=== PATIENT | male | born 1985 | race Caucasian/White ===

== ENCOUNTER 2016-08-23 14:14 | Inpatient (IN) | payer MEDICAID, OTHER ==
[~2016-08-23] VITALS: Ht 182.9 cm; Wt 118.9 kg
[~2016-08-23 14:14] MED LIST: ASPI81TA3 PO; CARV12.579 PO; FENO48TA4 PO; FURO40TA4 PO; LISI10TA2 PO; LORA1TAB PO
--- NOTE | 2016-08-23 14:23 | ERA ---
ER Documentation Chief Complaint Date/Time DATE: 08/23/16 TIME: 14:23 Chief Complaint facial and right arm numbness; slurred speech HPI The patient is a 30-year-old male, presenting to the ER because of left facial numbness, left upper extremity weakness, slurred speech that began about 8 pm last night. He denies headache, dizziness, neck pain, chest pain, abdominal pain, vomiting, dysuria, diarrhea. He denies diarrhea, constipation. He smokes half a pack a day, drinks socially, does amphetamine Past medical history: Hypertension, dyslipidemia Past surgical history: None ROS All systems reviewed and are negative except as per history of present illness. Medications Home Meds Active Scripts Lorazepam* (Lorazepam*) 1 Mg Tablet, 1 MG PO HS Y for ANXIETY, #20 TAB Prov:XAVIER HARVEY NP 10/20/15 Lisinopril* (Lisinopril*) 10 Mg Tablet, 10 MG PO BID for 30 Days, TAB Prov:XAVIER HARVEY NP 10/20/15 Furosemide* (Furosemide*) 40 Mg Tablet, 40 MG PO DAILY for 30 Days, TAB Prov:XAVIER HARVEY NP 10/20/15 Fenofibrate Nanocrystallized* (Fenofibrate*) 48 Mg Tablet, 48 MG PO DAILY for 30 Days, TAB Prov:XAVIER HARVEY NP 10/20/15 Carvedilol* (Carvedilol*) 12.5 Mg Tablet, 12.5 MG PO BID for 30 Days, TAB Prov:XAVIER HARVEY NP 10/20/15 Aspirin (Aspirin) 81 Mg Chew, 81 MG PO DAILY for 30 Days, TAB Prov:XAVIER HARVEY NP 10/20/15 Reported Medications Clonidine Hcl* (Clonidine Hcl*) 0.1 Mg Tab, 0.1 MG PO Q8, TAB 08/23/16 Allergies Allergies: Coded Allergies: No Known Allergy (Unverified , 10/16/15) PMhx/Soc History of Surgery: No Anesthesia Reaction: No Hx Neurological Disorder: No Hx Respiratory Disorders: No Hx Cardiac Disorders: Yes (DENIES BUT NEW ONSET CHF) Hx Psychiatric Problems: No Hx Miscellaneous Medical Probl: No Hx Alcohol Use: Yes Hx Substance Use: Yes Physical Exam Vitals Vital Signs Date Time Temp Pulse Resp B/P Pulse Ox O2 Delivery O2 Flow Rate FiO2 08/23/16 16:06 100 20 129/100 99 Nasal Cannula 2.0 08/23/16 14:53 89 20 150/97 99 Nasal Cannula 2.0 08/23/16 14:43 Nasal Cannula 2 08/23/16 14:17 98.0 93 19 176/123 100 Physical Exam Const: No acute distress. Head: Atraumatic. Eyes: Normal Conjunctiva. ENT: Normal External Ears, Nose and Mouth. Neck: Full range of motion. No meningismus. Resp: Clear to auscultation bilaterally. Cardio: Regular rate and rhythm, no murmurs. Abd: Soft, non distended, normal bowel sounds, non tender. Skin: No petechiae or rashes. Back: No midline or flank tenderness. Ext: No cyanosis, or edema. Neur: Awake and alert. Left facial droop, left upper extremity 4+, right upper and right lower and left lower extremity 5/5 Psych: Normal Mood and Affect. Result Diagram: 08/23/16 1430 08/23/16 1430 Results 24 hrs Laboratory Tests Test 08/23/16 14:30 Activated Partial Thromboplast Time 31.5Sec Anion Gap 15 Basophils # 0.110^3/ul Basophils % 0.5% Blood Urea Nitrogen 19mg/dl Calcium Level 8.7mg/dl Carbon Dioxide Level 28mmol/L Chloride Level 105mmol/L Creatinine 1.08mg/dl Eosinophils # 0.210^3/ul Eosinophils % 1.6% Ethyl Alcohol Level < 10.0mg/dl Glucose Level 80mg/dl Hematocrit 42.6% Hemoglobin 13.1g/dl INR International Normalized Ratio 1.30 Lymphocytes # 1.710^3/ul Lymphocytes % 15.8% Mean Corpuscular Hemoglobin 26.4pg Mean Corpuscular Hemoglobin Concent 30.8g/dl Mean Corpuscular Volume 85.9fl Mean Platelet Volume 10.2fl Monocytes # 0.810^3/ul Monocytes % 7.3% Neutrophils # 8.110^3/ul Neutrophils % 74.3% Nucleated Red Blood Cells # 0.010^3/ul Nucleated Red Blood Cells % 0.0/100WBC Platelet Count 80035^3/UL Potassium Level 3.4mmol/L Prothrombin Time 16.3Sec Prothrombin Time Ratio 1.3 Red Blood Count 4.9610^6/ul Red Cell Distribution Width 13.7% Sodium Level 145mmol/L White Blood Count 10.910^3/ul Current Medications Medications (Trade) Dose Ordered Sig/Umer Route PRN Reason Start Time Stop Time Status Last Admin Dose Admin Potassium Chloride/Sodium Chloride (KCl/NS) 110 ml @ 55 mls/hr ONCE ONCE IVPB 08/23/16 16:30 08/23/16 18:29 08/23/16 16:52 Aspirin (Aspirin) 325 mg ONCE ONCE PO 08/23/16 16:30 08/23/16 16:31 DC 08/23/16 16:38 Labetalol HCl (Labetalol) 10 mg ONCE ONCE IV 08/23/16 17:30 08/23/16 17:31 DC 08/23/16 17:26 Procedures/MDM [place] [id number] Radiology Main Line: [phone] DIAGNOSTIC IMAGING REPORT Patient: CYN GOODMAN : 1985 Age: 30 Sex: M MR #: [id number] DOS: 08/23/16 1428 Ordering MD: RAKESH SANTOYO MD Location: E/R Room/Bed: PROCEDURE: XR Chest. CLINICAL INDICATION: Stroke. Dyspnea. TECHNIQUE: Single frontal chest x-ray. COMPARISON: 10/18/2015 FINDINGS: The lungs are clear of acute infiltrates, edema, effusions, or masses. Low lung volumes with cardiomegaly is again noted.. .. The osseous structures are intact. IMPRESSION: No acute cardiopulmonary disease. Cardiomegaly. RPTAT: VV .Milad Escobedo MD, Date Time Electronically viewed and signed by .Milad Escobedo MD, MD on 08/23/2016 15:18 .L/ CC: RAKESH SANTOYO MD [place] [id number] Radiology Main Line: [phone] DIAGNOSTIC IMAGING REPORT Patient: CYN GOODMAN : 1985 Age: 30 Sex: M MR #: [id number] DOS: 08/23/16 1428 Ordering MD: RAKESH SANTOYO MD Location: E/R Room/Bed: PROCEDURE: CT Head without. CLINICAL INDICATION: Facial paralysis, possible stroke. TECHNIQUE: The study was performed utilizing a multi-slice, multidetector CT scanner. Direct spiral 1 mm axial sections were obtained through the head without the use of intravenous contrast material. 1 or more of the following dose reduction techniques were utilized: Automated exposure control, adjustment of the mA and/or kV according to patient's size, iterative reconstruction technique. Coronal and sagittal reformations were obtained. The images were reviewed on a PACS workstation. RADIATION DOSE: CTDIvol: 43.3 mGy DLP: 630.2 mGy-cm COMPARISON: No prior studies are available for comparison. FINDINGS: There is no intracranial hemorrhage, extra-axial fluid collection, mass lesion, midline shift or hydrocephalus. The ventricles, sulci and cisterns are within normal limits. The white matter is unremarkable. The kim-white matter differentiation is preserved. The basal cisterns are patent. The midline structures are intact. The orbits, calvarium and extracranial soft tissues are normal in appearance. The visualized paranasal sinuses, mastoid air cells and middle ear cavities are normally aerated. IMPRESSION: 1. No acute intracranial abnormality. No intracranial hemorrhage, extra-axial fluid collection, mass lesion or hydrocephalous. 2. No definite extension of hypodensity through the cortex to suggest acute infarct at this time. If clinical concern for infarct, MRI is recommended for further evaluation. RPTAT: DD .Gildardo Pena MD, MD Date Time Electronically viewed and signed by .Gildardo Pena MD, MD on 08/23/2016 14: 47 .S/ CC: RAKESH SANTOYO MD EKG: Read by emergency physician Rate/Rhythm: Normal Sinus Rhythm 85 beats/min QRS, ST, T-waves: No ST elevation, PAC, incomplete right bundle branch block , inferior lateral T abnormality Impression: Abnormal EKG MEDICAL MAKING DECISION: The patient is a 30-year-old male, presenting with subacute CVA with left upper extremity weakness, acute hypokalemia. He was treated with potassium chloride 20 mEq IV, aspirin 325 mg p.o. The differential diagnoses considered include but are not limited to central causes such as cerebellar infarct, cerebellar hemorrhage, cerebellar tumor, acoustic neuroma, peripheral causes such as benign positional vertigo, labyrinthitis, medication, Meniere's disease. Departure Diagnosis: Primary Impression: CVA (cerebral vascular accident) Additional Impression: Hypokalemia Condition: Stable Comments I discussed the findings with the patient. I discussed the patient with his physician Dr. Liriano who was made aware of the lab, the treatment, the patient condition. The patient is admitted to telemetry at 4:45 pm RAKESH SANTOYO MD Aug 23, 2016 14:23
--- NOTE | 2016-08-23 14:48 | RADRPT ---
PROCEDURE: CT Head without. CLINICAL INDICATION: Facial paralysis, possible stroke. TECHNIQUE: The study was performed utilizing a multi-slice, multidetector CT scanner. Direct spira l 1 mm axial sections were obtained through the head without the use of intravenous contrast materia l. 1 or more of the following dose reduction techniques were utilized: Automated exposure control, adjustment of the mA and/or kV according to patient's size, iterative reconstruction technique. Co sugar and sagittal reformations were obtained. The images were reviewed on a PACS workstation. RADIATION DOSE: CTDIvol: 43.3 mGyDLP: 630.2 mGy-cm COMPARISON: No prior studies are available for comparison. FINDINGS: There is no intracranial hemorrhage, extra-axial fluid collection, mass lesion, midline shift or hyd rocephalus. The ventricles, sulci and cisterns are within normal limits. The white matter is unrem arkable. The kim-white matter differentiation is preserved. The basal cisterns are patent. The m idline structures are intact. The orbits, calvarium and extracranial soft tissues are normal in kassie earance. The visualized paranasal sinuses, mastoid air cells and middle ear cavities are normally ae rated. IMPRESSION: 1. No acute intracranial abnormality. No intracranial hemorrhage, extra-axial fluid collection, ma ss lesion or hydrocephalous. 2. No definite extension of hypodensity through the cortex to suggest acute infarct at this time. If clinical concern for infarct, MRI is recommended for further evaluation. RPTAT: DD .Gildardo Pena MD, MD Date Time Electronically viewed and signed by .Gildardo Pena MD, on 08/23/2016 14:47 .S/
[2016-08-23 14:50] LABS: ADD SCAN DIFF NO
[2016-08-23 15:00] LABS: BASOPHIL # 0.1 10^3/ul (0.0-0.1); BASOPHILS % 0.5 % (0.0-2.0); EOSINOPHILS # 0.2 10^3/ul (0.0-0.5); EOSINOPHILS % 1.6 % (0.0-7.0); HEMATOCRIT 42.6 % (42.0-52.0); HEMOGLOBIN 13.1 g/dl (14.0-18.0); LYMPHOCYTES # 1.7 10^3/ul (0.8-2.9); LYMPHOCYTES % 15.8 % (15.0-51.0); MEAN CORPUSCULAR HEMOGLOBIN 26.4 pg (29.0-33.0); MEAN CORPUSCULAR HGB CONC 30.8 g/dl (32.0-37.0); MEAN CORPUSCULAR VOLUME 85.9 fl (82.0-101.0); MEAN PLATELET VOLUME 10.2 fl (7.4-10.4); MONOCYTE # 0.8 10^3/ul (0.3-0.9); MONOCYTES % 7.3 % (0.0-11.0); NEUTROPHIL # 8.1 10^3/ul (1.6-7.5); NEUTROPHILS % 74.3 % (39.0-77.0); PLATELET COUNT 407 10^3/UL (140-415); RED BLOOD COUNT 4.96 10^6/ul (4.70-6.10); RED CELL DISTRIBUTION WIDTH 13.7 % (11.5-14.5); WHITE BLOOD COUNT 10.9 10^3/ul (4.8-10.8)
[2016-08-23 15:07] LABS: INR 1.3; PROTIME 16.3 Sec (12.2-14.2); PT RATIO 1.3
[2016-08-23 15:08] LABS: PARTIAL THROMBOPLASTIN TIME 31.5 Sec (25.0-35.0)
[2016-08-23 15:12] LABS: CHLORIDE 105 mmol/L (97-110)
[2016-08-23 15:13] LABS: POTASSIUM 3.4 mmol/L (3.5-5.1); SODIUM 145 mmol/L (135-144)
[2016-08-23 15:15] LABS: CREATININE 1.08 mg/dl (0.61-1.24)
[2016-08-23 15:16] LABS: ANION GAP 15 (8-16); BLOOD UREA NITROGEN 19 mg/dl (7-20); CALCIUM 8.7 mg/dl (8.4-10.2); CARBON DIOXIDE 28 mmol/L (21-31); GLUCOSE 80 mg/dl (70-220)
[2016-08-23] MEDS ORDERED: CLON-379 PO (15:18)
--- NOTE | 2016-08-23 15:19 | RADRPT ---
PROCEDURE: XR Chest. CLINICAL INDICATION: Stroke. Dyspnea. TECHNIQUE: Single frontal chest x-ray. COMPARISON: 10/18/2015 FINDINGS: The lungs are clear of acute infiltrates, edema, effusions, or masses. Low lung volumes with cardiom egaly is again noted.. .. The osseous structures are intact. IMPRESSION: No acute cardiopulmonary disease. Cardiomegaly. RPTAT: VV .Milad Escobedo MD, MD Date Time Electronically viewed and signed by .Milad Escobedo MD, on 08/23/2016 15:18 .L/
[2016-08-23 16:26] LABS: ETHANOL < 10.0 mg/dl
[2016-08-23] MEDS ORDERED: POTASSIUM CHLORIDE 20 MEQ in SOD CHLORIDE 0.9% 100 ML IVPB ONE (16:30)
[2016-08-23] MEDS ORDERED: ASPIRIN 325 MG TAB PO ONE (16:30)
[2016-08-23] MEDS ORDERED: LABETALOL HCL 20MG INJ IV ONE (17:30)
[2016-08-23 18:24] VITALS: TEMP 98
[2016-08-23 20:00] VITALS: BP 146/95; PULSE 89; RESP 24
[2016-08-23] MEDS ORDERED: ACETAMINOPHEN 325 MG TAB PO PRN (20:00)
[2016-08-23 20:36] VITALS: PULSE 88
--- NOTE | 2016-08-23 22:46 | RADRPT ---
PROCEDURE: Carotid ultrasound CLINICAL INDICATION: Stroke, carotid bruits TECHNIQUE: Fitzgerald scale, color doppler, spectral doppler ultrasound of the bilateral carotid and romario tebral arteries. This study indirectly references the measurement of the distal ICA diameter as the denominator for s tenosis measurement. Validated velocity measurements with angiographic measurements, velocity criter ia are extrapolated from diameter data as defined by: *Cartoid artery stenosis: fitzgerald-scale and Doppl er US diagnosis. Society of Radiologists in Ultrasound Consensus Conference. Radiology 2003; 229: 34 0-346. SRU Consensus Conference Criteria for the Diagnosis of Carotid Artery Stenosis* Degree of Stenosis, % ICA PSV, cm/sec Plaque Estimate, % ICA/CCA PSV Ratio Normal <125 None <2.0 <50 <125 <50 <2.0 50 69 125-230 >50 2.0-4.0 >70 but less than near occlusion >230 >50 <4.0 Near occlusion High, low, or undetectable Visible Variable Total occlusion Undetectable Visible, no detectable lumen Not applicable COMPARISON: No prior studies are available for comparison. FINDINGS: Location Right CCA43 cm/sec Prox ICA 28 cm/sec Mid ICA36 cm/sec Dist ICA32 cm/sec ECA51 cm/sec ICA/CCA0.9 Left CCA53 cm/sec Prox ICA 25 cm/sec Mid ICA23 cm/sec Dist ICA27 cm/sec ECA61 cm/sec ICA/CCA0.5 Plaque burden: A minimal amount of plaque is present within the visualized portions of both internal carotid arteries however there is no evidence of flow acceleration to suggest a hemodynamically sig nificant stenosis. Antegrade flow is seen within the vertebral arteries bilaterally. IMPRESSION: A minimal amount of plaque is present within the visualized portions of both internal carotid arteri es however there is no evidence of flow acceleration to suggest a hemodynamically significant stenos is. Low velocities and attenuated waveforms bilaterally may be secondary to heart failure. RPTAT: AADD .Roque Ríos MD, Date Time Electronically viewed and signed by .Roque Ríos MD, MD on 08/23/2016 22:46 .B/
--- NOTE | 2016-08-23 23:17 | RADRPT ---
PROCEDURE: MRI Brain without contrast. CLINICAL INDICATION: Facial paralysis and possible stroke TECHNIQUE: An MRI of the brain was performed on a high resolution hi-definition MRI scanner utiliz ing the following sequences: Sagittal and axial T1 weighted, axial T2 weighted, coronal GRE, axial diffusion weighted with ADC mapping, coronal GRE, and axial FLAIR. COMPARISON: CT brain 08/23/2016 FINDINGS: Mild motion artifact degrades the optimal quality of the study. The scalp and calvarium are normal. The visualized orbits are normal. The paranasal sinuses are rem arkable for mild chronic bilateral maxillary sinus disease. The bilateral mastoid air cells and mid dle ear cavities are clear. On diffusion weighted sequences, restricted diffusion is present in the right posterior frontal rainer r cortex extending from the deep centrum semiovale to the peripheral cortex. In addition a punctate focus of restricted diffusion is also noted in the right occipital cortex. The this is compatible with acute non hemorrhagic infarcts. No extra-axial fluid collections are present. The ventricles and sulci are normal in size and config uration. No evidence of intracranial hemorrhage, mass effect or midline shift is present. No hypoint ense signal abnormalities are seen on the GRE images to suggest the presence of blood degradation pr oducts. decreased flow void is noted in the distal right middle cerebral artery M2 and distal seg ments of the sylvian fissure. IMPRESSION: 1. Acute right frontal lobe and motor cortex non hemorrhagic infarcts and punctate right occipital cortical infarct. Recommend evaluation for embolic etiology. 2. No evidence for acute hemorrhage, hydrocephalus or herniation. 3. Mild chronic bilateral maxillary sinus disease. A call report was made to GIRISH PASCUAL at 08/23/2016 11:13:18 PM following the completion of t he examination by the undersigned. RPTAT: HDC .Peri Guerrero MD, MD Date Time Electronically viewed and signed by .Peri Guerrero MD, MD on 08/23/2016 23:16 .C/
[2016-08-24] VITALS (12 sets, daily range): BP systolic 132–154; BP diastolic 84–104; PULSE 83–98; RESP 17–19; Ht 182.9 cm; Wt 118.9 kg
[2016-08-24] MEDS: ATORVASTATIN 40 MG TAB PO SCH ×2 (00:55→20:50)
[2016-08-24] MEDS ORDERED: NS + KCL 20 MEQ 1,000 ML IV SCH (01:30)
[2016-08-24] MEDS ORDERED: LORAZEPAM 1 MG TAB PO ONE (01:30)
[2016-08-24] MEDS ORDERED: DEXTROSE 5%-0.45% NACL 1,000 ML IV SCH (01:30)
--- NOTE | 2016-08-24 03:38 | CONS ---
DATE OF ADMISSION: 08/23/2016 DATE OF CONSULTATION: 08/23/2016 NEUROLOGY CONSULTATION Thank you, Dr. Liriano, for your kind referral for evaluation of acute stroke. HISTORY OF PRESENT ILLNESS: The patient is a 30-year-old gentleman with past medical history of hyp ertension for the last 2 years on medications for it as well as history of amphetamine abuse who yes terday developed weakness and discoordination in the left upper extremity as well as some facial num bness and slurred speech. He had CAT scan of the head in the emergency department which shows no ac lluvia abnormality. Chest x-ray: Cardiomegaly. Labs: WBC count 11, hemoglobin 13, hematocrit 42. T he rest were within normal limits. Sodium 145, potassium 3.4, chloride 105, bicarbonate 28, BUN 19, creatinine 1.08, normal glucose and calcium. PT 16, PTT 31. Tox screen was not done, but alcohol level is absent. HOME MEDICATIONS: 1. Carvedilol. 2. Clonidine. 3. Fenofibrate. 4. Lisinopril. 5. Aspirin 81 mg. 6. Lorazepam for anxiety. 7. Lasix. CURRENT MEDICATIONS: He is on 1. Aspirin. 2. Tylenol as needed for pain. He complains of headache, but it is gone by now. The patient denies any swallowing difficulties sta ting he was able to drink without any problems. ALLERGIES: THE PATIENT IS NOT ALLERGIC TO ANYTHING. SOCIAL HISTORY: Cigarette smoker, about half a pack per day, as well as episodic amphetamine smoker as well, stating that the last drug use was about 1 week ago. Occasional mild alcohol use. FAMILY HISTORY: Hypertension. REVIEW OF SYSTEMS: All pertinent positives included in the above history of present illness. PHYSICAL EXAMINATION: VITAL SIGNS: Temperature 98.0, pulse 88, respirations 18, blood pressure 113/62. GENERAL: Not in acute distress, sitting on the edge of the bed. HEENT: Normocephalic, atraumatic head. Obese. NECK: Supple. No carotid bruit. LUNGS: Clear to auscultation bilaterally. CARDIAC: Normal cardiac rhythm and sounds. ABDOMEN: Soft, nontender. EXTREMITIES: No cyanosis, clubbing, or edema. NEUROLOGIC: He is awake, alert, and oriented x3 with fluent speech. Cranial nerve examination show s intact visual ugarte bilaterally. Pupils round, reactive from 3 to 2 mm bilaterally. Extraocular movements intact without nystagmus. Mildly asymmetrical face with left nasolabial fold flattening but normal facial sensation. Corneal reflexes present bilaterally as well as gag. Slight deviation of the tongue to the right upon protrusion. Motor strength examination shows about 3/5 strength in the left upper extremity, normal bulk and tone. Sensory examination intact to light touch and pain . Deep tendon reflexes 2+ throughout. Equivocal response to plantar stimulation on the left, downg oing on the right. Coordination examination shows normal [id number] testing on the right and some dysmetria, but no tremor on the left. Gait was not assessed. The patient is hungry and asking for food. IMPRESSION: Acute ischemic stroke in a 30-year-old gentleman with amphetamine abuse as well as hist ory of hypertension as well as smoking. For further evaluation of stroke, we will obtain MRI of the brain, carotid ultrasound, echocardiogram. EKG showed sinus rhythm. So far, we will continue aspi rin for secondary stroke prevention. Keep patient euglycemic. It is okay to allow elevated blood p ressure in the first few days after acute stroke as high as 220/120, and control if higher than thes e numbers. Gradually obtain control over time. We will get formal swallow evaluation and physical therapy evaluation on the patient. We will get his lipid profile as well and start on Lipitor. Thank you very much for this interesting consultation. Dictated By: SAMARA MONTILLA/PANTERA Conf#: [id number] DID#: [id number]
[2016-08-24] MEDS: FUROSEMIDE 40 MG INJ IV SCH (04:44)
[2016-08-24] MEDS ORDERED: ALBUTEROL/IPRATROPIUM (NEB) 3 ML AMP HHN PRN (05:00)
--- NOTE | 2016-08-24 05:43 | HP ---
DATE OF ADMISSION: 08/23/2016 CHIEF COMPLAINT: Left arm weakness, left facial numbness, and slurred speech. HISTORY OF PRESENT ILLNESS: The patient is a 30-year-old gentleman with history of amphetamine abus e, cardiomyopathy with EF of 25% back in 2016. Also history of pulmonary hypertension, hypertension , and dyslipidemia but has not been taking any medication. Noted left-sided weakness, slurred speec h and left facial numbness yesterday at 8 p.m. but did not seek any medical advice and came to ER to day. The patient was not a candidate for TPA. CT of the head was negative. The patient was diagno sed with possible CVA and is being admitted for further evaluation and management. The patient rita es any chest pain. The patient does have shortness of breath on exertion due to cardiomyopathy. No recent fever or chills. No history of bleeding from any site. No history of leg edema. No histor y of abdominal distention. The patient denied any history of . The patient did have headache. The patient is being admitted for further evaluation and management. PAST MEDICAL HISTORY: As stated above. PAST SURGICAL HISTORY: None. ALLERGIES: NONE. HOME MEDICATIONS: None. FAMILY HISTORY: Mother with a history of heart attack. SOCIAL HISTORY: Patient smokes cigarettes, also drinks almost every other day. He uses [employer]. PHYSICAL EXAMINATION: GENERAL: The patient is conscious, awake, alert. VITAL SIGNS: Temperature 98, pulse 87, respirations 18, blood pressure 113/62, O2 saturation 100% o n room air. HEENT: Atraumatic, normocephalic. Conjunctivae and lids normal. Oropharynx clear. NECK: Supple. No mass, no thyromegaly. CHEST: Fairly clear. No use of accessory muscles. CARDIOVASCULAR: S1, S2 normal. No murmur, gallop, or rub. ABDOMEN: Soft, nondistended, nontender. EXTREMITIES: No leg edema. NEUROLOGIC: The patient is awake, alert, follows simple commands, has left-sided facial weakness, l eft upper extremity weakness and minimal left leg weakness. Detailed neuro examination as per Dr. Ti Rice who has been consulted from neurology standpoint. LABORATORY DATA: WBC 10.9, hemoglobin 13.1, platelets 407. Sodium , potassium 3.4, BUN 19, cr eatinine 1, glucose 80. IMPRESSION: 1. Possible cerebrovascular accident. 2. Severe cardiomyopathy. 3. Amphetamine abuse. 4. Tobacco abuse. 5. Mild hypokalemia. PLAN: The patient admitted on telemetry floor. The patient received IV potassium in the ER and mari l be started on aspirin, Lipitor and symptomatic treatment. We will obtain speech therapy, physical therapy and occupational therapy. We will also obtain MRI of the head, carotid Doppler and echocar diogram. Neuro consultation with Dr. Shun Rice has been obtained. Further recommendation s will depend on the patient's hospital course. The patient was strongly advised to quit using bertha evaristo meth and to be more compliant due to multiple medical conditions. Once the patient is able to t huey p.o., he will be started on NIDA inhibitor and beta-scott and will also Lasix. Further recommen dation depends on patient's hospital course. Dictated By: ZACHARIAH AGUILAR MD AB/NTS Conf#: [id number] DID#: [id number] CC: ZACHARIAH AGUILAR MD;*EndCC*
[2016-08-24] MEDS ORDERED: FUROSEMIDE 40 MG TAB PO SCH (06:00)
[2016-08-24] MEDS ORDERED: ASPIRIN 81 MG TAB PO SCH (09:00)
[2016-08-24] MEDS: ASPIRIN 81 MG TAB PO SCH (09:36)
[2016-08-24] MEDS: LISINOPRIL 10 MG TAB PO SCH (09:39)
[2016-08-24] MEDS: FENOFIBRATE 48 MG TAB PO SCH (09:39)
[2016-08-24 13:20] LABS: ADD SCAN DIFF NO
[2016-08-24 13:25] LABS: BASOPHIL # 0.1 10^3/ul (0.0-0.1); BASOPHILS % 0.6 % (0.0-2.0); EOSINOPHILS # 0.1 10^3/ul (0.0-0.5); EOSINOPHILS % 1.2 % (0.0-7.0); HEMATOCRIT 42.1 % (42.0-52.0); HEMOGLOBIN 13.3 g/dl (14.0-18.0); LYMPHOCYTES # 2.4 10^3/ul (0.8-2.9); LYMPHOCYTES % 21.6 % (15.0-51.0); MEAN CORPUSCULAR HEMOGLOBIN 26.1 pg (29.0-33.0); MEAN CORPUSCULAR HGB CONC 31.6 g/dl (32.0-37.0); MEAN CORPUSCULAR VOLUME 82.7 fl (82.0-101.0); MEAN PLATELET VOLUME 9.9 fl (7.4-10.4); MONOCYTES % 9.1 % (0.0-11.0); NEUTROPHIL # 7.4 10^3/ul (1.6-7.5); NEUTROPHILS % 66.9 % (39.0-77.0); PLATELET COUNT 453 10^3/UL (140-415); RED BLOOD COUNT 5.09 10^6/ul (4.70-6.10); RED CELL DISTRIBUTION WIDTH 13.7 % (11.5-14.5)
[2016-08-24 13:33] LABS: POTASSIUM 3.3 mmol/L (3.5-5.1)
[2016-08-24 13:36] LABS: CREATININE 0.89 mg/dl (0.61-1.24)
[2016-08-24 13:37] LABS: CALCIUM 8.6 mg/dl (8.4-10.2)
--- NOTE | 2016-08-24 18:07 | PN ---
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 Continue aspirin. Allow for permissive hypertension. Dr. Rice is following in neurology consultation. PT OT eval. - Severe cardiomyopathy with ejection fraction of 25%. Dr. Montelongo is asked to see patient in cardiology consultation. Continue Lasix, monitor electrolytes. - Amphetamine abuse. Continue gentle hydration. application services manager consult for rehabilitation services. - Tobacco dependence - Hypokalemia, replace potassium. Further recommendations based on clinical course. Plan of care discussed with Dr. Liriano. Subjective 24 Hr Interval Summary Free Text/Dictation Patient is lethargic but easily arousable, follow commands, patient with slurred speech, and left-sided weakness, able to ambulate to the restroom according to RN. Exam/Review of Systems Vital Signs Vitals Vital Signs Date Time Temp Pulse Resp B/P Pulse Ox O2 Delivery O2 Flow Rate FiO2 08/24/16 16:33 90 08/24/16 16:12 98.3 17 132/89 96 08/24/16 14:14 2.0 08/24/16 04:50 Nasal Cannula Intake and Output 08/23/16 08/23/16 08/24/16 15:00 23:00 07:00 Intake Total 700 ml Balance 700 ml Exam Constitutional: alert, obese, well developed Psych: other (Lethargic but easily arousable) Head: atraumatic, normocephalic Eyes: nl conjunctiva ENMT: nl external ears & nose Neck: supple Respiratory: clear to auscultation, normal air movement Cardiovascular: nl pulses, regular rate and rhythm Gastrointestinal: non-tender, soft Musculoskeletal: nl extremities to inspection Extremities: normal pulses Neurological: VESSEL SCRAPPER HELPER II-XII intact, other (Slurred speech, left upper extremity weakness.) Lymph: nl lymph nodes Results Result Diagram: 08/24/16 1230 08/24/16 1230 Results 24 hrs Laboratory Tests Test 08/24/16 12:30 White Blood Count 11.0 H Red Blood Count 5.09 Hemoglobin 13.3 L Hematocrit 42.1 Mean Corpuscular Volume 82.7 Mean Corpuscular Hemoglobin 26.1 L Mean Corpuscular Hemoglobin Concent 31.6 L Red Cell Distribution Width 13.7 Platelet Count 453 H Mean Platelet Volume 9.9 Neutrophils % 66.9 Lymphocytes % 21.6 Monocytes % 9.1 Eosinophils % 1.2 Basophils % 0.6 Nucleated Red Blood Cells % 0.0 Neutrophils # 7.4 Lymphocytes # 2.4 Monocytes # 1.0 H Eosinophils # 0.1 Basophils # 0.1 Nucleated Red Blood Cells # 0.0 Sodium Level 141 Potassium Level 3.3 L Chloride Level 103 Carbon Dioxide Level 24 Anion Gap 17 H Blood Urea Nitrogen 19 Creatinine 0.89 Glucose Level 104 Calcium Level 8.6 Medications Medications Current Medications Acetaminophen (Tylenol Tab) 650 mg Q6H PRN PO PAIN AND OR ELEVATED TEMP Last administered on 08/23/16 20:11; Admin Dose 650 MG; Start 08/23/16 at 20:00 Atorvastatin Calcium (Lipitor) 40 mg HS PO Last administered on 08/24/16 00:55 ; Admin Dose 40 MG; Start 08/23/16 at 21:30 Aspirin (Aspirin) 81 mg DAILY PO Last administered on 08/24/16 09:36; Admin Dose 81 MG; Start 08/24/16 at 09:00 Carvedilol (Coreg) 3.125 mg BID PO Last administered on 08/24/16 09:38; Admin Dose 3.125 MG; Start 08/24/16 at 09:00 Fenofibrate (Tricor) 48 mg DAILY PO Last administered on 08/24/16 09:39; Admin Dose 48 MG; Start 08/24/16 at 09:00 Lisinopril (Zestril) 10 mg DAILY PO Last administered on 08/24/16 09:39; Admin Dose 10 MG; Start 08/24/16 at 09:00 Furosemide (Lasix) 40 mg DAILY@06 IV Last administered on 08/24/16 04:44; Admin Dose 40 MG; Start 08/24/16 at 05:00 JEANNA MYERS Aug 24, 2016 18:07
[2016-08-24] MEDS ORDERED: POTASSIUM CHLORIDE 20 MEQ in SOD CHLORIDE 0.9% 100 ML IVPB ONE (18:30)
--- NOTE | 2016-08-24 19:11 | CONS ---
Date/Time of Note Date/Time of Note DATE: 08/24/16 TIME: 19:06 Assessment/Plan Assessment/Plan Additional Assessment/Plan Acute CVA Mild acute decompensated systolic congestive heart failure Severe cardiomyopathy Active crystal meth use Poor medication compliance -Patient with evidence of CVA on examination and brain MRI. Continue aspirin and statin therapy. Beta-scott and NIDA inhibitor as blood pressure and renal function permits. Diuretic therapy as renal function and blood pressure permits. Of importance is medication compliance and cessation of illicit drug use. Consultation Date/Type/Reason Admit Date/Time Aug 23, 2016 at 16:48 Type of Consultation: cv Reason for Consultation Cardiomyopathy Hx of Present Illness This is a 30-year-old male with unfortunate active crystal meth use, cardiomyopathy who presents with left-sided weakness and dysarthria. Patient with clinical evidence of CVA. Symptoms began day before admission. He also complains of shortness of breath which is worsened with exertion. This usually happens after using crystal meth. He admits to not taking any of his medications. He denies any fevers or chills, chest pain. Shortness of breath has since improved. 12 point review of systems was performed with all pertinent positives and negatives mentioned above and all else is negative Psychological: other (Lethargic but easily arousable) Past Medical History Medical History: congestive heart failure, hypertension Past Surgical History Past Surgical Hx: no surgical history Family History Significant Family History: no pertinent family hx Social History Smoking Status: Former smoker Drug Use: none (Active crystal meth use) Exam/Review of Systems Vital Signs Vitals Vital Signs Date Time Temp Pulse Resp B/P Pulse Ox O2 Delivery O2 Flow Rate FiO2 08/24/16 16:33 90 08/24/16 16:12 98.3 17 132/89 96 08/24/16 14:14 2.0 08/24/16 04:50 Nasal Cannula Intake and Output 08/23/16 08/23/16 08/24/16 15:00 23:00 07:00 Intake Total 700 ml Balance 700 ml Exam Dysarthria Constitutional: alert, obese, oriented Head: normocephalic Neck: supple Respiratory: other (Coarse breath sounds bilaterally, no wheezing rhonchi) Cardiovascular: other (S1-S2 heard), regular rate and rhythm Gastrointestinal: bowel sounds, non-tender, other (No guarding), soft Extremities: edema (Trace), other (No cyanosis) Results Result Diagram: 08/24/16 1230 08/24/16 1230 Results 24 hrs Laboratory Tests Test 08/24/16 12:30 White Blood Count 11.0 H Red Blood Count 5.09 Hemoglobin 13.3 L Hematocrit 42.1 Mean Corpuscular Volume 82.7 Mean Corpuscular Hemoglobin 26.1 L Mean Corpuscular Hemoglobin Concent 31.6 L Red Cell Distribution Width 13.7 Platelet Count 453 H Mean Platelet Volume 9.9 Neutrophils % 66.9 Lymphocytes % 21.6 Monocytes % 9.1 Eosinophils % 1.2 Basophils % 0.6 Nucleated Red Blood Cells % 0.0 Neutrophils # 7.4 Lymphocytes # 2.4 Monocytes # 1.0 H Eosinophils # 0.1 Basophils # 0.1 Nucleated Red Blood Cells # 0.0 Sodium Level 141 Potassium Level 3.3 L Chloride Level 103 Carbon Dioxide Level 24 Anion Gap 17 H Blood Urea Nitrogen 19 Creatinine 0.89 Glucose Level 104 Calcium Level 8.6 Medications Medications Current Medications Acetaminophen (Tylenol Tab) 650 mg Q6H PRN PO PAIN AND OR ELEVATED TEMP Last administered on 08/23/16 20:11; Admin Dose 650 MG; Start 08/23/16 at 20:00 Atorvastatin Calcium (Lipitor) 40 mg HS PO Last administered on 08/24/16 00:55 ; Admin Dose 40 MG; Start 08/23/16 at 21:30 Aspirin (Aspirin) 81 mg DAILY PO Last administered on 08/24/16 09:36; Admin Dose 81 MG; Start 08/24/16 at 09:00 Carvedilol (Coreg) 3.125 mg BID PO Last administered on 08/24/16 09:38; Admin Dose 3.125 MG; Start 08/24/16 at 09:00 Fenofibrate (Tricor) 48 mg DAILY PO Last administered on 08/24/16 09:39; Admin Dose 48 MG; Start 08/24/16 at 09:00 Lisinopril (Zestril) 10 mg DAILY PO Last administered on 08/24/16 09:39; Admin Dose 10 MG; Start 08/24/16 at 09:00 Furosemide 40 mg 40 mg DAILY@06 IV Last administered on 08/24/16 04:44; Admin Dose 40 MG; Start 08/24/16 at 05:00 Potassium Chloride/Sodium Chloride (KCl/NS) 110 ml @ 55 mls/hr ONCE ONCE IVPB ; Start 08/24/16 at 18:30; Stop 08/24/16 at 20:29 Procedures Procedures ECG demonstrates sinus rhythm nurse taking care, incomplete left bundle branch block with QRS 116 ms, nonspecific T-wave abnormalities, left ventricular hypertrophy Redd Montelongo DO Aug 24, 2016 19:11
--- NOTE | 2016-08-24 20:27 | RADRPT ---
Echocardiogram Report Patient Name: CYN GOODMAN Gender: Male Date: 1985 Study Date: 24-Aug-2016 Wastewater Manager: Дмитрий Samuels [facility] Location: [id number] Ref. Physician: SAMARA STOUT Quality: Technically Difficult Study Procedures: Transthoracic echocardiogram with complete 2D, M-Mode, and doppler examination. Indications: Cerebrovascular Accident. 2D/M Mode Doppler Measurement Value Normal Ranges Measurement Value Normal Ranges LVIDd 2D 6.8 3.5 - 5.6 cm AV Peak Dexter 1.2 m/sec LVIDs 2D 5.9 2.1 - 4.1 cm AV Peak PG 5.5 mmHg LVPWd 2D 1.0 0.6 - 1.1 cm LVOT Peak Dexter 0.5 m/sec IVSd 2D 0.9 0.6 - 1.1 cm LVOT Peak PG 1.1 mmHg AoR Diam 2D 2.9 2.0 - 3.7 cm TR Peak Dexter 3.0 m/sec EDV 2D 239.6 cm3 TR Peak PG 35.1 mmHg ESV 2D 209.2 cm3 RVSP 50.0 mmHg LA Dimen 2D 5.4 2.3 - 4.0 cm Findings Left Ventricle: Normal left ventricular wall thickness. Severe enlargement of left ventricle cavity. Severe global left ventricular systolic dysfunction. Ejection fraction is visually estimated at 20 %. Right Ventricle: Mild enlargement of right ventricle. Left Atrium: There is severe enlargement of left atrium. Right Atrium: There is moderate enlargement of right atrium. Mitral Valve: Normal appearance of the mitral valve. Mild mitral valve regurgitation. Aortic Valve: Normal appearance of the aortic valve. No significant aortic stenosis or insufficiency. Tricuspid Valve: Estimated peak PA systolic pressure 50 mmHg. There is mild tricuspid regurgitation. Pulmonic Valve: Pulmonic valve not well visualized. There is mild pulmonic regurgitation. Pericardium: Normal pericardium with no significant pericardial effusion. Aorta: Normal aortic root. IVC: Dilated IVC without respiratory collapse consistent with elevated right atrial pressure. Conclusions Normal left ventricular wall thickness. Severe enlargement of left ventricle cavity. Severe global left ventricular systolic dysfunction. Ejection fraction is visually estimated at 20 %. Mild enlargement of right ventricle. There is severe enlargement of left atrium. There is moderate enlargement of right atrium. Normal appearance of the mitral valve. Mild mitral valve regurgitation. Estimated peak PA systolic pressure 50 mmHg. There is mild tricuspid regurgitation. Pulmonic valve not well visualized. There is mild pulmonic regurgitation. Electronically Signed By: Ronald Majano 24-Aug-2016 20:27:01 -0700 Patient Name: CYN GOODMAN Study Date: 24-Aug-2016 [id number]
--- NOTE | 2016-08-24 20:43 | CONS ---
Date/Time of Note Date/Time of Note DATE: 08/24/16 TIME: 20:40 Consult Date/Type/Reason Admit Date/Time Aug 23, 2016 at 16:48 Initial Consult Date Type of Consultation: neurology Subjective No acute events. No headache. same weakness Objective Vital Signs Date Time Temp Pulse Resp B/P Pulse Ox O2 Delivery O2 Flow Rate FiO2 08/24/16 16:33 90 08/24/16 16:12 98.3 17 132/89 96 08/24/16 14:14 2.0 08/24/16 04:50 Nasal Cannula Intake and Output 08/23/16 08/23/16 08/24/16 15:00 23:00 07:00 Intake Total 700 ml Balance 700 ml Results/Medications Result Diagram: 08/24/16 1230 08/24/16 1230 Results 24 hrs Laboratory Tests Test 08/24/16 12:30 White Blood Count 11.0 H Red Blood Count 5.09 Hemoglobin 13.3 L Hematocrit 42.1 Mean Corpuscular Volume 82.7 Mean Corpuscular Hemoglobin 26.1 L Mean Corpuscular Hemoglobin Concent 31.6 L Red Cell Distribution Width 13.7 Platelet Count 453 H Mean Platelet Volume 9.9 Neutrophils % 66.9 Lymphocytes % 21.6 Monocytes % 9.1 Eosinophils % 1.2 Basophils % 0.6 Nucleated Red Blood Cells % 0.0 Neutrophils # 7.4 Lymphocytes # 2.4 Monocytes # 1.0 H Eosinophils # 0.1 Basophils # 0.1 Nucleated Red Blood Cells # 0.0 Sodium Level 141 Potassium Level 3.3 L Chloride Level 103 Carbon Dioxide Level 24 Anion Gap 17 H Blood Urea Nitrogen 19 Creatinine 0.89 Glucose Level 104 Calcium Level 8.6 Medications Current Medications Acetaminophen (Tylenol Tab) 650 mg Q6H PRN PO PAIN AND OR ELEVATED TEMP Last administered on 08/23/16 20:11; Admin Dose 650 MG; Start 08/23/16 at 20:00 Atorvastatin Calcium (Lipitor) 40 mg HS PO Last administered on 08/24/16 00:55 ; Admin Dose 40 MG; Start 08/23/16 at 21:30 Aspirin (Aspirin) 81 mg DAILY PO Last administered on 08/24/16 09:36; Admin Dose 81 MG; Start 08/24/16 at 09:00 Carvedilol (Coreg) 3.125 mg BID PO Last administered on 08/24/16 09:38; Admin Dose 3.125 MG; Start 08/24/16 at 09:00 Fenofibrate (Tricor) 48 mg DAILY PO Last administered on 08/24/16 09:39; Admin Dose 48 MG; Start 08/24/16 at 09:00 Lisinopril (Zestril) 10 mg DAILY PO Last administered on 08/24/16 09:39; Admin Dose 10 MG; Start 08/24/16 at 09:00 Furosemide (Lasix) 40 mg DAILY@06 IV Last administered on 08/24/16 04:44; Admin Dose 40 MG; Start 08/24/16 at 05:00 Assessment/Plan Chief Complaint/Hosp Course PHYSICAL EXAMINATION: GENERAL: Not in acute distress, sitting on the edge of the bed. HEENT: Normocephalic, atraumatic head. Obese. NECK: Supple. No carotid bruit. LUNGS: Clear to auscultation bilaterally. CARDIAC: Normal cardiac rhythm and sounds. ABDOMEN: Soft, nontender. EXTREMITIES: No cyanosis, clubbing, or edema. NEUROLOGIC: He is awake, alert, and oriented x3 with fluent speech. Cranial nerve examination shows intact visual ugarte bilaterally. Pupils round, reactive from 3 to 2 mm bilaterally. Extraocular movements intact without nystagmus. Mildly asymmetrical face with left nasolabial fold flattening but normal facial sensation. Corneal reflexes present bilaterally as well as gag. Slight deviation of the tongue to the right upon protrusion. Motor strength examination shows about 3/5 strength in the left upper extremity, normal bulk and tone. Sensory examination intact to light touch and pain. Deep tendon reflexes 2+ throughout. Equivocal response to plantar stimulation on the left, downgoing on the right. Coordination examination shows normal [id number] testing on the right and some dysmetria, but no tremor on the left. Gait was not assessed. IMPRESSION: Acute ischemic stroke in a 30-year-old gentleman with amphetamine abuse as well as history of hypertension as well as smoking. I will continue aspirin for secondary stroke prevention. Lipitor. Keep patient euglycemic. It is okay to allow elevated blood pressure in the first few days after acute stroke as high as 220/120, then gradually obtain control over time. PT/OT possible rehab Problems: SAMARA STOUT MD Aug 24, 2016 20:43
[2016-08-25] VITALS (11 sets, daily range): BP systolic 107–177; BP diastolic 64–111; PULSE 83–100; RESP 18–21
[2016-08-25] MEDS: FUROSEMIDE 40 MG INJ IV SCH (05:11)
[2016-08-25 07:00] LABS: CHOL/HDL RATIO 4.8 RATIO
[2016-08-25] MEDS: ASPIRIN 81 MG TAB PO SCH (09:22)
[2016-08-25] MEDS: LISINOPRIL 10 MG TAB PO SCH (09:24)
[2016-08-25] MEDS: FENOFIBRATE 48 MG TAB PO SCH (09:24)
[2016-08-25] MEDS ORDERED: POTASSIUM CHLORIDE (SR) 20 MEQ TAB PO STA (15:16)
--- NOTE | 2016-08-25 15:19 | CONS ---
Date/Time of Note Date/Time of Note DATE: 08/25/16 TIME: 15:18 Assessment/Plan Assessment/Plan Additional Assessment/Plan Acute CVA Mild acute decompensated systolic congestive heart failure Severe cardiomyopathy Active crystal meth use Poor medication compliance -Would increase dose of Coreg, continue aspirin and statin therapy, change Lasix to p.o. Check labs Consultation Date/Type/Reason Admit Date/Time Aug 23, 2016 at 16:48 Initial Consult Date Type of Consultation: cv 24 HR Interval Summary Free Text/Dictation Patient with improvement in shortness of breath. Speech has improved. Denies chest pain Exam/Review of Systems Vital Signs Vitals Vital Signs Date Time Temp Pulse Resp B/P Pulse Ox O2 Delivery O2 Flow Rate FiO2 08/25/16 12:36 83 08/25/16 12:08 98.6 19 146/97 100 08/24/16 14:14 2.0 08/24/16 04:50 Nasal Cannula Intake and Output 08/24/16 08/24/16 08/25/16 15:00 23:00 07:00 Intake Total 950 ml Balance 950 ml Exam Dysarthria but improved Constitutional: alert, obese, oriented Head: normocephalic Neck: supple Respiratory: other (Coarse breath sounds bilaterally, no wheezing) Cardiovascular: other (S1-S2 heard), regular rate and rhythm Gastrointestinal: bowel sounds, non-tender, other (No guarding), soft Extremities: edema (Trace), other (No cyanosis) Results Result Diagram: 08/24/16 1230 08/24/16 1230 Results 24 hrs Laboratory Tests Test 08/25/16 06:21 Triglycerides Level 95 Cholesterol Level 120 LDL Cholesterol, Calculated 76 HDL Cholesterol 25 L Cholesterol/HDL Ratio 4.8 Medications Medications Current Medications Acetaminophen (Tylenol Tab) 650 mg Q6H PRN PO PAIN AND OR ELEVATED TEMP Last administered on 08/23/16 20:11; Admin Dose 650 MG; Start 08/23/16 at 20:00 Atorvastatin Calcium (Lipitor) 40 mg HS PO Last administered on 08/24/16 20:50 ; Admin Dose 40 MG; Start 08/23/16 at 21:30 Aspirin (Aspirin) 81 mg DAILY PO Last administered on 08/25/16 09:22; Admin Dose 81 MG; Start 08/24/16 at 09:00 Carvedilol (Coreg) 3.125 mg BID PO Last administered on 08/25/16 09:23; Admin Dose 3.125 MG; Start 08/24/16 at 09:00 Fenofibrate (Tricor) 48 mg DAILY PO Last administered on 08/25/16 09:24; Admin Dose 48 MG; Start 08/24/16 at 09:00 Lisinopril (Zestril) 10 mg DAILY PO Last administered on 08/25/16 09:24; Admin Dose 10 MG; Start 08/24/16 at 09:00 Furosemide (Lasix) 40 mg DAILY@06 IV Last administered on 08/25/16 05:11; Admin Dose 40 MG; Start 08/24/16 at 05:00 Redd Montelongo DO Aug 25, 2016 15:19
[2016-08-25] MEDS: ATORVASTATIN 40 MG TAB PO SCH (20:20)
--- NOTE | 2016-08-25 20:34 | CONS ---
Date/Time of Note Date/Time of Note DATE: 08/25/16 TIME: 20:33 Consult Date/Type/Reason Admit Date/Time Aug 23, 2016 at 16:48 Type of Consultation: neurology Subjective no acute events Objective Vital Signs Date Time Temp Pulse Resp B/P Pulse Ox O2 Delivery O2 Flow Rate FiO2 08/25/16 20:13 98.2 89 18 177/111 95 08/24/16 14:14 2.0 08/24/16 04:50 Nasal Cannula Intake and Output 08/24/16 08/24/16 08/25/16 15:00 23:00 07:00 Intake Total 950 ml Balance 950 ml Results/Medications Result Diagram: 08/24/16 1230 08/24/16 1230 Results 24 hrs Laboratory Tests Test 08/25/16 06:21 Triglycerides Level 95 Cholesterol Level 120 LDL Cholesterol, Calculated 76 HDL Cholesterol 25 L Cholesterol/HDL Ratio 4.8 Medications Current Medications Acetaminophen (Tylenol Tab) 650 mg Q6H PRN PO PAIN AND OR ELEVATED TEMP Last administered on 08/23/16 20:11; Admin Dose 650 MG; Start 08/23/16 at 20:00 Atorvastatin Calcium (Lipitor) 40 mg HS PO Last administered on 08/25/16 20:20 ; Admin Dose 40 MG; Start 08/23/16 at 21:30 Aspirin (Aspirin) 81 mg DAILY PO Last administered on 08/25/16 09:22; Admin Dose 81 MG; Start 08/24/16 at 09:00 Fenofibrate (Tricor) 48 mg DAILY PO Last administered on 08/25/16 09:24; Admin Dose 48 MG; Start 08/24/16 at 09:00 Lisinopril (Zestril) 10 mg DAILY PO Last administered on 08/25/16 09:24; Admin Dose 10 MG; Start 08/24/16 at 09:00 Carvedilol (Coreg) 6.25 mg BID PO Last administered on 08/25/16 20:20; Admin Dose 6.25 MG; Start 08/25/16 at 21:00 Furosemide (Lasix) 40 mg DAILY PO ; Start 08/26/16 at 09:00 Assessment/Plan Chief Complaint/Hosp Course PHYSICAL EXAMINATION: GENERAL: Not in acute distress, sitting on the edge of the bed. HEENT: Normocephalic, atraumatic head. Obese. NECK: Supple. No carotid bruit. LUNGS: Clear to auscultation bilaterally. CARDIAC: Normal cardiac rhythm and sounds. ABDOMEN: Soft, nontender. EXTREMITIES: No cyanosis, clubbing, or edema. NEUROLOGIC: He is lethargic, arousable becomes alert, and oriented x3 with fluent speech. Cranial nerve examination shows intact visual ugarte bilaterally. Pupils round, reactive from 3 to 2 mm bilaterally. Extraocular movements intact without nystagmus. Mildly asymmetrical face with left nasolabial fold flattening but normal facial sensation. Corneal reflexes present bilaterally as well as gag. Slight deviation of the tongue to the right upon protrusion. Motor strength examination shows about 3/5 strength in the left upper extremity, normal bulk and tone. Sensory examination intact to light touch and pain. Deep tendon reflexes 2+ throughout. Equivocal response to plantar stimulation on the left, downgoing on the right. Coordination examination shows normal [id number] testing on the right and some dysmetria, but no tremor on the left. Gait was not assessed. IMPRESSION: Acute ischemic stroke in a 30-year-old gentleman with amphetamine abuse as well as history of hypertension as well as smoking. I will continue aspirin for secondary stroke prevention. Lipitor. Keep patient euglycemic, normotensive. PT/OT possible rehab Problems: SAMARA STOUT MD Aug 25, 2016 20:34
--- NOTE | 2016-08-25 21:15 | PN ---
Date/Time of Note Date/Time of Note DATE: 08/25/16 TIME: 21:12 Assessment/Plan VTE Prophylaxis VTE Prophylaxis Intervention: SCD's Lines/Catheters IV Catheter Type (from Nrsg): Saline Lock Assessment/Plan Assessment/Plan - Acute right frontal lobe and motor cortex non hemorrhagic infarcts and punctate right occipital cortical infarct. Continue aspirin. Allow for permissive hypertension. Dr. Rice is following in neurology consultation. PT OT eval. - Severe cardiomyopathy with ejection fraction of 25%. Dr. Montelongo is asked to see patient in cardiology consultation. Continue Lasix, monitor electrolytes. - Amphetamine abuse. Continue gentle hydration. computing services director consult for rehabilitation services. - Tobacco dependence - provide smoking cessation - Hypokalemia, replace potassium.- no labs available today Further recommendations based on clinical course. Plan of care discussed with Dr. Liriano. Subjective 24 Hr Interval Summary Eyes: no complaints ENT: no complaints Respiratory: no complaints Cardiovascular: no complaints Gastrointestinal: no complaints Genitourinary: no complaints Musculoskeletal: no complaints Skin: no complaints Exam/Review of Systems Vital Signs Vitals Vital Signs Date Time Temp Pulse Resp B/P Pulse Ox O2 Delivery O2 Flow Rate FiO2 08/25/16 20:47 100 08/25/16 20:13 98.2 18 177/111 95 08/24/16 14:14 2.0 08/24/16 04:50 Nasal Cannula Intake and Output 08/24/16 08/24/16 08/25/16 15:00 23:00 07:00 Intake Total 950 ml Balance 950 ml Exam Constitutional: alert, oriented Psych: no complaints Eyes: EOMI, PERRL, nl sclera ENMT: nl external ears & nose Neck: non-tender Respiratory: clear to auscultation Cardiovascular: nl pulses Gastrointestinal: non-tender, soft Musculoskeletal: nl extremities to inspection Extremities: normal pulses Neurological: nl speech Lymph: nontender Results Result Diagram: 08/24/16 1230 08/24/16 1230 Results 24 hrs Laboratory Tests Test 08/25/16 06:21 Triglycerides Level 95 Cholesterol Level 120 LDL Cholesterol, Calculated 76 HDL Cholesterol 25 L Cholesterol/HDL Ratio 4.8 Medications Medications Current Medications Acetaminophen (Tylenol Tab) 650 mg Q6H PRN PO PAIN AND OR ELEVATED TEMP Last administered on 08/23/16t 20:11; Admin Dose 650 MG; Start 08/23/16 at 20:00 Atorvastatin Calcium (Lipitor) 40 mg HS PO Last administered on 08/25/16 20:20 ; Admin Dose 40 MG; Start 08/23/16 at 21:30 Aspirin (Aspirin) 81 mg DAILY PO Last administered on 08/25/16 09:22; Admin Dose 81 MG; Start 08/24/16 at 09:00 Fenofibrate (Tricor) 48 mg DAILY PO Last administered on 08/25/16 09:24; Admin Dose 48 MG; Start 08/24/16 at 09:00 Lisinopril (Zestril) 10 mg DAILY PO Last administered on 08/25/16 09:24; Admin Dose 10 MG; Start 08/24/16 at 09:00 Carvedilol (Coreg) 6.25 mg BID PO Last administered on 08/25/16 20:20; Admin Dose 6.25 MG; Start 08/25/16 at 21:00 Furosemide (Lasix) 40 mg DAILY PO ; Start 08/26/16 at 09:00 DARRICK ZULUAGA Aug 25, 2016 21:15
[2016-08-25 22:19] LABS: ADD SCAN DIFF NO
[2016-08-25 22:21] LABS: BASOPHIL # 0.1 10^3/ul (0.0-0.1); BASOPHILS % 0.5 % (0.0-2.0); EOSINOPHILS # 0.2 10^3/ul (0.0-0.5); EOSINOPHILS % 1.9 % (0.0-7.0); HEMATOCRIT 42.9 % (42.0-52.0); HEMOGLOBIN 13.2 g/dl (14.0-18.0); LYMPHOCYTES # 1.8 10^3/ul (0.8-2.9); LYMPHOCYTES % 17.1 % (15.0-51.0); MEAN CORPUSCULAR HEMOGLOBIN 25.8 pg (29.0-33.0); MEAN CORPUSCULAR HGB CONC 30.8 g/dl (32.0-37.0); MEAN CORPUSCULAR VOLUME 83.8 fl (82.0-101.0); MEAN PLATELET VOLUME 9.8 fl (7.4-10.4); MONOCYTE # 0.8 10^3/ul (0.3-0.9); MONOCYTES % 7.4 % (0.0-11.0); NEUTROPHIL # 7.5 10^3/ul (1.6-7.5); NEUTROPHILS % 72.5 % (39.0-77.0); PLATELET COUNT 456 10^3/UL (140-415); RED BLOOD COUNT 5.12 10^6/ul (4.70-6.10); RED CELL DISTRIBUTION WIDTH 13.5 % (11.5-14.5); WHITE BLOOD COUNT 10.3 10^3/ul (4.8-10.8)
[2016-08-25 22:38] LABS: POTASSIUM 3.6 mmol/L (3.5-5.1)
[2016-08-25 22:40] LABS: CREATININE 0.94 mg/dl (0.61-1.24)
[2016-08-25 22:41] LABS: CALCIUM 8.8 mg/dl (8.4-10.2)
[2016-08-26] VITALS (9 sets, daily range): BP systolic 160–182; BP diastolic 101–124; PULSE 80–103; RESP 20
[2016-08-26 07:45] LABS: ADD SCAN DIFF NO
[2016-08-26 07:55] LABS: BASOPHIL # 0.1 10^3/ul (0.0-0.1); BASOPHILS % 0.5 % (0.0-2.0); EOSINOPHILS # 0.3 10^3/ul (0.0-0.5); EOSINOPHILS % 2.1 % (0.0-7.0); HEMATOCRIT 40.5 % (42.0-52.0); HEMOGLOBIN 12.4 g/dl (14.0-18.0); LYMPHOCYTES # 2.5 10^3/ul (0.8-2.9); LYMPHOCYTES % 20.3 % (15.0-51.0); MEAN CORPUSCULAR HEMOGLOBIN 25.9 pg (29.0-33.0); MEAN CORPUSCULAR HGB CONC 30.6 g/dl (32.0-37.0); MEAN CORPUSCULAR VOLUME 84.7 fl (82.0-101.0); MEAN PLATELET VOLUME 9.7 fl (7.4-10.4); MONOCYTES % 7.9 % (0.0-11.0); NEUTROPHIL # 8.6 10^3/ul (1.6-7.5); NEUTROPHILS % 68.7 % (39.0-77.0); PLATELET COUNT 429 10^3/UL (140-415); RED BLOOD COUNT 4.78 10^6/ul (4.70-6.10); RED CELL DISTRIBUTION WIDTH 13.4 % (11.5-14.5); WHITE BLOOD COUNT 12.5 10^3/ul (4.8-10.8)
[2016-08-26 08:18] LABS: POTASSIUM 3.8 mmol/L (3.5-5.1)
[2016-08-26 08:21] LABS: CREATININE 0.97 mg/dl (0.61-1.24)
[2016-08-26 08:22] LABS: CALCIUM 8.8 mg/dl (8.4-10.2)
[2016-08-26] MEDS: ASPIRIN 81 MG TAB PO SCH (08:54)
[2016-08-26] MEDS: FUROSEMIDE 40 MG TAB PO SCH (08:56)
[2016-08-26] MEDS: FENOFIBRATE 48 MG TAB PO SCH (08:56)
[2016-08-26] MEDS: LISINOPRIL 10 MG TAB PO SCH (08:57)
[2016-08-26] MEDS ORDERED: POTASSIUM CHLORIDE (SR) 20 MEQ TAB PO STA (12:02)
--- NOTE | 2016-08-26 12:04 | CONS ---
Date/Time of Note Date/Time of Note DATE: 08/26/16 TIME: 12:03 Assessment/Plan Assessment/Plan Additional Assessment/Plan Acute CVA Acute decompensated systolic congestive heart failure, improving Severe cardiomyopathy Active crystal meth use Poor medication compliance -Patient with improvement in volume status. Continue p.o. diuretics, given elevated blood pressure, would increase dose of lisinopril. Supplement potassium to maintain above 4.0 and magnesium above 2.0. Consultation Date/Type/Reason Admit Date/Time Aug 23, 2016 at 16:48 Type of Consultation: cv 24 HR Interval Summary Free Text/Dictation Denies shortness of breath, chest pain or palpitation Exam/Review of Systems Vital Signs Vitals Vital Signs Date Time Temp Pulse Resp B/P Pulse Ox O2 Delivery O2 Flow Rate FiO2 08/26/16 09:54 2.0 08/26/16 08:20 98 08/26/16 04:46 98.2 20 182/124 98 08/24/16 04:50 Nasal Cannula Intake and Output 08/25/16 08/25/16 08/26/16 15:00 23:00 07:00 Intake Total 800 ml Balance 800 ml Exam Sleeping but arousable, no apparent distress Head: normocephalic Neck: supple Respiratory: other (Coarse breath sounds bilaterally, no wheezing) Cardiovascular: other (S1-S2 heard), regular rate and rhythm Gastrointestinal: bowel sounds, non-tender, other (No guarding), soft Extremities: edema (Trace), other (No cyanosis) Results Result Diagram: 08/26/16 0712 08/26/16 0717 Results 24 hrs Laboratory Tests Test 08/25/16 21:58 08/26/16 07:12 08/26/16 07:14 08/26/16 07:17 White Blood Count 10.3 12.5 #H Red Blood Count 5.12 4.78 Hemoglobin 13.2 L 12.4 L Hematocrit 42.9 40.5 L Mean Corpuscular Volume 83.8 84.7 Mean Corpuscular Hemoglobin 25.8 L 25.9 L Mean Corpuscular Hemoglobin Concent 30.8 L 30.6 L Red Cell Distribution Width 13.5 13.4 Platelet Count 456 H 429 H Mean Platelet Volume 9.8 9.7 Neutrophils % 72.5 68.7 Lymphocytes % 17.1 20.3 Monocytes % 7.4 7.9 Eosinophils % 1.9 2.1 Basophils % 0.5 0.5 Nucleated Red Blood Cells % 0.0 0.0 Neutrophils # 7.5 8.6 H Lymphocytes # 1.8 2.5 Monocytes # 0.8 1.0 H Eosinophils # 0.2 0.3 Basophils # 0.1 0.1 Nucleated Red Blood Cells # 0.0 0.0 Sodium Level 141 142 Potassium Level 3.6 3.8 Chloride Level 103 106 Carbon Dioxide Level 28 26 Anion Gap 14 14 Blood Urea Nitrogen 21 H 21 H Creatinine 0.94 0.97 Glucose Level 124 92 Calcium Level 8.8 8.8 Magnesium Level 1.5 L Medications Medications Current Medications Acetaminophen (Tylenol Tab) 650 mg Q6H PRN PO PAIN AND OR ELEVATED TEMP Last administered on 08/23/16 20:11; Admin Dose 650 MG; Start 08/23/16 at 20:00 Atorvastatin Calcium (Lipitor) 40 mg HS PO Last administered on 08/25/16 20:20 ; Admin Dose 40 MG; Start 08/23/16 at 21:30 Aspirin (Aspirin) 81 mg DAILY PO Last administered on 08/26/16 08:54; Admin Dose 81 MG; Start 08/24/16 at 09:00 Fenofibrate (Tricor) 48 mg DAILY PO Last administered on 08/26/16 08:56; Admin Dose 48 MG; Start 08/24/16 at 09:00 Lisinopril (Zestril) 10 mg DAILY PO Last administered on 08/26/16 08:57; Admin Dose 10 MG; Start 08/24/16 at 09:00 Carvedilol (Coreg) 6.25 mg BID PO Last administered on 08/26/16 08:56; Admin Dose 6.25 MG; Start 08/25/16 at 21:00 Furosemide (Lasix) 40 mg DAILY PO Last administered on 08/26/16 08:56; Admin Dose 40 MG; Start 08/26/16 at 09:00 Clonidine (Catapres) 0.1 mg Q6H PRN PO ELEVATED SYSTOLIC BP Last administered on 08/26/16 05:51; Admin Dose 0.1 MG; Start 08/26/16 at 05:30 Redd Montelongo DO Aug 26, 2016 12:04
[2016-08-26] MEDS ORDERED: MAGNESIUM SULFATE 3 GM in SOD CHLORIDE 0.9% 100 ML IVPB ONE (14:00)
--- NOTE | 2016-08-26 19:29 | PN ---
Date/Time of Note Date/Time of Note DATE: 08/26/16 TIME: 19:28 Assessment/Plan VTE Prophylaxis VTE Prophylaxis Intervention: SCD's Lines/Catheters [facility] Saline Lock Assessment/Plan Chief Complaint/Hosp Course Assessment/Plan - Acute right frontal lobe and motor cortex non hemorrhagic infarcts and punctate right occipital cortical infarct. Continue aspirin. Allow for permissive hypertension. Dr. Rice is following in neurology consultation. PT OT eval. - Severe cardiomyopathy with ejection fraction of 25%. Dr. Montelongo is following in cardiology consultation. Continue Lasix, monitor electrolytes. - Amphetamine abuse. Continue gentle hydration. financial services sales representative consult for rehabilitation services. - Tobacco dependence - Hypokalemia, replace potassium. Further recommendations based on clinical course. Plan of care discussed with Dr. Liriano. Problems: Exam/Review of Systems Vital Signs Vitals Vital Signs Date Time Temp Pulse Resp B/P Pulse Ox O2 Delivery O2 Flow Rate FiO2 08/26/16 16:43 80 08/26/16 09:54 2.0 08/26/16 04:46 98.2 20 182/124 98 08/24/16 04:50 Nasal Cannula Intake and Output 08/25/16 08/25/16 08/26/16 15:00 23:00 07:00 Intake Total 800 ml Balance 800 ml Exam Constitutional: alert, obese, well developed Psych: other (Lethargic but easily arousable) Head: atraumatic, normocephalic Eyes: nl conjunctiva ENMT: nl external ears & nose Neck: supple Respiratory: clear to auscultation, normal air movement Cardiovascular: nl pulses, regular rate and rhythm Gastrointestinal: non-tender, soft Musculoskeletal: nl extremities to inspection Extremities: normal pulses Neurological: 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-XII 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, other (Slurred speech, left upper extremity weakness.) Lymph: nl lymph nodes Results Result Diagram: 08/26/16 0712 08/26/16 0717 Results 24 hrs Laboratory Tests Test 08/25/16 21:58 08/26/16 07:12 08/26/16 07:14 08/26/16 07:17 White Blood Count 10.3 12.5 #H Red Blood Count 5.12 4.78 Hemoglobin 13.2 L 12.4 L Hematocrit 42.9 40.5 L Mean Corpuscular Volume 83.8 84.7 Mean Corpuscular Hemoglobin 25.8 L 25.9 L Mean Corpuscular Hemoglobin Concent 30.8 L 30.6 L Red Cell Distribution Width 13.5 13.4 Platelet Count 456 H 429 H Mean Platelet Volume 9.8 9.7 Neutrophils % 72.5 68.7 Lymphocytes % 17.1 20.3 Monocytes % 7.4 7.9 Eosinophils % 1.9 2.1 Basophils % 0.5 0.5 Nucleated Red Blood Cells % 0.0 0.0 Neutrophils # 7.5 8.6 H Lymphocytes # 1.8 2.5 Monocytes # 0.8 1.0 H Eosinophils # 0.2 0.3 Basophils # 0.1 0.1 Nucleated Red Blood Cells # 0.0 0.0 Sodium Level 141 142 Potassium Level 3.6 3.8 Chloride Level 103 106 Carbon Dioxide Level 28 26 Anion Gap 14 14 Blood Urea Nitrogen 21 H 21 H Creatinine 0.94 0.97 Glucose Level 124 92 Calcium Level 8.8 8.8 Magnesium Level 1.5 L Medications Medications Current Medications Acetaminophen (Tylenol Tab) 650 mg Q6H PRN PO PAIN AND OR ELEVATED TEMP Last administered on 08/23/16 20:11; Admin Dose 650 MG; Start 08/23/16 at 20:00 Atorvastatin Calcium (Lipitor) 40 mg HS PO Last administered on 08/25/16 20:20 ; Admin Dose 40 MG; Start 08/23/16 at 21:30 Aspirin (Aspirin) 81 mg DAILY PO Last administered on 08/26/16 08:54; Admin Dose 81 MG; Start 08/24/16 at 09:00 Fenofibrate (Tricor) 48 mg DAILY PO Last administered on 08/26/16 08:56; Admin Dose 48 MG; Start 08/24/16 at 09:00 Lisinopril (Zestril) 10 mg DAILY PO Last administered on 08/26/16 08:57; Admin Dose 10 MG; Start 08/24/16 at 09:00 Carvedilol (Coreg) 6.25 mg BID PO Last administered on 08/26/16 08:56; Admin Dose 6.25 MG; Start 08/25/16 at 21:00 Furosemide (Lasix) 40 mg DAILY PO Last administered on 08/26/16 08:56; Admin Dose 40 MG; Start 08/26/16 at 09:00 Clonidine (Catapres) 0.1 mg Q6H PRN PO ELEVATED SYSTOLIC BP Last administered on 08/26/16 05:51; Admin Dose 0.1 MG; Start 08/26/16 at 05:30 JEANNA MYERS Aug 26, 2016 19:29
[2016-08-26] MEDS: ATORVASTATIN 40 MG TAB PO SCH (21:45)
[2016-08-27] VITALS (9 sets, daily range): BP systolic 145–177; BP diastolic 98–117; PULSE 82–102; RESP 18–22
[2016-08-27 08:33] LABS: ADD SCAN DIFF NO
[2016-08-27] MEDS: FENOFIBRATE 48 MG TAB PO SCH (08:40)
[2016-08-27] MEDS: ASPIRIN 81 MG TAB PO SCH (08:40)
[2016-08-27] MEDS: FUROSEMIDE 40 MG TAB PO SCH (08:40)
[2016-08-27] MEDS: LISINOPRIL 10 MG TAB PO SCH (08:43)
[2016-08-27 08:52] LABS: BASOPHIL # 0.1 10^3/ul (0.0-0.1); BASOPHILS % 0.6 % (0.0-2.0); EOSINOPHILS # 0.3 10^3/ul (0.0-0.5); EOSINOPHILS % 2.6 % (0.0-7.0); HEMATOCRIT 42.4 % (42.0-52.0); LYMPHOCYTES # 2.4 10^3/ul (0.8-2.9); LYMPHOCYTES % 20.6 % (15.0-51.0); MEAN CORPUSCULAR HEMOGLOBIN 25.8 pg (29.0-33.0); MEAN CORPUSCULAR HGB CONC 30.7 g/dl (32.0-37.0); MEAN CORPUSCULAR VOLUME 84.1 fl (82.0-101.0); MEAN PLATELET VOLUME 9.7 fl (7.4-10.4); MONOCYTE # 0.7 10^3/ul (0.3-0.9); MONOCYTES % 5.9 % (0.0-11.0); NEUTROPHIL # 8.1 10^3/ul (1.6-7.5); NEUTROPHILS % 69.6 % (39.0-77.0); PLATELET COUNT 491 10^3/UL (140-415); RED BLOOD COUNT 5.04 10^6/ul (4.70-6.10); RED CELL DISTRIBUTION WIDTH 13.2 % (11.5-14.5); WHITE BLOOD COUNT 11.6 10^3/ul (4.8-10.8)
[2016-08-27 09:29] LABS: POTASSIUM 3.6 mmol/L (3.5-5.1)
[2016-08-27 09:31] LABS: CREATININE 0.91 mg/dl (0.61-1.24)
[2016-08-27 09:32] LABS: CALCIUM 8.4 mg/dl (8.4-10.2)
--- NOTE | 2016-08-27 11:11 | PN ---
Date/Time of Note Date/Time of Note DATE: 08/27/16 TIME: 11:11 Assessment/Plan VTE Prophylaxis VTE Prophylaxis Intervention: SCD's Lines/Catheters IV Catheter Type (from Nrsg): Saline Lock Assessment/Plan Assessment/Plan Acute CVA Acute decompensated systolic congestive heart failure, improving Severe cardiomyopathy Active crystal meth use Poor medication compliance -Patient with improvement in volume status. Continue lisinopril. Supplement potassium to maintain above 4.0 and magnesium above 2.0. Subjective 24 Hr Interval Summary Free Text/Dictation The patient with no change Exam/Review of Systems Vital Signs Vitals Vital Signs Date Time Temp Pulse Resp B/P Pulse Ox O2 Delivery O2 Flow Rate FiO2 08/27/16 08:00 98 08/27/16 04:00 98.0 20 156/99 96 Room Air 08/27/16 02:03 2.0 Intake and Output 08/26/16 08/26/16 08/27/16 15:00 23:00 07:00 Intake Total 1000 ml 300 ml Balance 1000 ml 300 ml Results Result Diagram: 08/27/16 0733 08/27/16 0733 Results 24 hrs Laboratory Tests Test 08/27/16 07:33 White Blood Count 11.6 H Red Blood Count 5.04 Hemoglobin 13.0 L Hematocrit 42.4 Mean Corpuscular Volume 84.1 Mean Corpuscular Hemoglobin 25.8 L Mean Corpuscular Hemoglobin Concent 30.7 L Red Cell Distribution Width 13.2 Platelet Count 491 H Mean Platelet Volume 9.7 Neutrophils % 69.6 Lymphocytes % 20.6 Monocytes % 5.9 Eosinophils % 2.6 Basophils % 0.6 Nucleated Red Blood Cells % 0.0 Neutrophils # 8.1 H Lymphocytes # 2.4 Monocytes # 0.7 Eosinophils # 0.3 Basophils # 0.1 Nucleated Red Blood Cells # 0.0 Sodium Level 140 Potassium Level 3.6 Chloride Level 105 Carbon Dioxide Level 24 Anion Gap 15 Blood Urea Nitrogen 16 Creatinine 0.91 Glucose Level 127 Calcium Level 8.4 Magnesium Level 1.8 Medications Medications Current Medications Acetaminophen (Tylenol Tab) 650 mg Q6H PRN PO PAIN AND OR ELEVATED TEMP Last administered on 08/23/16 20:11; Admin Dose 650 MG; Start 08/23/16 at 20:00 Atorvastatin Calcium (Lipitor) 40 mg HS PO Last administered on 08/26/16 21:45 ; Admin Dose 40 MG; Start 08/23/16 at 21:30 Aspirin (Aspirin) 81 mg DAILY PO Last administered on 08/27/16 08:40; Admin Dose 81 MG; Start 08/24/16 at 09:00 Fenofibrate (Tricor) 48 mg DAILY PO Last administered on 08/27/16 08:40; Admin Dose 48 MG; Start 08/24/16 at 09:00 Lisinopril (Zestril) 10 mg DAILY PO Last administered on 08/27/16 08:43; Admin Dose 10 MG; Start 08/24/16 at 09:00 Carvedilol (Coreg) 6.25 mg BID PO Last administered on 08/27/16 08:41; Admin Dose 6.25 MG; Start 08/25/16 at 21:00 Furosemide (Lasix) 40 mg DAILY PO Last administered on 08/27/16 08:40; Admin Dose 40 MG; Start 08/26/16 at 09:00 Clonidine (Catapres) 0.1 mg Q6H PRN PO ELEVATED SYSTOLIC BP Last administered on 08/26/16 05:51; Admin Dose 0.1 MG; Start 08/26/16 at 05:30 OTILIA LONDON MD Aug 27, 2016 11:11
--- NOTE | 2016-08-27 18:32 | PN ---
Date/Time of Note Date/Time of Note DATE: 08/27/16 TIME: 18:28 Assessment/Plan VTE Prophylaxis VTE Prophylaxis Intervention: other Lines/Catheters IV Catheter Type (from Nrsg): Saline Lock Assessment/Plan Assessment/Plan - Acute right frontal lobe and motor cortex non hemorrhagic infarcts and punctate right occipital cortical infarct. Continue aspirin. Allow for permissive hypertension. Dr. Rice is following in neurology consultation. PT OT eval. - Severe cardiomyopathy with ejection fraction of 25%. Dr. Montelongo is following in cardiology consultation. Continue Lasix, monitor electrolytes. - Amphetamine abuse. Continue gentle hydration. resident services coordinator consult for rehabilitation services. - Tobacco dependence - Hypokalemia, resolved Further recommendations based on clinical course. Plan of care discussed with Dr. Liriano. Subjective 24 Hr Interval Summary Free Text/Dictation NAD, no headaches, feels better. dw staff- had shower already even he was informed to wait for the MD order. No new issues reported. dw staff. Constitutional: improved Eyes: no complaints ENT: no complaints Respiratory: no complaints Cardiovascular: no complaints Gastrointestinal: no complaints Genitourinary: no complaints Musculoskeletal: no complaints Skin: no complaints Neurologic: no complaints Endocrine: no complaints Lymphatic: no complaints Psychological: no complaints Immunologic: no complaints Exam/Review of Systems Vital Signs Vitals Vital Signs Date Time Temp Pulse Resp B/P Pulse Ox O2 Delivery O2 Flow Rate FiO2 08/27/16 16:00 97.9 96 20 145/101 98 Room Air 08/27/16 02:03 2.0 Intake and Output 08/26/16 08/26/16 08/27/16 15:00 23:00 07:00 Intake Total 1000 ml 300 ml Balance 1000 ml 300 ml Results Result Diagram: 08/27/16 0733 08/27/16 0733 Results 24 hrs Laboratory Tests Test 08/27/16 07:33 White Blood Count 11.6 H Red Blood Count 5.04 Hemoglobin 13.0 L Hematocrit 42.4 Mean Corpuscular Volume 84.1 Mean Corpuscular Hemoglobin 25.8 L Mean Corpuscular Hemoglobin Concent 30.7 L Red Cell Distribution Width 13.2 Platelet Count 491 H Mean Platelet Volume 9.7 Neutrophils % 69.6 Lymphocytes % 20.6 Monocytes % 5.9 Eosinophils % 2.6 Basophils % 0.6 Nucleated Red Blood Cells % 0.0 Neutrophils # 8.1 H Lymphocytes # 2.4 Monocytes # 0.7 Eosinophils # 0.3 Basophils # 0.1 Nucleated Red Blood Cells # 0.0 Sodium Level 140 Potassium Level 3.6 Chloride Level 105 Carbon Dioxide Level 24 Anion Gap 15 Blood Urea Nitrogen 16 Creatinine 0.91 Glucose Level 127 Calcium Level 8.4 Magnesium Level 1.8 Medications Medications Current Medications Acetaminophen (Tylenol Tab) 650 mg Q6H PRN PO PAIN AND OR ELEVATED TEMP Last administered on 08/23/16 20:11; Admin Dose 650 MG; Start 08/23/16 at 20:00 Atorvastatin Calcium (Lipitor) 40 mg HS PO Last administered on 08/26/16 21:45 ; Admin Dose 40 MG; Start 08/23/16 at 21:30 Aspirin (Aspirin) 81 mg DAILY PO Last administered on 08/27/16 08:40; Admin Dose 81 MG; Start 08/24/16 at 09:00 Fenofibrate (Tricor) 48 mg DAILY PO Last administered on 08/27/16 08:40; Admin Dose 48 MG; Start 08/24/16 at 09:00 Lisinopril (Zestril) 10 mg DAILY PO Last administered on 08/27/16 08:43; Admin Dose 10 MG; Start 08/24/16 at 09:00 Carvedilol (Coreg) 6.25 mg BID PO Last administered on 08/27/16 08:41; Admin Dose 6.25 MG; Start 08/25/16 at 21:00 Furosemide (Lasix) 40 mg DAILY PO Last administered on 08/27/16 08:40; Admin Dose 40 MG; Start 08/26/16 at 09:00 Clonidine (Catapres) 0.1 mg Q6H PRN PO ELEVATED SYSTOLIC BP Last administered on 08/26/16 05:51; Admin Dose 0.1 MG; Start 08/26/16 at 05:30 DARRICK ZULUAGA Aug 27, 2016 18:32
[2016-08-27] MEDS: ATORVASTATIN 40 MG TAB PO SCH (20:29)
[2016-08-28] VITALS (11 sets, daily range): BP systolic 165–182; BP diastolic 107–132; PULSE 82–100; RESP 16–22
[2016-08-28] MEDS ORDERED: LORAZEPAM 1 MG TAB PO SCH (04:30)
[2016-08-28] MEDS: LORAZEPAM 1 MG TAB PO PRN ×2 (05:19→16:53)
[2016-08-28] MEDS: ASPIRIN 81 MG TAB PO SCH ×2 (05:56→09:00)
[2016-08-28 08:05] LABS: ADD SCAN DIFF NO
[2016-08-28 08:06] LABS: BASOPHIL # 0.1 10^3/ul (0.0-0.1); BASOPHILS % 0.6 % (0.0-2.0); EOSINOPHILS # 0.3 10^3/ul (0.0-0.5); EOSINOPHILS % 2.6 % (0.0-7.0); HEMATOCRIT 43.1 % (42.0-52.0); HEMOGLOBIN 13.1 g/dl (14.0-18.0); LYMPHOCYTES # 2.8 10^3/ul (0.8-2.9); LYMPHOCYTES % 24.3 % (15.0-51.0); MEAN CORPUSCULAR HEMOGLOBIN 25.6 pg (29.0-33.0); MEAN CORPUSCULAR HGB CONC 30.4 g/dl (32.0-37.0); MEAN CORPUSCULAR VOLUME 84.2 fl (82.0-101.0); MEAN PLATELET VOLUME 9.7 fl (7.4-10.4); MONOCYTE # 0.9 10^3/ul (0.3-0.9); MONOCYTES % 7.9 % (0.0-11.0); NEUTROPHIL # 7.5 10^3/ul (1.6-7.5); NEUTROPHILS % 63.9 % (39.0-77.0); PLATELET COUNT 458 10^3/UL (140-415); RED BLOOD COUNT 5.12 10^6/ul (4.70-6.10); RED CELL DISTRIBUTION WIDTH 13.3 % (11.5-14.5); WHITE BLOOD COUNT 11.7 10^3/ul (4.8-10.8)
[2016-08-28 08:31] LABS: POTASSIUM 3.6 mmol/L (3.5-5.1)
[2016-08-28 08:34] LABS: CREATININE 0.86 mg/dl (0.61-1.24)
[2016-08-28 08:35] LABS: CALCIUM 8.7 mg/dl (8.4-10.2)
[2016-08-28] MEDS: FENOFIBRATE 48 MG TAB PO SCH (08:59)
[2016-08-28] MEDS: FUROSEMIDE 40 MG TAB PO SCH (09:00)
[2016-08-28] MEDS: LISINOPRIL 10 MG TAB PO SCH (09:01)
--- NOTE | 2016-08-28 11:43 | PN ---
Date/Time of Note Date/Time of Note DATE: 08/28/16 TIME: 11:41 Assessment/Plan Lines/Catheters IV Catheter Type (from Nrs): Saline Lock Assessment/Plan Assessment/Plan - Acute right frontal lobe and motor cortex non hemorrhagic infarcts and punctate right occipital cortical infarct. Continue aspirin. Allow for permissive hypertension. Dr. Rice is following in neurology consultation. PT OT eval. - Severe cardiomyopathy with ejection fraction of 25%. Dr. Montelongo is following in cardiology consultation. Continue Lasix, monitor electrolytes. - Amphetamine abuse. Continue gentle hydration. construction services technician consult for rehabilitation services. - Tobacco dependence - Hypokalemia, resolved Further recommendations based on clinical course. Plan of care discussed with Dr. Liriano. Subjective 24 Hr Interval Summary Free Text/Dictation Sleeping, easily awakens, denies any FOSTER, anxiety. family at bed side- all Qs answered. Exam/Review of Systems Vital Signs Vitals Vital Signs Date Time Temp Pulse Resp B/P Pulse Ox O2 Delivery O2 Flow Rate FiO2 08/28/16 08:19 82 08/28/16 05:22 179/120 08/28/16 04:00 97.7 18 99 Room Air 08/27/16 02:03 2.0 Intake and Output 08/27/16 08/27/16 08/28/16 15:00 23:00 07:00 Intake Total 550 ml 900 ml Balance 550 ml 900 ml Exam Constitutional: alert, oriented, well developed Psych: nl mood/affect Eyes: EOMI ENMT: nl external ears & nose Neck: non-tender Respiratory: clear to auscultation Cardiovascular: nl pulses Gastrointestinal: non-tender, soft Musculoskeletal: nl extremities to inspection Neurological: nl mental status Skin: nl turgor Lymph: nontender Results Result Diagram: 08/28/16 0647 08/28/16 0641 Results 24 hrs Laboratory Tests Test 08/28/16 06:41 08/28/16 06:47 Sodium Level 140 Potassium Level 3.6 Chloride Level 105 Carbon Dioxide Level 25 Anion Gap 14 Blood Urea Nitrogen 20 Creatinine 0.86 Glucose Level 96 Calcium Level 8.7 White Blood Count 11.7 H Red Blood Count 5.12 Hemoglobin 13.1 L Hematocrit 43.1 Mean Corpuscular Volume 84.2 Mean Corpuscular Hemoglobin 25.6 L Mean Corpuscular Hemoglobin Concent 30.4 L Red Cell Distribution Width 13.3 Platelet Count 458 H Mean Platelet Volume 9.7 Neutrophils % 63.9 Lymphocytes % 24.3 Monocytes % 7.9 Eosinophils % 2.6 Basophils % 0.6 Nucleated Red Blood Cells % 0.0 Neutrophils # 7.5 Lymphocytes # 2.8 Monocytes # 0.9 Eosinophils # 0.3 Basophils # 0.1 Nucleated Red Blood Cells # 0.0 Medications Medications Current Medications Acetaminophen (Tylenol Tab) 650 mg Q6H PRN PO PAIN AND OR ELEVATED TEMP Last administered on 08/23/16 20:11; Admin Dose 650 MG; Start 08/23/16 at 20:00 Atorvastatin Calcium (Lipitor) 40 mg HS PO Last administered on 08/27/16 20:29 ; Admin Dose 40 MG; Start 08/23/16 at 21:30 Aspirin (Aspirin) 81 mg DAILY PO Last administered on 08/28/16 09:00; Admin Dose 81 MG; Start 08/24/16 at 09:00 Fenofibrate (Tricor) 48 mg DAILY PO Last administered on 08/28/16 08:59; Admin Dose 48 MG; Start 08/24/16 at 09:00 Lisinopril (Zestril) 10 mg DAILY PO Last administered on 08/28/16 09:01; Admin Dose 10 MG; Start 08/24/16 at 09:00 Carvedilol (Coreg) 6.25 mg BID PO Last administered on 08/28/16 09:00; Admin Dose 6.25 MG; Start 08/25/16 at 21:00 Furosemide (Lasix) 40 mg DAILY PO Last administered on 08/28/16 09:00; Admin Dose 40 MG; Start 08/26/16 at 09:00 Clonidine (Catapres) 0.1 mg Q6H PRN PO ELEVATED SYSTOLIC BP Last administered on 08/28/16 03:57; Admin Dose 0.1 MG; Start 08/26/16 at 05:30 Lorazepam (Ativan) 1 mg Q12 PRN PO ANXIETY Last administered on 08/28/16 05:19 ; Admin Dose 1 MG; Start 08/28/16 at 05:00 DARRICK ZULUAGA Aug 28, 2016 11:43
[2016-08-28 14:35] LABS: HAAIG REFLEX REFLEX FILED
--- NOTE | 2016-08-28 14:38 | CONS ---
Date/Time of Note Date/Time of Note DATE: 08/28/16 TIME: 14:30 Assessment/Plan Assessment/Plan Chief Complaint/Hosp Course assessment/impression - mild leukocytosis without fever, r/o occult infection - h/o crystal meth use, no IVDU per Pt - acute non-hemorrhagic CVA - decompensated CHF, severe cardiomyopathy. No valvular vegetation - smoker recommendations - blood cultures x2, urinalysis and urine culture, HIV and hepatitis screen, influenza screen, CXR two views - monitor Pt off empiric antibiotics while waiting for the lab results management d/w Pt and his RN, MELCHOR Bullock Problems: Consultation Date/Type/Reason Admit Date/Time Aug 23, 2016 at 16:48 Date of Consultation: Aug 28, 2016 Type of Consultation: ID Reason for Consultation leukocytosis Hx of Present Illness This is a 30 yo male with active crystal meth use, but not IVDU who presented c/ o slurred speech and numbness of L sided face. His brain imaging showed acute R frontal lobe and motor cortex non hemorrhagic infarcts and punctate right occipital cortical infarct. Pt was also found out to have decompensated systolic CHF and severe cardiomyopathy. During the last three days, Pt was found out to have mild leukocytosis. No abnormal temp has been documented during this admission. 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 Per Pt , he tested negative for hepatitis and HIV in the past. MELCHOR Bullock requested ID consultation on this Pt. Constitutional: improved Eyes: no complaints ENT: no complaints Respiratory: no complaints Cardiovascular: no complaints Gastrointestinal: no complaints Genitourinary: no complaints Musculoskeletal: no complaints Skin: no complaints Neurologic: focal-weakness (L sided face, speech) Endocrine: no complaints Lymphatic: no complaints Psychological: nl mood/affect Immunologic: no complaints Past Medical History Medical History: congestive heart failure, hypertension Past Surgical History Past Surgical Hx: no surgical history Social History Alcohol Use: occasionally Smoking Status: Current every day smoker Drug Use: other (crystal meth) Exam/Review of Systems Vital Signs Vitals Vital Signs Date Time Temp Pulse Resp B/P Pulse Ox O2 Delivery O2 Flow Rate FiO2 08/28/16 12:22 91 08/28/16 12:10 97.8 18 165/107 99 Room Air 08/27/16 02:03 2.0 Intake and Output 08/27/16 08/27/16 08/28/16 15:00 23:00 07:00 Intake Total 550 ml 900 ml Balance 550 ml 900 ml Exam Constitutional: alert, obese, oriented, well developed Psych: nl mood/affect, no complaints Head: atraumatic, normocephalic Eyes: nl conjunctiva, nl lids ENMT: nl external ears & nose, nl nasal mucosa & septum Neck: supple Respiratory: clear to auscultation, normal air movement Cardiovascular: nl pulses, regular rate and rhythm Gastrointestinal: nl liver, spleen, non-tender, soft Genitourinary - Male: No CVA tenderness Musculoskeletal: nl extremities to inspection, nl gait and stance Extremities: normal pulses Neurological: focal weakness (slurred speech, L ptosis) Skin: No rash or lesions Results Result Diagram: 08/28/16 0647 08/28/16 0641 Results 24 hrs Laboratory Tests Test 08/28/16 06:41 08/28/16 06:47 Sodium Level 140 Potassium Level 3.6 Chloride Level 105 Carbon Dioxide Level 25 Anion Gap 14 Blood Urea Nitrogen 20 Creatinine 0.86 Glucose Level 96 Calcium Level 8.7 White Blood Count 11.7 H Red Blood Count 5.12 Hemoglobin 13.1 L Hematocrit 43.1 Mean Corpuscular Volume 84.2 Mean Corpuscular Hemoglobin 25.6 L Mean Corpuscular Hemoglobin Concent 30.4 L Red Cell Distribution Width 13.3 Platelet Count 458 H Mean Platelet Volume 9.7 Neutrophils % 63.9 Lymphocytes % 24.3 Monocytes % 7.9 Eosinophils % 2.6 Basophils % 0.6 Nucleated Red Blood Cells % 0.0 Neutrophils # 7.5 Lymphocytes # 2.8 Monocytes # 0.9 Eosinophils # 0.3 Basophils # 0.1 Nucleated Red Blood Cells # 0.0 Medications Medications Current Medications Acetaminophen (Tylenol Tab) 650 mg Q6H PRN PO PAIN AND OR ELEVATED TEMP Last administered on 08/23/16 20:11; Admin Dose 650 MG; Start 08/23/16 at 20:00 Atorvastatin Calcium (Lipitor) 40 mg HS PO Last administered on 08/27/16 20:29 ; Admin Dose 40 MG; Start 08/23/16 at 21:30 Aspirin (Aspirin) 81 mg DAILY PO Last administered on 08/28/16 09:00; Admin Dose 81 MG; Start 08/24/16 at 09:00 Fenofibrate (Tricor) 48 mg DAILY PO Last administered on 08/28/16 08:59; Admin Dose 48 MG; Start 08/24/16 at 09:00 Lisinopril (Zestril) 10 mg DAILY PO Last administered on 08/28/16 09:01; Admin Dose 10 MG; Start 08/24/16 at 09:00 Carvedilol (Coreg) 6.25 mg BID PO Last administered on 08/28/16 09:00; Admin Dose 6.25 MG; Start 08/25/16 at 21:00 Furosemide (Lasix) 40 mg DAILY PO Last administered on 08/28/16 09:00; Admin Dose 40 MG; Start 08/26/16 at 09:00 Clonidine (Catapres) 0.1 mg Q6H PRN PO ELEVATED SYSTOLIC BP Last administered on 08/28/16 03:57; Admin Dose 0.1 MG; Start 08/26/16 at 05:30 Lorazepam (Ativan) 1 mg Q12 PRN PO ANXIETY Last administered on 08/28/16 05:19 ; Admin Dose 1 MG; Start 08/28/16 at 05:00 FANY CHEUNG M.D. Aug 28, 2016 14:38
[2016-08-28 15:34] LABS: HEPATITIS B CORE ANTIBODY NEGATIVE (NEGATIVE)
[2016-08-28 15:51] LABS: ADD UMIC YES; URINE BILIRUBIN (Dip) NEGATIVE (NEGATIVE); URINE BLOOD (Dip) NEGATIVE (NEGATIVE); URINE COLOR LT. YELLOW (YELLOW); URINE GLUCOSE (Dip) NEGATIVE (NEGATIVE); URINE KETONES (Dip) NEGATIVE (NEGATIVE); URINE LEUKOCYTE ESTERASE (Dip) 1+ (NEGATIVE); URINE NITRITE (Dip) NEGATIVE (NEGATIVE); URINE TOTAL PROTEIN (Dip) NEGATIVE (NEGATIVE); URINE UROBILINOGEN (Dip) 1.0 E.U./dL (0.1-1.0)
[2016-08-28 16:02] LABS: TRANSITIONAL EPI CELLS,URINE MODERATE; URINE RBCS NONE SEEN /HPF (0)
[2016-08-28 16:03] LABS: BACTERIA,URINE FEW
[2016-08-28] MEDS: ATORVASTATIN 40 MG TAB PO SCH (20:32)
--- NOTE | 2016-08-28 21:08 | RADRPT ---
PROCEDURE: XR Chest. CLINICAL INDICATION: Infiltrate TECHNIQUE: PA and lateral chest x-ray. COMPARISON: 08/23/2016 FINDINGS: There is no focal consolidation, pleural effusion or pneumothorax. The aorta is within normal limit s. The cardiac silhouette is enlarged. The osseous structures are intact. IMPRESSION: 1. No acute infiltrate. 2. Enlarged cardiac silhouette. RPTAT: QQ .Ángel Montenegro MD, MD Date Time Electronically viewed and signed by .Ángel Montenegro MD, MD on 08/28/2016 21:08 .d/
[2016-08-29] VITALS (12 sets, daily range): BP systolic 136–171; BP diastolic 89–96; PULSE 83–100; RESP 16–20
[2016-08-29] MEDS: LORAZEPAM 1 MG TAB PO PRN ×2 (05:08→18:51)
--- NOTE | 2016-08-29 08:56 | CONS ---
Date/Time of Note Date/Time of Note DATE: 08/29/16 TIME: 08:55 Assessment/Plan Assessment/Plan Chief Complaint/Hosp Course assessment/impression - mild leukocytosis, possibly due to UTI - possible UTI based on pyuria although Pt denies UTI symptoms - h/o crystal meth use, no IVDU per Pt - acute non-hemorrhagic CVA - decompensated CHF, severe cardiomyopathy. No valvular vegetation - smoker recommendations - I will review the results of: blood cultures x2, urine culture (HIV and hepatitis screen negative) - if urine culture grows, will initiate an antibiotic. management d/w Pt Problems: Consultation Date/Type/Reason Admit Date/Time Aug 23, 2016 at 16:48 Initial Consult Date 08/28/16 Type of Consultation: ID 24 HR Interval Summary Constitutional: no complaints Detailed Summary Eyes: no complaints ENT: no complaints Respiratory: no complaints Cardiovascular: no complaints Gastrointestinal: no complaints Genitourinary: no complaints Musculoskeletal: no complaints Skin: no complaints Exam/Review of Systems Vital Signs Vitals Vital Signs Date Time Temp Pulse Resp B/P Pulse Ox O2 Delivery O2 Flow Rate FiO2 08/29/16 08:26 84 08/29/16 05:10 98.0 16 136/92 98 08/29/16 01:10 Room Air 08/27/16 02:03 2.0 Intake and Output 08/28/16 08/28/16 08/29/16 15:00 23:00 07:00 Intake Total 300 ml 600 ml Balance 300 ml 600 ml Exam Constitutional: alert, oriented, well developed Psych: other (very drowsy today) Eyes: nl conjunctiva, other (L ptosis) Neck: supple Respiratory: clear to auscultation, normal air movement Cardiovascular: nl pulses, regular rate and rhythm Gastrointestinal: non-tender, soft Musculoskeletal: nl extremities to inspection Results Result Diagram: 08/28/16 0647 08/28/16 0641 Results 24 hrs Laboratory Tests Test 08/28/16 15:40 Urine Color LT. YELLOW Urine Clarity HAZY Urine pH 7.5 Urine Specific [place] 1.010 Urine Ketones NEGATIVE Urine Nitrite NEGATIVE Urine Bilirubin NEGATIVE Urine Urobilinogen 1.0 E.U./dL Urine Leukocyte Esterase 1+ H Urine Microscopic RBC NONE SEEN Urine Microscopic WBC >50 Urine Transitional Epithelial Cells MODERATE Urine Bacteria FEW Urine Hemoglobin NEGATIVE Urine Glucose NEGATIVE Urine Total Protein NEGATIVE Medications Medications Current Medications Acetaminophen (Tylenol Tab) 650 mg Q6H PRN PO PAIN AND OR ELEVATED TEMP Last administered on 08/23/16 20:11; Admin Dose 650 MG; Start 08/23/16 at 20:00 Atorvastatin Calcium (Lipitor) 40 mg HS PO Last administered on 08/28/16 20:32 ; Admin Dose 40 MG; Start 08/23/16 at 21:30 Aspirin (Aspirin) 81 mg DAILY PO Last administered on 08/28/16 09:00; Admin Dose 81 MG; Start 08/24/16 at 09:00 Fenofibrate (Tricor) 48 mg DAILY PO Last administered on 08/28/16 08:59; Admin Dose 48 MG; Start 08/24/16 at 09:00 Lisinopril (Zestril) 10 mg DAILY PO Last administered on 08/28/16 09:01; Admin Dose 10 MG; Start 08/24/16 at 09:00 Carvedilol (Coreg) 6.25 mg BID PO Last administered on 08/28/16 20:32; Admin Dose 6.25 MG; Start 08/25/16 at 21:00 Furosemide (Lasix) 40 mg DAILY PO Last administered on 08/28/16 09:00; Admin Dose 40 MG; Start 08/26/16 at 09:00 Clonidine (Catapres) 0.1 mg Q6H PRN PO ELEVATED SYSTOLIC BP Last administered on 08/29/16 01:14; Admin Dose 0.1 MG; Start 08/26/16 at 05:30 Lorazepam (Ativan) 1 mg Q12 PRN PO ANXIETY Last administered on 08/29/16 05:08 ; Admin Dose 1 MG; Start 08/28/16 at 05:00 FANY CHEUNG M.D. Aug 29, 2016 08:56
[2016-08-29] MEDS: FENOFIBRATE 48 MG TAB PO SCH (09:27)
[2016-08-29] MEDS: ASPIRIN 81 MG TAB PO SCH (09:27)
[2016-08-29] MEDS: LISINOPRIL 10 MG TAB PO SCH ×2 (09:27→21:29)
[2016-08-29] MEDS: FUROSEMIDE 40 MG TAB PO SCH (09:28)
[2016-08-29] MEDS ORDERED: POTASSIUM CHLORIDE (SR) 20 MEQ TAB PO STA (11:32)
--- NOTE | 2016-08-29 11:36 | CONS ---
Date/Time of Note Date/Time of Note DATE: 08/29/16 TIME: 11:33 Assessment/Plan Assessment/Plan Additional Assessment/Plan Acute CVA Acute decompensated systolic congestive heart failure, improving Severe cardiomyopathy Active crystal meth use Poor medication compliance -Patient with improvement in volume status and less shortness of breath. Would decrease Lasix to 20 mg daily. Would increase dose of lisinopril secondary to elevated blood pressure. Supplement potassium. DC planning. Consultation Date/Type/Reason Admit Date/Time Aug 23, 2016 at 16:48 Type of Consultation: cv 24 HR Interval Summary Free Text/Dictation Shortness of breath is much better. Denies chest pain, dizziness or palpitations Exam/Review of Systems Vital Signs Vitals Vital Signs Date Time Temp Pulse Resp B/P Pulse Ox O2 Delivery O2 Flow Rate FiO2 08/29/16 09:25 98.0 83 17 171/93 98 Room Air 08/27/16 02:03 2.0 Intake and Output 08/28/16 08/28/16 08/29/16 15:00 23:00 07:00 Intake Total 300 ml 600 ml Balance 300 ml 600 ml Exam Sleeping but arousable, follows commands, no apparent distress Head: normocephalic Neck: supple Respiratory: other (Coarse breath sounds bilaterally, no wheezing) Cardiovascular: other (S1-S2 heard), regular rate and rhythm Gastrointestinal: bowel sounds, non-tender, other, soft Extremities: edema (Trace), other (No cyanosis) Results Result Diagram: 08/28/16 0647 08/28/16 0641 Results 24 hrs Laboratory Tests Test 08/28/16 15:40 Urine Color LT. YELLOW Urine Clarity HAZY Urine pH 7.5 Urine Specific [place] 1.010 Urine Ketones NEGATIVE Urine Nitrite NEGATIVE Urine Bilirubin NEGATIVE Urine Urobilinogen 1.0 E.U./dL Urine Leukocyte Esterase 1+ H Urine Microscopic RBC NONE SEEN Urine Microscopic WBC >50 Urine Transitional Epithelial Cells MODERATE Urine Bacteria FEW Urine Hemoglobin NEGATIVE Urine Glucose NEGATIVE Urine Total Protein NEGATIVE Medications Medications Current Medications Acetaminophen (Tylenol Tab) 650 mg Q6H PRN PO PAIN AND OR ELEVATED TEMP Last administered on 08/23/16 20:11; Admin Dose 650 MG; Start 08/23/16 at 20:00 Atorvastatin Calcium (Lipitor) 40 mg HS PO Last administered on 08/28/16 20:32 ; Admin Dose 40 MG; Start 08/23/16 at 21:30 Aspirin (Aspirin) 81 mg DAILY PO Last administered on 08/29/16 09:27; Admin Dose 81 MG; Start 08/24/16 at 09:00 Fenofibrate (Tricor) 48 mg DAILY PO Last administered on 08/29/16 09:27; Admin Dose 48 MG; Start 08/24/16 at 09:00 Lisinopril (Zestril) 10 mg DAILY PO Last administered on 08/29/16 09:27; Admin Dose 10 MG; Start 08/24/16 at 09:00 Carvedilol (Coreg) 6.25 mg BID PO Last administered on 08/29/16 09:28; Admin Dose 6.25 MG; Start 08/25/16 at 21:00 Furosemide (Lasix) 40 mg DAILY PO Last administered on 08/29/16 09:28; Admin Dose 40 MG; Start 08/26/16 at 09:00 Clonidine (Catapres) 0.1 mg Q6H PRN PO ELEVATED SYSTOLIC BP Last administered on 08/29/16 01:14; Admin Dose 0.1 MG; Start 08/26/16 at 05:30 Lorazepam (Ativan) 1 mg Q12 PRN PO ANXIETY Last administered on 08/29/16 05:08 ; Admin Dose 1 MG; Start 08/28/16 at 05:00 Redd Montelongo DO Aug 29, 2016 11:35
--- NOTE | 2016-08-29 19:46 | PN ---
Date/Time of Note Date/Time of Note DATE: 08/29/16 TIME: 19:42 Assessment/Plan VTE Prophylaxis VTE Prophylaxis Intervention: SCD's Lines/Catheters [facility] Saline Lock Assessment/Plan Chief Complaint/Hosp Course Assessment/Plan - Acute right frontal lobe and motor cortex non hemorrhagic infarcts and punctate right occipital cortical infarct. Continue aspirin. Dr. Rice is following in neurology consultation. Continue PT, OT. - Severe cardiomyopathy with ejection fraction of 25%. Dr. Montelongo is following in cardiology consultation. Continue Lasix, monitor electrolytes. -Hypertension, continue lisinopril. - Amphetamine abuse. Continue gentle hydration. rn support services consult for rehabilitation services. - Tobacco dependence Acute rehab eval. Further recommendations based on clinical course. Plan of care discussed with Dr. Liriano. Problems: Subjective 24 Hr Interval Summary Free Text/Dictation Patient remains afebrile denies dysuria, sinus rhythm on telemetry, was episode of elevated blood pressure. Exam/Review of Systems Vital Signs Vitals Vital Signs Date Time Temp Pulse Resp B/P Pulse Ox O2 Delivery O2 Flow Rate FiO2 08/29/16 16:26 98.2 92 19 151/96 100 Room Air 08/27/16 02:03 2.0 Intake and Output 08/28/16 08/28/16 08/29/16 14:59 22:59 06:59 Intake Total 300 ml 600 ml Balance 300 ml 600 ml Exam Constitutional: alert, obese, well developed Psych: other (Lethargic but easily arousable) Head: atraumatic, normocephalic Eyes: nl conjunctiva ENMT: nl external ears & nose Neck: supple Respiratory: clear to auscultation, normal air movement Cardiovascular: nl pulses, regular rate and rhythm Gastrointestinal: non-tender, soft Musculoskeletal: nl extremities to inspection Extremities: normal pulses Neurological: DYE TUB OPERATOR II-XII intact, other (Slurred speech, left upper extremity weakness.) Lymph: nl lymph nodes Results Result Diagram: 08/28/16 0647 08/28/16 0641 Medications Medications Current Medications Acetaminophen (Tylenol Tab) 650 mg Q6H PRN PO PAIN AND OR ELEVATED TEMP Last administered on 08/23/16t 20:11; Admin Dose 650 MG; Start 08/23/16 at 20:00 Atorvastatin Calcium (Lipitor) 40 mg HS PO Last administered on 08/28/16 20:32 ; Admin Dose 40 MG; Start 08/23/16 at 21:30 Aspirin (Aspirin) 81 mg DAILY PO Last administered on 08/29/16 09:27; Admin Dose 81 MG; Start 08/24/16 at 09:00 Fenofibrate (Tricor) 48 mg DAILY PO Last administered on 08/29/16 09:27; Admin Dose 48 MG; Start 08/24/16 at 09:00 Carvedilol (Coreg) 6.25 mg BID PO Last administered on 08/29/16 09:28; Admin Dose 6.25 MG; Start 08/25/16 at 21:00 Clonidine (Catapres) 0.1 mg Q6H PRN PO ELEVATED SYSTOLIC BP Last administered on 08/29/16 01:14; Admin Dose 0.1 MG; Start 08/26/16 at 05:30 Lorazepam (Ativan) 1 mg Q12 PRN PO ANXIETY Last administered on 08/29/16 18:51 ; Admin Dose 1 MG; Start 08/28/16 at 05:00 Lisinopril (Zestril) 10 mg BID PO ; Start 08/29/16 at 21:00 Furosemide (Lasix) 20 mg DAILY PO ; Start 08/30/16 at 09:00 JEANNA MYERS Aug 29, 2016 19:46
[2016-08-29] MEDS: ATORVASTATIN 40 MG TAB PO SCH (21:29)
[2016-08-30] VITALS (13 sets, daily range): BP systolic 144–170; BP diastolic 68–109; PULSE 83–100; RESP 16–20
[2016-08-30] MEDS: LORAZEPAM 1 MG TAB PO PRN ×2 (06:34→21:09)
[2016-08-30 07:43] LABS: ADD SCAN DIFF NO
[2016-08-30 07:53] LABS: BASOPHIL # 0.1 10^3/ul (0.0-0.1); BASOPHILS % 0.7 % (0.0-2.0); EOSINOPHILS # 0.3 10^3/ul (0.0-0.5); EOSINOPHILS % 2.5 % (0.0-7.0); HEMATOCRIT 45.6 % (42.0-52.0); LYMPHOCYTES # 2.7 10^3/ul (0.8-2.9); LYMPHOCYTES % 21.6 % (15.0-51.0); MEAN CORPUSCULAR HEMOGLOBIN 25.7 pg (29.0-33.0); MEAN CORPUSCULAR HGB CONC 30.7 g/dl (32.0-37.0); MEAN CORPUSCULAR VOLUME 83.8 fl (82.0-101.0); MEAN PLATELET VOLUME 9.6 fl (7.4-10.4); MONOCYTE # 0.8 10^3/ul (0.3-0.9); MONOCYTES % 6.7 % (0.0-11.0); NEUTROPHIL # 8.6 10^3/ul (1.6-7.5); NEUTROPHILS % 67.9 % (39.0-77.0); PLATELET COUNT 529 10^3/UL (140-415); RED BLOOD COUNT 5.44 10^6/ul (4.70-6.10); RED CELL DISTRIBUTION WIDTH 13.2 % (11.5-14.5); WHITE BLOOD COUNT 12.6 10^3/ul (4.8-10.8)
[2016-08-30 08:17] LABS: POTASSIUM 4.1 mmol/L (3.5-5.1)
[2016-08-30 08:19] LABS: CREATININE 0.92 mg/dl (0.61-1.24)
[2016-08-30 08:20] LABS: CALCIUM 8.8 mg/dl (8.4-10.2)
--- NOTE | 2016-08-30 09:01 | CONS ---
Date/Time of Note Date/Time of Note DATE: 08/30/16 TIME: 09:01 Assessment/Plan Assessment/Plan Chief Complaint/Hosp Course assessment/impression - mild leukocytosis of unclear etiology - pyuria but Pt has no UTI Sx - h/o crystal meth use, no IVDU per Pt - acute non-hemorrhagic CVA - decompensated CHF, severe cardiomyopathy. No valvular vegetation - smoker - drinker recommendations - if his WBC level continues to increase, I plan to order CT - I recommend psych consult re. possible alcohol withdrawal management d/w Pt, speech therapist Problems: Consultation Date/Type/Reason Admit Date/Time Aug 23, 2016 at 16:48 Initial Consult Date 08/28/16 Type of Consultation: ID 24 HR Interval Summary Constitutional: no complaints Detailed Summary Eyes: no complaints ENT: no complaints Respiratory: no complaints Cardiovascular: no complaints Gastrointestinal: no complaints Genitourinary: no complaints Musculoskeletal: no complaints Skin: no complaints Neurologic: no complaints Psychological: other (wants to drink) Exam/Review of Systems Vital Signs Vitals Vital Signs Date Time Temp Pulse Resp B/P Pulse Ox O2 Delivery O2 Flow Rate FiO2 08/30/16 08:51 94 08/30/16 08:16 98.1 18 170/105 97 08/30/16 01:00 Room Air 08/29/16 23:59 21 08/27/16 02:03 2.0 Intake and Output 08/29/16 08/29/16 08/30/16 15:00 23:00 07:00 Intake Total 750 ml 800 ml Balance 750 ml 800 ml Exam Constitutional: alert, oriented, well developed Psych: nl mood/affect, no complaints Head: other (L facial droop) Eyes: other (L ptosis) ENMT: nl external ears & nose Neck: non-tender, supple Respiratory: clear to auscultation, normal air movement Cardiovascular: nl pulses, regular rate and rhythm Gastrointestinal: non-tender, soft Musculoskeletal: nl extremities to inspection Extremities: normal pulses Neurological: JAVA ENTERPRISE ARCHITECT II-XII intact, nl mental status, nl speech Skin: nl turgor Results Result Diagram: 08/30/1662708/30/16627 Results 24 hrs Laboratory Tests Test 08/30/16 06:28 White Blood Count 12.6 H Red Blood Count 5.44 Hemoglobin 14.0 Hematocrit 45.6 Mean Corpuscular Volume 83.8 Mean Corpuscular Hemoglobin 25.7 L Mean Corpuscular Hemoglobin Concent 30.7 L Red Cell Distribution Width 13.2 Platelet Count 529 H Mean Platelet Volume 9.6 Neutrophils % 67.9 Lymphocytes % 21.6 Monocytes % 6.7 Eosinophils % 2.5 Basophils % 0.7 Nucleated Red Blood Cells % 0.0 Neutrophils # 8.6 H Lymphocytes # 2.7 Monocytes # 0.8 Eosinophils # 0.3 Basophils # 0.1 Nucleated Red Blood Cells # 0.0 Sodium Level 137 Potassium Level 4.1 Chloride Level 104 Carbon Dioxide Level 25 Anion Gap 12 Blood Urea Nitrogen 16 Creatinine 0.92 Glucose Level 91 Calcium Level 8.8 Medications Medications Current Medications Acetaminophen (Tylenol Tab) 650 mg Q6H PRN PO PAIN AND OR ELEVATED TEMP Last administered on 08/23/16 20:11; Admin Dose 650 MG; Start 08/23/16 at 20:00 Atorvastatin Calcium (Lipitor) 40 mg HS PO Last administered on 08/29/16 21:29 ; Admin Dose 40 MG; Start 08/23/16 at 21:30 Aspirin (Aspirin) 81 mg DAILY PO Last administered on 08/29/16 09:27; Admin Dose 81 MG; Start 08/24/16 at 09:00 Fenofibrate (Tricor) 48 mg DAILY PO Last administered on 08/29/16 09:27; Admin Dose 48 MG; Start 08/24/16 at 09:00 Carvedilol (Coreg) 6.25 mg BID PO Last administered on 08/29/16 21:30; Admin Dose 6.25 MG; Start 08/25/16 at 21:00 Clonidine (Catapres) 0.1 mg Q6H PRN PO ELEVATED SYSTOLIC BP Last administered on 08/29/16 01:14; Admin Dose 0.1 MG; Start 08/26/16 at 05:30 Lorazepam (Ativan) 1 mg Q12 PRN PO ANXIETY Last administered on 08/30/16 06:34 ; Admin Dose 1 MG; Start 08/28/16 at 05:00 Lisinopril (Zestril) 10 mg BID PO Last administered on 08/29/16 21:29; Admin Dose 10 MG; Start 08/29/16 at 21:00 Furosemide (Lasix) 20 mg DAILY PO ; Start 08/30/16 at 09:00 FANY CHEUNG M.D. Aug 30, 2016 09:01
[2016-08-30] MEDS: FENOFIBRATE 48 MG TAB PO SCH (09:02)
[2016-08-30] MEDS: FUROSEMIDE 20 MG TAB PO SCH (09:02)
[2016-08-30] MEDS: ASPIRIN 81 MG TAB PO SCH (09:02)
[2016-08-30] MEDS: LISINOPRIL 10 MG TAB PO SCH ×2 (09:03→21:10)
--- NOTE | 2016-08-30 16:41 | PN ---
Date/Time of Note Date/Time of Note DATE: 08/30/16 TIME: 16:39 Assessment/Plan VTE Prophylaxis VTE Prophylaxis Intervention: SCD's Lines/Catheters [facility] Saline Lock Assessment/Plan Chief Complaint/Hosp Course Assessment/Plan - Acute right frontal lobe and motor cortex non hemorrhagic infarcts and punctate right occipital cortical infarct. Continue aspirin. Dr. Rice is following in neurology consultation. Continue PT, OT. - Severe cardiomyopathy with ejection fraction of 25%. Dr. Montelongo is following in cardiology consultation. Continue Lasix, monitor electrolytes. -Hypertension, continue lisinopril. - Amphetamine abuse. Continue gentle hydration. caseworker protective services consult for rehabilitation services. - Tobacco dependence Acute rehab eval. Further recommendations based on clinical course. Plan of care discussed with Dr. Lirinao. Problems: Subjective 24 Hr Interval Summary Free Text/Dictation Patient is awake alert, with episode of elevated blood pressure in a.m., denies nausea vomiting. Exam/Review of Systems Vital Signs Vitals Vital Signs Date Time Temp Pulse Resp B/P Pulse Ox O2 Delivery O2 Flow Rate FiO2 08/30/16 16:37 97.9 84 18 155/88 100 08/30/16 01:00 Room Air 08/29/16 23:59 21 08/27/16 02:03 2.0 Intake and Output 08/29/16 08/29/16 08/30/16 15:00 23:00 07:00 Intake Total 750 ml 800 ml Balance 750 ml 800 ml Exam Constitutional: alert, obese, well developed Psych: other (Lethargic but easily arousable) Head: atraumatic, normocephalic Eyes: nl conjunctiva ENMT: nl external ears & nose Neck: supple Respiratory: clear to auscultation, normal air movement Cardiovascular: nl pulses, regular rate and rhythm Gastrointestinal: non-tender, soft Musculoskeletal: nl extremities to inspection Extremities: normal pulses Neurological: MOTO MIX OPERATOR II-XII intact, other (Slurred speech, left upper extremity weakness.) Lymph: nl lymph nodes Results Result Diagram: 08/30/1628 08/30/16 0628 Results 24 hrs Laboratory Tests Test 08/30/16 06:28 White Blood Count 12.6 H Red Blood Count 5.44 Hemoglobin 14.0 Hematocrit 45.6 Mean Corpuscular Volume 83.8 Mean Corpuscular Hemoglobin 25.7 L Mean Corpuscular Hemoglobin Concent 30.7 L Red Cell Distribution Width 13.2 Platelet Count 529 H Mean Platelet Volume 9.6 Neutrophils % 67.9 Lymphocytes % 21.6 Monocytes % 6.7 Eosinophils % 2.5 Basophils % 0.7 Nucleated Red Blood Cells % 0.0 Neutrophils # 8.6 H Lymphocytes # 2.7 Monocytes # 0.8 Eosinophils # 0.3 Basophils # 0.1 Nucleated Red Blood Cells # 0.0 Sodium Level 137 Potassium Level 4.1 Chloride Level 104 Carbon Dioxide Level 25 Anion Gap 12 Blood Urea Nitrogen 16 Creatinine 0.92 Glucose Level 91 Calcium Level 8.8 Medications Medications Current Medications Acetaminophen (Tylenol Tab) 650 mg Q6H PRN PO PAIN AND OR ELEVATED TEMP Last administered on 08/23/16 20:11; Admin Dose 650 MG; Start 08/23/16 at 20:00 Atorvastatin Calcium (Lipitor) 40 mg HS PO Last administered on 08/29/16 21:29 ; Admin Dose 40 MG; Start 08/23/16 at 21:30 Aspirin (Aspirin) 81 mg DAILY PO Last administered on 08/30/16 09:02; Admin Dose 81 MG; Start 08/24/16 at 09:00 Fenofibrate (Tricor) 48 mg DAILY PO Last administered on 08/30/16 09:02; Admin Dose 48 MG; Start 08/24/16 at 09:00 Carvedilol (Coreg) 6.25 mg BID PO Last administered on 08/30/16 09:03; Admin Dose 6.25 MG; Start 08/25/16 at 21:00 Clonidine (Catapres) 0.1 mg Q6H PRN PO ELEVATED SYSTOLIC BP Last administered on 08/29/16 01:14; Admin Dose 0.1 MG; Start 08/26/16 at 05:30 Lorazepam (Ativan) 1 mg Q12 PRN PO ANXIETY Last administered on 08/30/16 06:34 ; Admin Dose 1 MG; Start 08/28/16 at 05:00 Lisinopril (Zestril) 10 mg BID PO Last administered on 08/30/16 09:03; Admin Dose 10 MG; Start 08/29/16 at 21:00 Furosemide (Lasix) 20 mg DAILY PO Last administered on 08/30/16 09:02; Admin Dose 20 MG; Start 08/30/16 at 09:00 JEANNA MYERS Aug 30, 2016 16:41
[2016-08-30] MEDS: ATORVASTATIN 40 MG TAB PO SCH (21:09)
[2016-08-31] VITALS (11 sets, daily range): BP systolic 141–180; BP diastolic 91–117; PULSE 86–94; RESP 19–20
[2016-08-31 07:21] LABS: ADD SCAN DIFF NO
[2016-08-31 07:29] LABS: BASOPHIL # 0.1 10^3/ul (0.0-0.1); BASOPHILS % 0.7 % (0.0-2.0); EOSINOPHILS # 0.3 10^3/ul (0.0-0.5); EOSINOPHILS % 2.5 % (0.0-7.0); HEMATOCRIT 46.6 % (42.0-52.0); HEMOGLOBIN 14.4 g/dl (14.0-18.0); LYMPHOCYTES # 2.4 10^3/ul (0.8-2.9); LYMPHOCYTES % 19.8 % (15.0-51.0); MEAN CORPUSCULAR HEMOGLOBIN 25.8 pg (29.0-33.0); MEAN CORPUSCULAR HGB CONC 30.9 g/dl (32.0-37.0); MEAN CORPUSCULAR VOLUME 83.4 fl (82.0-101.0); MEAN PLATELET VOLUME 9.4 fl (7.4-10.4); MONOCYTES % 8.5 % (0.0-11.0); NEUTROPHILS % 67.5 % (39.0-77.0); PLATELET COUNT 538 10^3/UL (140-415); RED BLOOD COUNT 5.59 10^6/ul (4.70-6.10); RED CELL DISTRIBUTION WIDTH 13.2 % (11.5-14.5); WHITE BLOOD COUNT 11.9 10^3/ul (4.8-10.8)
[2016-08-31 07:41] LABS: POTASSIUM 3.9 mmol/L (3.5-5.1)
[2016-08-31 07:43] LABS: CREATININE 0.87 mg/dl (0.61-1.24)
[2016-08-31 07:44] LABS: CALCIUM 9.1 mg/dl (8.4-10.2)
[2016-08-31] MEDS: FENOFIBRATE 48 MG TAB PO SCH (09:25)
[2016-08-31] MEDS: ASPIRIN 81 MG TAB PO SCH (09:25)
[2016-08-31] MEDS: FUROSEMIDE 20 MG TAB PO SCH (09:26)
[2016-08-31] MEDS: LISINOPRIL 10 MG TAB PO SCH (09:26)
[2016-08-31] MEDS: LORAZEPAM 1 MG TAB PO PRN (09:29)
--- NOTE | 2016-08-31 09:40 | CONS ---
Date/Time of Note Date/Time of Note DATE: 08/31/16 TIME: 09:39 Assessment/Plan Assessment/Plan Chief Complaint/Hosp Course assessment/impression - mild leukocytosis of unclear etiology - pyuria but Pt has no UTI Sx, cultures are negative - h/o crystal meth use, no IVDU per Pt - acute non-hemorrhagic CVA - decompensated CHF, severe cardiomyopathy. No valvular vegetation - smoker - drinker, Pt denies excess drinking or h/o withdrawal recommendations - monitor Pt off antibiotics management d/w Pt, his mother Problems: Consultation Date/Type/Reason Admit Date/Time Aug 23, 2016 at 16:48 Initial Consult Date 08/28/16 Type of Consultation: ID 24 HR Interval Summary Constitutional: no complaints Detailed Summary Eyes: no complaints ENT: no complaints Respiratory: no complaints Cardiovascular: no complaints Gastrointestinal: no complaints Genitourinary: no complaints Musculoskeletal: no complaints Skin: no complaints Neurologic: other (sagging of L corner of lips) Exam/Review of Systems Vital Signs Vitals Vital Signs Date Time Temp Pulse Resp B/P Pulse Ox O2 Delivery O2 Flow Rate FiO2 08/31/16 08:10 94 08/31/16 08:04 97.6 20 180/117 96 08/30/16 01:00 Room Air 08/29/16 23:59 21 Intake and Output 08/30/16 08/30/16 08/31/16 15:00 23:00 07:00 Intake Total 720 ml 750 ml Balance 720 ml 750 ml Exam Constitutional: alert, oriented, well developed Psych: nl mood/affect, no complaints, No anxiety Head: other (sagging of L corner of lips, mild L sided facial droop) Eyes: other (less L sided ptosis) ENMT: nl external ears & nose, nl nasal mucosa & septum Neck: supple Respiratory: clear to auscultation, normal air movement Cardiovascular: nl pulses, regular rate and rhythm Musculoskeletal: nl extremities to inspection Extremities: No edema Neurological: other (see HEENT exam) Skin: nl turgor Results Result Diagram: 08/31/16 0640 08/31/16 0640 Results 24 hrs Laboratory Tests Test 08/31/16 06:40 White Blood Count 11.9 H Red Blood Count 5.59 Hemoglobin 14.4 Hematocrit 46.6 Mean Corpuscular Volume 83.4 Mean Corpuscular Hemoglobin 25.8 L Mean Corpuscular Hemoglobin Concent 30.9 L Red Cell Distribution Width 13.2 Platelet Count 538 H Mean Platelet Volume 9.4 Neutrophils % 67.5 Lymphocytes % 19.8 Monocytes % 8.5 Eosinophils % 2.5 Basophils % 0.7 Nucleated Red Blood Cells % 0.0 Neutrophils # 8.0 H Lymphocytes # 2.4 Monocytes # 1.0 H Eosinophils # 0.3 Basophils # 0.1 Nucleated Red Blood Cells # 0.0 Sodium Level 141 Potassium Level 3.9 Chloride Level 105 Carbon Dioxide Level 26 Anion Gap 14 Blood Urea Nitrogen 23 H Creatinine 0.87 Glucose Level 115 Calcium Level 9.1 Medications Medications Current Medications Acetaminophen (Tylenol Tab) 650 mg Q6H PRN PO PAIN AND OR ELEVATED TEMP Last administered on 08/23/16 20:11; Admin Dose 650 MG; Start 08/23/16 at 20:00 Atorvastatin Calcium (Lipitor) 40 mg HS PO Last administered on 08/30/16 21:09 ; Admin Dose 40 MG; Start 08/23/16 at 21:30 Aspirin (Aspirin) 81 mg DAILY PO Last administered on 08/31/16 09:25; Admin Dose 81 MG; Start 08/24/16 at 09:00 Fenofibrate (Tricor) 48 mg DAILY PO Last administered on 08/31/16 09:25; Admin Dose 48 MG; Start 08/24/16 at 09:00 Carvedilol (Coreg) 6.25 mg BID PO Last administered on 08/31/16 09:26; Admin Dose 6.25 MG; Start 08/25/16 at 21:00 Clonidine (Catapres) 0.1 mg Q6H PRN PO ELEVATED SYSTOLIC BP Last administered on 08/29/16 01:14; Admin Dose 0.1 MG; Start 08/26/16 at 05:30 Lorazepam (Ativan) 1 mg Q12 PRN PO ANXIETY Last administered on 08/31/16 09:29 ; Admin Dose 1 MG; Start 08/28/16 at 05:00 Lisinopril (Zestril) 10 mg BID PO Last administered on 08/31/16 09:26; Admin Dose 10 MG; Start 08/29/16 at 21:00 Furosemide (Lasix) 20 mg DAILY PO Last administered on 08/31/16 09:26; Admin Dose 20 MG; Start 08/30/16 at 09:00 FANY CHEUNG M.D. Aug 31, 2016 09:40
--- NOTE | 2016-08-31 16:07 | PN ---
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 Continue aspirin. Dr. Rice is following in neurology consultation. Continue PT, OT. - Severe cardiomyopathy with ejection fraction of 25%. Dr. Montelongo is following in cardiology consultation. Continue Lasix, monitor electrolytes. -Hypertension, lisinopril increased to 20 twice daily. - Amphetamine abuse. Continue gentle hydration. health services manager consult for rehabilitation services. - Tobacco dependence Patient did not qualify for acute rehab due to high functioning, anticipate to discharge home when blood pressure is more stable, possibly tomorrow. Further recommendations based on clinical course. Plan of care discussed with Dr. Liriano. Problems: Subjective 24 Hr Interval Summary Free Text/Dictation Patient's continues to be hypertensive with systolic blood pressure in the 180s in a.m., lisinopril increased to 20 twice daily, anticipate discharged home when blood pressure is better controlled. Exam/Review of Systems Vital Signs Vitals Vital Signs Date Time Temp Pulse Resp B/P Pulse Ox O2 Delivery O2 Flow Rate FiO2 08/31/16 15:59 97.4 91 20 141/91 96 08/30/16 01:00 Room Air 08/29/16 23:59 21 Intake and Output 08/30/16 08/30/16 08/31/16 15:00 23:00 07:00 Intake Total 720 ml 750 ml Balance 720 ml 750 ml Exam Constitutional: alert, obese, well developed Psych: other (Lethargic but easily arousable) Head: atraumatic, normocephalic Eyes: nl conjunctiva ENMT: nl external ears & nose Neck: supple Respiratory: clear to auscultation, normal air movement Cardiovascular: nl pulses, regular rate and rhythm Gastrointestinal: non-tender, soft Musculoskeletal: nl extremities to inspection Extremities: normal pulses Neurological: REFUND SPECIALIST II-XII intact, Lymph: nl lymph nodes Results Result Diagram: 08/31/16 0640 08/31/16 0640 Results 24 hrs Laboratory Tests Test 08/31/16 06:40 White Blood Count 11.9 H Red Blood Count 5.59 Hemoglobin 14.4 Hematocrit 46.6 Mean Corpuscular Volume 83.4 Mean Corpuscular Hemoglobin 25.8 L Mean Corpuscular Hemoglobin Concent 30.9 L Red Cell Distribution Width 13.2 Platelet Count 538 H Mean Platelet Volume 9.4 Neutrophils % 67.5 Lymphocytes % 19.8 Monocytes % 8.5 Eosinophils % 2.5 Basophils % 0.7 Nucleated Red Blood Cells % 0.0 Neutrophils # 8.0 H Lymphocytes # 2.4 Monocytes # 1.0 H Eosinophils # 0.3 Basophils # 0.1 Nucleated Red Blood Cells # 0.0 Sodium Level 141 Potassium Level 3.9 Chloride Level 105 Carbon Dioxide Level 26 Anion Gap 14 Blood Urea Nitrogen 23 H Creatinine 0.87 Glucose Level 115 Calcium Level 9.1 Medications Medications Current Medications Acetaminophen (Tylenol Tab) 650 mg Q6H PRN PO PAIN AND OR ELEVATED TEMP Last administered on 08/23/16 20:11; Admin Dose 650 MG; Start 08/23/16 at 20:00 Atorvastatin Calcium (Lipitor) 40 mg HS PO Last administered on 08/30/16 21:09 ; Admin Dose 40 MG; Start 08/23/16 at 21:30 Aspirin (Aspirin) 81 mg DAILY PO Last administered on 08/31/16 09:25; Admin Dose 81 MG; Start 08/24/16 at 09:00 Fenofibrate (Tricor) 48 mg DAILY PO Last administered on 08/31/16 09:25; Admin Dose 48 MG; Start 08/24/16 at 09:00 Carvedilol (Coreg) 6.25 mg BID PO Last administered on 08/31/16 09:26; Admin Dose 6.25 MG; Start 08/25/16 at 21:00 Clonidine (Catapres) 0.1 mg Q6H PRN PO ELEVATED SYSTOLIC BP Last administered on 08/31/16 12:48; Admin Dose 0.1 MG; Start 08/26/16 at 05:30 Lorazepam (Ativan) 1 mg Q12 PRN PO ANXIETY Last administered on 08/31/16 09:29 ; Admin Dose 1 MG; Start 08/28/16 at 05:00 Furosemide (Lasix) 20 mg DAILY PO Last administered on 08/31/16 09:26; Admin Dose 20 MG; Start 08/30/16 at 09:00 Lisinopril (Zestril) 20 mg BID PO ; Start 08/31/16 at 21:00 JEANNA MYERS Aug 31, 2016 16:07
--- NOTE | 2016-08-31 16:16 | CONS ---
Date/Time of Note Date/Time of Note DATE: 08/31/16 TIME: 16:15 Assessment/Plan Assessment/Plan Additional Assessment/Plan Acute CVA Acute decompensated systolic congestive heart failure, improving Severe cardiomyopathy Active crystal meth use Poor medication compliance -Patient with improvement in volume status and less shortness of breath. Continue maintenance diuretics as renal function permits. Lisinopril dose has been increased. If blood pressure remains elevated, would increase dose of Coreg. Consultation Date/Type/Reason Admit Date/Time Aug 23, 2016 at 16:48 Type of Consultation: cv 24 HR Interval Summary Free Text/Dictation Patient denies shortness of breath, chest pain or palpitations Exam/Review of Systems Vital Signs Vitals Vital Signs Date Time Temp Pulse Resp B/P Pulse Ox O2 Delivery O2 Flow Rate FiO2 08/31/16 15:59 97.4 91 20 141/91 96 08/30/16 01:00 Room Air 08/29/16 23:59 21 Intake and Output 08/30/16 08/30/16 08/31/16 15:00 23:00 07:00 Intake Total 720 ml 750 ml Balance 720 ml 750 ml Exam No apparent distress Constitutional: alert, oriented Head: normocephalic Neck: supple Respiratory: other (Coarse breath sounds bilaterally, no wheezing) Cardiovascular: other (S1-S2 heard), regular rate and rhythm Gastrointestinal: bowel sounds, non-tender, other (No guarding), soft Extremities: edema (Trace), other (No cyanosis) Results Result Diagram: 08/31/16 0640 08/31/16 0640 Results 24 hrs Laboratory Tests Test 08/31/16 06:40 White Blood Count 11.9 H Red Blood Count 5.59 Hemoglobin 14.4 Hematocrit 46.6 Mean Corpuscular Volume 83.4 Mean Corpuscular Hemoglobin 25.8 L Mean Corpuscular Hemoglobin Concent 30.9 L Red Cell Distribution Width 13.2 Platelet Count 538 H Mean Platelet Volume 9.4 Neutrophils % 67.5 Lymphocytes % 19.8 Monocytes % 8.5 Eosinophils % 2.5 Basophils % 0.7 Nucleated Red Blood Cells % 0.0 Neutrophils # 8.0 H Lymphocytes # 2.4 Monocytes # 1.0 H Eosinophils # 0.3 Basophils # 0.1 Nucleated Red Blood Cells # 0.0 Sodium Level 141 Potassium Level 3.9 Chloride Level 105 Carbon Dioxide Level 26 Anion Gap 14 Blood Urea Nitrogen 23 H Creatinine 0.87 Glucose Level 115 Calcium Level 9.1 Medications Medications Current Medications Acetaminophen (Tylenol Tab) 650 mg Q6H PRN PO PAIN AND OR ELEVATED TEMP Last administered on 08/23/16 20:11; Admin Dose 650 MG; Start 08/23/16 at 20:00 Atorvastatin Calcium (Lipitor) 40 mg HS PO Last administered on 08/30/16 21:09 ; Admin Dose 40 MG; Start 08/23/16 at 21:30 Aspirin (Aspirin) 81 mg DAILY PO Last administered on 08/31/16 09:25; Admin Dose 81 MG; Start 08/24/16 at 09:00 Fenofibrate (Tricor) 48 mg DAILY PO Last administered on 08/31/16 09:25; Admin Dose 48 MG; Start 08/24/16 at 09:00 Carvedilol (Coreg) 6.25 mg BID PO Last administered on 08/31/16 09:26; Admin Dose 6.25 MG; Start 08/25/16 at 21:00 Clonidine (Catapres) 0.1 mg Q6H PRN PO ELEVATED SYSTOLIC BP Last administered on 08/31/16 12:48; Admin Dose 0.1 MG; Start 08/26/16 at 05:30 Lorazepam (Ativan) 1 mg Q12 PRN PO ANXIETY Last administered on 08/31/16 09:29 ; Admin Dose 1 MG; Start 08/28/16 at 05:00 Furosemide (Lasix) 20 mg DAILY PO Last administered on 08/31/16 09:26; Admin Dose 20 MG; Start 08/30/16 at 09:00 Lisinopril (Zestril) 20 mg BID PO ; Start 08/31/16 at 21:00 Redd Montelongo DO Aug 31, 2016 16:16
[2016-08-31] MEDS: ATORVASTATIN 40 MG TAB PO SCH (20:42)
[2016-08-31] MEDS: LISINOPRIL 20 MG TAB PO SCH (20:43)
[2016-09-01] VITALS (13 sets, daily range): BP systolic 140–170; BP diastolic 77–114; PULSE 80–104; RESP 17–20
[2016-09-01] MEDS: LORAZEPAM 1 MG TAB PO PRN ×2 (05:45→21:39)
[2016-09-01] MEDS: ASPIRIN 81 MG TAB PO SCH (09:43)
[2016-09-01] MEDS: FENOFIBRATE 48 MG TAB PO SCH (09:44)
[2016-09-01] MEDS: FUROSEMIDE 20 MG TAB PO SCH (09:44)
[2016-09-01] MEDS: LISINOPRIL 20 MG TAB PO SCH ×2 (09:45→21:39)
[2016-09-01 10:08] LABS: ADD SCAN DIFF NO
[2016-09-01 10:12] LABS: BASOPHIL # 0.1 10^3/ul (0.0-0.1); BASOPHILS % 0.6 % (0.0-2.0); EOSINOPHILS # 0.3 10^3/ul (0.0-0.5); EOSINOPHILS % 2.6 % (0.0-7.0); HEMATOCRIT 47.2 % (42.0-52.0); HEMOGLOBIN 14.6 g/dl (14.0-18.0); LYMPHOCYTES # 2.1 10^3/ul (0.8-2.9); LYMPHOCYTES % 19.9 % (15.0-51.0); MEAN CORPUSCULAR HEMOGLOBIN 25.7 pg (29.0-33.0); MEAN CORPUSCULAR HGB CONC 30.9 g/dl (32.0-37.0); MEAN PLATELET VOLUME 9.2 fl (7.4-10.4); MONOCYTES % 9.5 % (0.0-11.0); NEUTROPHIL # 7.1 10^3/ul (1.6-7.5); PLATELET COUNT 470 10^3/UL (140-415); RED BLOOD COUNT 5.69 10^6/ul (4.70-6.10); RED CELL DISTRIBUTION WIDTH 13.3 % (11.5-14.5); WHITE BLOOD COUNT 10.7 10^3/ul (4.8-10.8)
[2016-09-01 10:24] LABS: POTASSIUM 3.8 mmol/L (3.5-5.1)
[2016-09-01 10:27] LABS: CALCIUM 9.1 mg/dl (8.4-10.2); CREATININE 0.81 mg/dl (0.61-1.24)
--- NOTE | 2016-09-01 11:08 | PN ---
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 Continue aspirin. Dr. Rice is following in neurology consultation. Continue PT, OT. - Severe cardiomyopathy with ejection fraction of 25%. Dr. Montelongo is following in cardiology consultation. Continue Lasix, monitor electrolytes. -Hypertension, lisinopril increased to 20 twice daily. - Amphetamine abuse. Continue gentle hydration. senior manager creative services consult for rehabilitation services. - Tobacco dependence Patient did not qualify for acute rehab due to high functioning, anticipate to discharge home when blood pressure is more stable, possibly tomorrow. Further recommendations based on clinical course. Plan of care discussed with Dr. Liriano. Subjective 24 Hr Interval Summary Free Text/Dictation nad, SLEEPING, feels better, family at bed side- all Qs ANSWERED, DW Staff Constitutional: improved ENT: no complaints Respiratory: no complaints Cardiovascular: no complaints Gastrointestinal: no complaints Genitourinary: no complaints Musculoskeletal: no complaints Exam/Review of Systems Vital Signs Vitals Vital Signs Date Time Temp Pulse Resp B/P Pulse Ox O2 Delivery O2 Flow Rate FiO2 09/01/16 09:00 83 09/01/16 07:48 97.4 20 147/89 97 08/30/16 01:00 Room Air 08/29/16 23:59 21 Intake and Output 08/31/16 08/31/16 09/01/16 14:59 22:59 06:59 Intake Total 1600 ml Balance 1600 ml Exam Constitutional: alert, well developed Head: atraumatic Eyes: EOMI ENMT: nl external ears & nose Neck: non-tender Respiratory: clear to auscultation Cardiovascular: nl pulses Gastrointestinal: non-tender, soft Results Result Diagram: 09/01/1631 09/01/16 0931 Results 24 hrs Laboratory Tests Test 09/01/16 09:31 White Blood Count 10.7 Red Blood Count 5.69 Hemoglobin 14.6 Hematocrit 47.2 Mean Corpuscular Volume 83.0 Mean Corpuscular Hemoglobin 25.7 L Mean Corpuscular Hemoglobin Concent 30.9 L Red Cell Distribution Width 13.3 Platelet Count 470 H Mean Platelet Volume 9.2 Neutrophils % 66.0 Lymphocytes % 19.9 Monocytes % 9.5 Eosinophils % 2.6 Basophils % 0.6 Nucleated Red Blood Cells % 0.0 Neutrophils # 7.1 Lymphocytes # 2.1 Monocytes # 1.0 H Eosinophils # 0.3 Basophils # 0.1 Nucleated Red Blood Cells # 0.0 Sodium Level 140 Potassium Level 3.8 Chloride Level 107 Carbon Dioxide Level 24 Anion Gap 13 Blood Urea Nitrogen 19 Creatinine 0.81 Glucose Level 135 Calcium Level 9.1 Medications Medications Current Medications Acetaminophen (Tylenol Tab) 650 mg Q6H PRN PO PAIN AND OR ELEVATED TEMP Last administered on 08/23/16 20:11; Admin Dose 650 MG; Start 08/23/16 at 20:00 Atorvastatin Calcium (Lipitor) 40 mg HS PO Last administered on 08/31/16 20:42 ; Admin Dose 40 MG; Start 08/23/16 at 21:30 Aspirin (Aspirin) 81 mg DAILY PO Last administered on 09/01/16 09:43; Admin Dose 81 MG; Start 08/24/16 at 09:00 Fenofibrate (Tricor) 48 mg DAILY PO Last administered on 09/01/16 09:44; Admin Dose 48 MG; Start 08/24/16 at 09:00 Carvedilol (Coreg) 6.25 mg BID PO Last administered on 09/01/16 09:44; Admin Dose 6.25 MG; Start 08/25/16 at 21:00 Clonidine (Catapres) 0.1 mg Q6H PRN PO ELEVATED SYSTOLIC BP Last administered on 09/01/16 03:39; Admin Dose 0.1 MG; Start 08/26/16 at 05:30 Lorazepam (Ativan) 1 mg Q12 PRN PO ANXIETY Last administered on 09/01/16 05:45 ; Admin Dose 1 MG; Start 08/28/16 at 05:00 Furosemide (Lasix) 20 mg DAILY PO Last administered on 09/01/16 09:44; Admin Dose 20 MG; Start 08/30/16 at 09:00 Lisinopril (Zestril) 20 mg BID PO Last administered on 09/01/16 09:45; Admin Dose 20 MG; Start 08/31/16 at 21:00 DARRICK ZULUAGA Sep 01, 2016 11:08
--- NOTE | 2016-09-01 13:57 | CONS ---
Date/Time of Note Date/Time of Note DATE: 09/01/16 TIME: 13:55 Assessment/Plan Assessment/Plan Chief Complaint/Hosp Course assessment/impression - mild leukocytosis of unclear etiology - pyuria but Pt has no UTI Sx, cultures are negative - h/o crystal meth use, no IVDU per Pt - acute non-hemorrhagic CVA - decompensated CHF, severe cardiomyopathy. No valvular vegetation - smoker - drinker, Pt denies excess drinking or h/o withdrawal recommendations - monitor Pt off antibiotics - ID team will round on him as needed management d/w Pt, his mother Problems: Consultation Date/Type/Reason Admit Date/Time Aug 23, 2016 at 16:48 Initial Consult Date 08/28/16 Type of Consultation: ID 24 HR Interval Summary Constitutional: no complaints Detailed Summary Eyes: no complaints ENT: no complaints Respiratory: no complaints Cardiovascular: no complaints Gastrointestinal: no complaints Genitourinary: no complaints Musculoskeletal: no complaints Skin: no complaints Neurologic: no complaints Exam/Review of Systems Vital Signs Vitals Vital Signs Date Time Temp Pulse Resp B/P Pulse Ox O2 Delivery O2 Flow Rate FiO2 09/01/16 12:27 84 09/01/16 11:38 98.2 20 154/81 96 08/30/16 01:00 Room Air 08/29/16 23:59 21 Intake and Output 08/31/16 08/31/16 09/01/16 15:00 23:00 07:00 Intake Total 1600 ml Balance 1600 ml Exam Constitutional: alert, oriented, well developed Psych: nl mood/affect, no complaints Head: atraumatic, normocephalic Eyes: nl conjunctiva, nl lids ENMT: nl external ears & nose, nl nasal mucosa & septum Neck: non-tender, supple Musculoskeletal: nl extremities to inspection Extremities: normal pulses Neurological: other (sagging of the corner of L mouth) Results Result Diagram: 09/01/16 0931 09/01/16 0931 Results 24 hrs Laboratory Tests Test 09/01/16 09:31 White Blood Count 10.7 Red Blood Count 5.69 Hemoglobin 14.6 Hematocrit 47.2 Mean Corpuscular Volume 83.0 Mean Corpuscular Hemoglobin 25.7 L Mean Corpuscular Hemoglobin Concent 30.9 L Red Cell Distribution Width 13.3 Platelet Count 470 H Mean Platelet Volume 9.2 Neutrophils % 66.0 Lymphocytes % 19.9 Monocytes % 9.5 Eosinophils % 2.6 Basophils % 0.6 Nucleated Red Blood Cells % 0.0 Neutrophils # 7.1 Lymphocytes # 2.1 Monocytes # 1.0 H Eosinophils # 0.3 Basophils # 0.1 Nucleated Red Blood Cells # 0.0 Sodium Level 140 Potassium Level 3.8 Chloride Level 107 Carbon Dioxide Level 24 Anion Gap 13 Blood Urea Nitrogen 19 Creatinine 0.81 Glucose Level 135 Calcium Level 9.1 Medications Medications Current Medications Acetaminophen (Tylenol Tab) 650 mg Q6H PRN PO PAIN AND OR ELEVATED TEMP Last administered on 08/23/16 20:11; Admin Dose 650 MG; Start 08/23/16 at 20:00 Atorvastatin Calcium (Lipitor) 40 mg HS PO Last administered on 08/31/16 20:42 ; Admin Dose 40 MG; Start 08/23/16 at 21:30 Aspirin (Aspirin) 81 mg DAILY PO Last administered on 09/01/16 09:43; Admin Dose 81 MG; Start 08/24/16 at 09:00 Fenofibrate (Tricor) 48 mg DAILY PO Last administered on 09/01/16 09:44; Admin Dose 48 MG; Start 08/24/16 at 09:00 Carvedilol (Coreg) 6.25 mg BID PO Last administered on 09/01/16 09:44; Admin Dose 6.25 MG; Start 08/25/16 at 21:00 Clonidine (Catapres) 0.1 mg Q6H PRN PO ELEVATED SYSTOLIC BP Last administered on 09/01/16 03:39; Admin Dose 0.1 MG; Start 08/26/16 at 05:30 Lorazepam (Ativan) 1 mg Q12 PRN PO ANXIETY Last administered on 09/01/16 05:45 ; Admin Dose 1 MG; Start 08/28/16 at 05:00 Furosemide (Lasix) 20 mg DAILY PO Last administered on 09/01/16 09:44; Admin Dose 20 MG; Start 08/30/16 at 09:00 Lisinopril (Zestril) 20 mg BID PO Last administered on 09/01/16 09:45; Admin Dose 20 MG; Start 08/31/16 at 21:00 FANY CHEUNG M.D. Sep 01, 2016 13:57
--- NOTE | 2016-09-01 15:02 | CONS ---
Date/Time of Note Date/Time of Note DATE: 09/01/16 TIME: 15:00 Assessment/Plan Assessment/Plan Additional Assessment/Plan Acute CVA Acute decompensated systolic congestive heart failure, improving Severe cardiomyopathy Active crystal meth use Poor medication compliance -BP remains elevated, will increase coreg, cont other CV meds. DC planning Consultation Date/Type/Reason Admit Date/Time Aug 23, 2016 at 16:48 Type of Consultation: cv 24 HR Interval Summary Free Text/Dictation denies cp, sob, dizziness, headache Exam/Review of Systems Vital Signs Vitals Vital Signs Date Time Temp Pulse Resp B/P Pulse Ox O2 Delivery O2 Flow Rate FiO2 09/01/16 12:27 84 09/01/16 11:38 98.2 20 154/81 96 08/30/16 01:00 Room Air 08/29/16 23:59 21 Intake and Output 08/31/16 08/31/16 09/01/16 14:59 22:59 06:59 Intake Total 1600 ml Balance 1600 ml Exam nad Constitutional: alert, oriented Head: normocephalic Neck: supple Respiratory: other (course bs, no wheeze) Cardiovascular: other (s1s2), regular rate and rhythm Gastrointestinal: bowel sounds, non-tender, other (no guarding), soft Extremities: other (no edema or cyanosis) Results Result Diagram: 09/01/1631 09/01/16 0931 Results 24 hrs Laboratory Tests Test 09/01/16 09:31 White Blood Count 10.7 Red Blood Count 5.69 Hemoglobin 14.6 Hematocrit 47.2 Mean Corpuscular Volume 83.0 Mean Corpuscular Hemoglobin 25.7 L Mean Corpuscular Hemoglobin Concent 30.9 L Red Cell Distribution Width 13.3 Platelet Count 470 H Mean Platelet Volume 9.2 Neutrophils % 66.0 Lymphocytes % 19.9 Monocytes % 9.5 Eosinophils % 2.6 Basophils % 0.6 Nucleated Red Blood Cells % 0.0 Neutrophils # 7.1 Lymphocytes # 2.1 Monocytes # 1.0 H Eosinophils # 0.3 Basophils # 0.1 Nucleated Red Blood Cells # 0.0 Sodium Level 140 Potassium Level 3.8 Chloride Level 107 Carbon Dioxide Level 24 Anion Gap 13 Blood Urea Nitrogen 19 Creatinine 0.81 Glucose Level 135 Calcium Level 9.1 Medications Medications Current Medications Acetaminophen (Tylenol Tab) 650 mg Q6H PRN PO PAIN AND OR ELEVATED TEMP Last administered on 08/23/16 20:11; Admin Dose 650 MG; Start 08/23/16 at 20:00 Atorvastatin Calcium (Lipitor) 40 mg HS PO Last administered on 08/31/16 20:42 ; Admin Dose 40 MG; Start 08/23/16 at 21:30 Aspirin (Aspirin) 81 mg DAILY PO Last administered on 09/01/16 09:43; Admin Dose 81 MG; Start 08/24/16 at 09:00 Fenofibrate (Tricor) 48 mg DAILY PO Last administered on 09/01/16 09:44; Admin Dose 48 MG; Start 08/24/16 at 09:00 Clonidine (Catapres) 0.1 mg Q6H PRN PO ELEVATED SYSTOLIC BP Last administered on 09/01/16 03:39; Admin Dose 0.1 MG; Start 08/26/16 at 05:30 Lorazepam (Ativan) 1 mg Q12 PRN PO ANXIETY Last administered on 09/01/16 05:45 ; Admin Dose 1 MG; Start 08/28/16 at 05:00 Furosemide (Lasix) 20 mg DAILY PO Last administered on 09/01/16 09:44; Admin Dose 20 MG; Start 08/30/16 at 09:00 Lisinopril (Zestril) 20 mg BID PO Last administered on 09/01/16 09:45; Admin Dose 20 MG; Start 08/31/16 at 21:00 Carvedilol (Coreg) 12.5 mg BID PO ; Start 09/01/16 at 21:00 Redd Montelongo DO Sep 01, 2016 15:02
[2016-09-01] MEDS: ATORVASTATIN 40 MG TAB PO SCH (21:38)
[2016-09-02] VITALS (9 sets, daily range): BP systolic 118–166; BP diastolic 63–108; PULSE 80–90; RESP 16–18
[2016-09-02 08:10] LABS: ADD SCAN DIFF NO
[2016-09-02 08:22] LABS: BASOPHIL # 0.1 10^3/ul (0.0-0.1); BASOPHILS % 0.5 % (0.0-2.0); EOSINOPHILS # 0.3 10^3/ul (0.0-0.5); EOSINOPHILS % 2.4 % (0.0-7.0); HEMATOCRIT 50.7 % (42.0-52.0); HEMOGLOBIN 15.4 g/dl (14.0-18.0); LYMPHOCYTES # 2.5 10^3/ul (0.8-2.9); LYMPHOCYTES % 19.9 % (15.0-51.0); MEAN CORPUSCULAR HEMOGLOBIN 25.5 pg (29.0-33.0); MEAN CORPUSCULAR HGB CONC 30.4 g/dl (32.0-37.0); MEAN CORPUSCULAR VOLUME 84.1 fl (82.0-101.0); MEAN PLATELET VOLUME 9.3 fl (7.4-10.4); MONOCYTE # 0.8 10^3/ul (0.3-0.9); MONOCYTES % 6.5 % (0.0-11.0); NEUTROPHIL # 8.7 10^3/ul (1.6-7.5); NEUTROPHILS % 69.7 % (39.0-77.0); PLATELET COUNT 560 10^3/UL (140-415); RED BLOOD COUNT 6.03 10^6/ul (4.70-6.10); RED CELL DISTRIBUTION WIDTH 13.1 % (11.5-14.5); WHITE BLOOD COUNT 12.4 10^3/ul (4.8-10.8)
[2016-09-02] MEDS: ASPIRIN 81 MG TAB PO SCH (08:32)
[2016-09-02] MEDS: FUROSEMIDE 20 MG TAB PO SCH (08:33)
[2016-09-02] MEDS: FENOFIBRATE 48 MG TAB PO SCH (08:33)
[2016-09-02] MEDS: LORAZEPAM 1 MG TAB PO PRN (08:34)
[2016-09-02] MEDS: LISINOPRIL 20 MG TAB PO SCH (08:34)
[2016-09-02 08:38] LABS: POTASSIUM 4.4 mmol/L (3.5-5.1)
[2016-09-02 08:41] LABS: CREATININE 1.06 mg/dl (0.61-1.24)
[2016-09-02 08:42] LABS: CALCIUM 9.1 mg/dl (8.4-10.2)
--- NOTE | 2016-09-02 13:50 | PN ---
Date/Time of Note Date/Time of Note DATE: 09/02/16 TIME: 13:47 Assessment/Plan VTE Prophylaxis VTE Prophylaxis Intervention: SCD's Lines/Catheters IV [facility] (from [facility]): Saline Lock Assessment/Plan Chief Complaint/Hosp Course Assessment/Plan - Acute right frontal lobe and motor cortex non hemorrhagic infarcts and punctate right occipital cortical infarct. Continue aspirin. Dr. Rice is following in neurology consultation. Continue PT, OT. - Severe cardiomyopathy with ejection fraction of 25%. Dr. Montelongo is following in cardiology consultation. Continue Lasix, monitor electrolytes. -Hypertension, lisinopril increased to 20 twice daily. - Amphetamine abuse. Continue gentle hydration. associate director career services consult for rehabilitation services. - Tobacco dependence Patient did not qualify for acute rehab due to high functioning, anticipate to discharge home when blood pressure is more stable, possibly tomorrow. Further recommendations based on clinical course. Plan of care discussed with Dr. Liriano. Problems: Subjective 24 Hr Interval Summary Free Text/Dictation Patient had a run of V-tach overnight, currently s in SR, BP is better controlled. Exam/Review of Systems Vital Signs Vitals Vital Signs Date Time Temp Pulse Resp B/P Pulse Ox O2 Delivery O2 Flow Rate FiO2 09/02/16 12:23 97.9 18 131/81 97 09/02/16 12:20 80 08/30/16 01:00 Room Air 08/29/16 23:59 21 Intake and Output 09/01/16 09/01/16 09/02/16 15:00 23:00 07:00 Intake Total 960 ml 800 ml Balance 960 ml 800 ml Exam Constitutional: alert, obese, well developed Psych: other (Lethargic but easily arousable) Head: atraumatic, normocephalic Eyes: nl conjunctiva ENMT: nl external ears & nose Neck: supple Respiratory: clear to auscultation, normal air movement Cardiovascular: nl pulses, regular rate and rhythm Gastrointestinal: non-tender, soft Musculoskeletal: nl extremities to inspection Extremities: normal pulses Neurological: BOILER OPERATORS SUPERVISOR II-XII intact, Lymph: nl lymph nodes Results Result Diagram: 09/02/16 0745 09/02/16 0745 Results 24 hrs Laboratory Tests Test 09/02/16 07:45 White Blood Count 12.4 H Red Blood Count 6.03 Hemoglobin 15.4 Hematocrit 50.7 Mean Corpuscular Volume 84.1 Mean Corpuscular Hemoglobin 25.5 L Mean Corpuscular Hemoglobin Concent 30.4 L Red Cell Distribution Width 13.1 Platelet Count 560 H Mean Platelet Volume 9.3 Neutrophils % 69.7 Lymphocytes % 19.9 Monocytes % 6.5 Eosinophils % 2.4 Basophils % 0.5 Nucleated Red Blood Cells % 0.0 Neutrophils # 8.7 H Lymphocytes # 2.5 Monocytes # 0.8 Eosinophils # 0.3 Basophils # 0.1 Nucleated Red Blood Cells # 0.0 Sodium Level 139 Potassium Level 4.4 Chloride Level 104 Carbon Dioxide Level 27 Anion Gap 12 Blood Urea Nitrogen 18 Creatinine 1.06 Glucose Level 124 Calcium Level 9.1 Medications Medications Current Medications Acetaminophen (Tylenol Tab) 650 mg Q6H PRN PO PAIN AND OR ELEVATED TEMP Last administered on 08/23/16 20:11; Admin Dose 650 MG; Start 08/23/16 at 20:00 Atorvastatin Calcium (Lipitor) 40 mg HS PO Last administered on 09/01/16 21:38 ; Admin Dose 40 MG; Start 08/23/16 at 21:30 Aspirin (Aspirin) 81 mg DAILY PO Last administered on 09/02/16 08:32; Admin Dose 81 MG; Start 08/24/16 at 09:00 Fenofibrate (Tricor) 48 mg DAILY PO Last administered on 09/02/16 08:33; Admin Dose 48 MG; Start 08/24/16 at 09:00 Clonidine (Catapres) 0.1 mg Q6H PRN PO ELEVATED SYSTOLIC BP Last administered on 09/02/16 07:48; Admin Dose 0.1 MG; Start 08/26/16 at 05:30 Lorazepam (Ativan) 1 mg Q12 PRN PO ANXIETY Last administered on 09/02/16 08:34 ; Admin Dose 1 MG; Start 08/28/16 at 05:00 Furosemide (Lasix) 20 mg DAILY PO Last administered on 09/02/16 08:33; Admin Dose 20 MG; Start 08/30/16 at 09:00 Lisinopril (Zestril) 20 mg BID PO Last administered on 09/02/16 08:34; Admin Dose 20 MG; Start 08/31/16 at 21:00 Carvedilol (Coreg) 12.5 mg BID PO Last administered on 09/02/16t 08:32; Admin Dose 12.5 MG; Start 09/01/16 at 21:00 JEANNA MYERS Sep 02, 2016 13:49
--- NOTE | 2016-09-02 14:55 | CONS ---
Date/Time of Note Date/Time of Note DATE: 09/02/16 TIME: 14:50 Assessment/Plan Assessment/Plan Additional Assessment/Plan Acute CVA Acute decompensated systolic congestive heart failure, improving Severe cardiomyopathy Active crystal meth use NSVT Poor medication compliance -Patient with episode of NSVT this morning. Potassium is above 4, would check magnesium level and with supplements of less than 2. Beta-scott dose has been increased and blood pressure has improved. I did discuss with the patient given his cardiomyopathy and evidence of arrhythmias, he would benefit from ICD. Patient refusing ICD. Consultation Date/Type/Reason Admit Date/Time Aug 23, 2016 at 16:48 Type of Consultation: cv 24 HR Interval Summary Free Text/Dictation Patient seen and examined, denies chest pain, shortness of breath or palpitations Exam/Review of Systems Vital Signs Vitals Vital Signs Date Time Temp Pulse Resp B/P Pulse Ox O2 Delivery O2 Flow Rate FiO2 09/02/16 12:23 97.9 18 131/81 97 09/02/16 12:20 80 08/30/16 01:00 Room Air 08/29/16 23:59 21 Intake and Output 09/01/16 09/01/16 09/02/16 15:00 23:00 07:00 Intake Total 960 ml 800 ml Balance 960 ml 800 ml Exam Sleeping but arousable, no apparent distress, family at bedside Head: normocephalic Neck: supple Respiratory: other (Coarse breath sounds bilaterally, no wheezing) Cardiovascular: other (S1-S2 heard), regular rate and rhythm Gastrointestinal: bowel sounds, non-tender, other (No guarding), soft Extremities: other (No edema or cyanosis) Results Result Diagram: 09/02/16 0745 09/02/16 0745 Results 24 hrs Laboratory Tests Test 09/02/16 07:45 White Blood Count 12.4 H Red Blood Count 6.03 Hemoglobin 15.4 Hematocrit 50.7 Mean Corpuscular Volume 84.1 Mean Corpuscular Hemoglobin 25.5 L Mean Corpuscular Hemoglobin Concent 30.4 L Red Cell Distribution Width 13.1 Platelet Count 560 H Mean Platelet Volume 9.3 Neutrophils % 69.7 Lymphocytes % 19.9 Monocytes % 6.5 Eosinophils % 2.4 Basophils % 0.5 Nucleated Red Blood Cells % 0.0 Neutrophils # 8.7 H Lymphocytes # 2.5 Monocytes # 0.8 Eosinophils # 0.3 Basophils # 0.1 Nucleated Red Blood Cells # 0.0 Sodium Level 139 Potassium Level 4.4 Chloride Level 104 Carbon Dioxide Level 27 Anion Gap 12 Blood Urea Nitrogen 18 Creatinine 1.06 Glucose Level 124 Calcium Level 9.1 Medications Medications Current Medications Acetaminophen (Tylenol Tab) 650 mg Q6H PRN PO PAIN AND OR ELEVATED TEMP Last administered on 08/23/16 20:11; Admin Dose 650 MG; Start 08/23/16 at 20:00 Atorvastatin Calcium (Lipitor) 40 mg HS PO Last administered on 09/01/16 21:38 ; Admin Dose 40 MG; Start 08/23/16 at 21:30 Aspirin (Aspirin) 81 mg DAILY PO Last administered on 09/02/16 08:32; Admin Dose 81 MG; Start 08/24/16 at 09:00 Fenofibrate (Tricor) 48 mg DAILY PO Last administered on 09/02/16 08:33; Admin Dose 48 MG; Start 08/24/16 at 09:00 Clonidine (Catapres) 0.1 mg Q6H PRN PO ELEVATED SYSTOLIC BP Last administered on 09/02/16 07:48; Admin Dose 0.1 MG; Start 08/26/16 at 05:30 Lorazepam (Ativan) 1 mg Q12 PRN PO ANXIETY Last administered on 09/02/16 08:34 ; Admin Dose 1 MG; Start 08/28/16 at 05:00 Furosemide (Lasix) 20 mg DAILY PO Last administered on 09/02/16 08:33; Admin Dose 20 MG; Start 08/30/16 at 09:00 Lisinopril (Zestril) 20 mg BID PO Last administered on 09/02/16 08:34; Admin Dose 20 MG; Start 08/31/16 at 21:00 Carvedilol (Coreg) 12.5 mg BID PO Last administered on 09/02/16 08:32; Admin Dose 12.5 MG; Start 09/01/16 at 21:00 Redd Montelongo DO Sep 02, 2016 14:55
[2016-09-02] MEDS ORDERED: ASPI81TA3 PO (18:47)
[2016-09-02] MEDS ORDERED: LAS20 PO (18:47)
[2016-09-02] MEDS ORDERED: LISI20TA11 PO (18:47)
[2016-09-02] MEDS ORDERED: FENO48TA4 PO (18:47)
[2016-09-02] MEDS ORDERED: ATOR40TA68 PO (18:47)
[2016-09-02] MEDS ORDERED: CARV12.579 PO (18:47)
--- NOTE | 2016-09-04 20:08 | DS ---
DATE OF ADMISSION: 08/23/2016 DATE OF DISCHARGE: 09/02/2016 FINAL DIAGNOSES: 1. Acute right frontal lobe and motor cortex nonhemorrhagic infarct and punctate right occipital co rtical infarct. 2. Severe cardiomyopathy with ejection fraction of 25%. 3. Hypertension. 4. Amphetamine abuse. 5. Tobacco dependence. BRIEF HISTORY: The patient is a 30-year-old gentleman with a history of amphetamine abuse, cardiomy opathy with ejection fraction of 25%, history of pulmonary hypertension, dyslipidemia. The patient has not been taking any medication. The patient noted to have left-sided weakness, slurred speech, and left facial numbness on 08/22/2016 in the evening, but did not seek any medical advice, and came to the emergency room the next day. The patient was not a candidate for tPA. The patient was diag nosed with possible CVA and is being admitted for further evaluation and management. HOSPITAL COURSE: The patient was evaluated by Dr. Rice in neurology consultation. MRI con firmed the diagnosis of nonhemorrhagic infarct. The patient was continued on aspirin. The patient was evaluated and followed by Dr. Montelongo in cardiology consultation. Even patient when patient's ne urological symptoms improved and the patient's slurred speech and left-sided weakness ____ resolved, the patient continued to have high blood pressure and blood pressure medications were optimized by cardiology. The patient underwent physical and occupational therapy. The patient was noted to have persistent mild leukocytosis was evaluated by Dr. Dill in infectious disease consultation. How ever, the patient's blood cultures and urine cultures were negative. Influenza screen was negative. The patient was evaluated for acute rehabilitation; however, deemed to be high functioning for acu te rehabilitation and the patient was discharged to home. The patient was closely monitored on tele metry floor and underwent extensive physical and occupational therapy. The patient also noted to lee ve episodes of supraventricular tachycardia. The patient's electrolytes were closely monitored and magnesium was closely monitored. However, patient was offered ICD placement by cardiology, given th e patient's cardiomyopathy and evidence of arrhythmia; however, patient refused ICD placement at brooke t time. The patient remained in sinus rhythm most of the time and the patient was discharged home. CONDITION ON DISCHARGE: Hemodynamically stable. ACTIVITY: As patient tolerates. DIET: 2 g sodium, low fat, low cholesterol diet. DISCHARGE MEDICATIONS: The patient given prescription for: 1. Atorvastatin. 2. Lasix. 3. Lisinopril. The patient is to continue on: 1. Aspirin. 2. Coreg. 3. Clonidine. 4. Fenofibrate. 5. Ativan. DISCHARGE INSTRUCTIONS: The patient instructed to follow up with his primary care physician in 1 we ek and BMP in 1 week. The patient instructed to follow up with kosher inspector. Interdisciplinary plan of care was established for this patient. Plan of care was discussed with Dr Bianka Aguilar. Dictated By: JEANNA MYERS [employer]PORT MAINTENANCE CHIEF for ZACHARIAH AGUILAR MD SR/NTS Conf#: [id number] DID#: [id number]
== END 2016-09-02 19:23 | disposition home or self-care (01) | DRG 64 ==
LOC: E/R 14:14 → MS4 16:48
PROVIDERS: ADMIT Internal Medicine; ATTEND Internal Medicine
DX: I63.9 Cerebral infarction, unspecified (principal); I50.23 Acute on chronic systolic (congestive) heart failure; I42.9 Cardiomyopathy, unspecified; I27.2 Other secondary pulmonary hypertension; G81.94 Hemiplegia, unspecified affecting left nondominant side; I47.1 Supraventricular tachycardia; E87.6 Hypokalemia; F15.10 Other stimulant abuse, uncomplicated; E78.5 Hyperlipidemia, unspecified; F17.200 Nicotine dependence, unspecified, uncomplicated; I11.0 Hypertensive heart disease with heart failure; D72.829 Elevated white blood cell count, unspecified
CPT/HCPCS: 36415; 70450; 70551; 71010; 71020; 80048; 80061; 80306; 81001; 81003; 83036; 83735; 85025; 85610; 85730; 86703; 86704; 86709; 86803; 87040; 87086; 87340; 87400; 92610; 93005; 93306; 93880; 94664; 96374; 97116; 97162; 97530; J1940; J3475; J3480; J7042

== ENCOUNTER 2017-03-02 22:24 | Emergency (ER) | payer OTHER ==
[~2017-03-02] VITALS: Ht 177.8 cm; Wt 126.0 kg
[~2017-03-02 22:24] MED LIST changes: +ATOR40TA68 PO; +CLON-379 PO; -FURO40TA4 PO; +LAS20 PO; -LISI10TA2 PO; +LISI20TA11 PO
[2017-03-02 22:27] VITALS: Ht 177.8 cm; Wt 126.0 kg
[2017-03-02] MEDS ORDERED: ONDANSETRON 4 MG INJ IV STA (23:52)
[2017-03-02] MEDS ORDERED: morphine 4 MG/ML VIAL IV STA (23:52)
[2017-03-03 00:55] LABS: BASOPHIL # 0.1 10^3/ul (0.0-0.1); BASOPHILS % 0.4 % (0.0-2.0); EOSINOPHILS # 0.3 10^3/ul (0.0-0.5); EOSINOPHILS % 1.8 % (0.0-7.0); HEMATOCRIT 43.5 % (42.0-52.0); HEMOGLOBIN 13.4 g/dl (14.0-18.0); LYMPHOCYTES # 2.6 10^3/ul (0.8-2.9); LYMPHOCYTES % 17.9 % (15.0-51.0); MEAN CORPUSCULAR HEMOGLOBIN 26.4 pg (29.0-33.0); MEAN CORPUSCULAR HGB CONC 30.8 g/dl (32.0-37.0); MEAN CORPUSCULAR VOLUME 85.8 fl (82.0-101.0); MEAN PLATELET VOLUME 9.7 fl (7.4-10.4); MONOCYTE # 1.2 10^3/ul (0.3-0.9); MONOCYTES % 8.4 % (0.0-11.0); NEUTROPHIL # 10.1 10^3/ul (1.6-7.5); NEUTROPHILS % 70.4 % (39.0-77.0); NUCLEATED RED BLOOD CELLS% 0.1 /100WBC (0.0-0.0); PLATELET COUNT 441 10^3/UL (140-415); RED BLOOD COUNT 5.07 10^6/ul (4.70-6.10); RED CELL DISTRIBUTION WIDTH 13.1 % (11.5-14.5); WHITE BLOOD COUNT 14.4 10^3/ul (4.8-10.8)
--- NOTE | 2017-03-03 00:55 | RADRPT ---
PROCEDURE: XR Chest. CLINICAL INDICATION: Abdominal pain. TECHNIQUE: Single frontal view. COMPARISON: 08/28/2016. FINDINGS: The lungs are clear. The heart is enlarged. There is no pleural effusion. There is no pneumothorax. IMPRESSION: 1. Cardiomegaly. 2. Clear lungs. 3. No change from 08/28/2016. RPTAT: QQ .Fede Luis MD, MD Date Time Electronically viewed and signed by .Fede Luis MD, MD on 03/03/2017 00:55 .R/
--- NOTE | 2017-03-03 01:00 | RADRPT ---
PROCEDURE: CT Abdomen and Pelvis without contrast. CLINICAL INDICATION: Abdominal and pelvic pain. TECHNIQUE: CT scan of the abdomen and pelvis without contrast was performed. Coronal and sagittal reformatted images were obtained from the axial source images. Images were reviewed on a high-resolu [employer] PACS workstation. Total exam DLP is 1606.98 mGy-cm. CTDIvol is 23.50 mGy. One or more of the following dose reduction techniques were used: Automated exposure control, adjustment of the mA and/ or kV according to patient size, use of iterative reconstruction technique. COMPARISON: None. FINDINGS: The lung bases are normal. There is no pleural effusion or pericardial effusion. The heart is enlar ged. The liver is normal in size and attenuation. There is no focal hepatic lesion. The gallbladder and bile ducts are normal. The spleen is normal in size. There is no focal splenic lesion. Both adrenals are normal with no enlargement or mass. The pancreas is unremarkable with no mass or evidence of pancreatitis. There is no renal mass or hydronephrosis. There is no renal calculus or ureteral calculus. There is mild bilateral perinephric edema. The abdominal aorta is not dilated. There is no retroperitoneal lymphadenopathy or mass. There is no pelvic lymphadenopathy or mass. The bladder and distal ureters are normal. The periappendiceal region is unremarkable with no evidence of appendicitis. The appendix is well se en and appears normal. The bowel and mesentery are normal. There is mild diffuse subcutaneous adipose tissue edema. A small amount of free fluid is present in the cul-de-sac. There is no free air. The osseous structures are unremarkable with no fracture or lytic lesion. IMPRESSION: 1. Cardiomegaly. 2. Mild bilateral perinephric edema. 3. Mild diffuse subcutaneous adipose tissue edema. 4. Small amount of free fluid in the cul-de-sac. 5. Otherwise unremarkable study. RPTAT: QQ .Fede Luis MD, MD Date Time Electronically viewed and signed by .Fede Luis MD, on 03/03/2017 01:00 .R/
[2017-03-03 01:06] LABS: INR 1.28; PROTIME 16.1 Sec (12.2-14.2); PT RATIO 1.3
[2017-03-03 01:07] LABS: PARTIAL THROMBOPLASTIN TIME 30.9 Sec (25.0-35.0)
[2017-03-03 01:11] LABS: ALBUMIN 3.5 g/dl (3.3-4.9); ALBUMIN/GLOBULIN RATIO 1.09; BILIRUBIN,INDIRECT 1.1 mg/dl (0-1.1); BILIRUBIN,TOTAL 1.1 mg/dl (0.2-1.3); CALCIUM 8.9 mg/dl (8.4-10.2); CREATININE 1.17 mg/dl (0.61-1.24); TOTAL PROTEIN 6.7 g/dl (6.1-8.1)
[2017-03-03 01:20] LABS: ADD UMIC YES; UR ASCORBIC ACID NEGATIVE (NEGATIVE); UR BACTERIA FEW /HPF (NONE SEEN); UR BILIRUBIN (Dip) NEGATIVE (NEGATIVE); UR BLOOD (Dip) NEGATIVE (NEGATIVE); UR CLARITY SLIGHTLY CLOUDY (CLEAR); UR COLOR AMBER (YELLOW); UR GLUCOSE (Dip) NEGATIVE (NEGATIVE); UR KETONES (Dip) NEGATIVE (NEGATIVE); UR LEUKOCYTE ESTERASE (Dip) 1+ Leu/ul (NEGATIVE); UR MUCUS MODERATE /HPF (NONE SEEN); UR NITRITE (Dip) NEGATIVE (NEGATIVE); UR RBC 15 /HPF (0-5); UR SPECIFIC GRAVITY (Dip) 1.027 (1.003-1.030); UR TOTAL PROTEIN (Dip) 3+ mg/dl (NEGATIVE); UR UROBILINOGEN (Dip) 2+ mg/dL (NEGATIVE)
[2017-03-03] MEDS ORDERED: FUROSEMIDE 40 MG INJ IV ONE (02:00)
[2017-03-03] MEDS ORDERED: FURO-110 PO (02:12)
[2017-03-03] MEDS ORDERED: CIPR500T4 PO (02:12)
--- NOTE | 2017-03-03 03:00 | ERD ---
ER Documentation Chief Complaint Date/Time DATE: 03/03/17 TIME: 02:54 Chief Complaint cough w/ sob x 4 days HPI This patient is a 31-year-old male presenting to the emergency department with complaints of cough associated with shortness of breath. He also has chest congestion. Symptoms are intermittent over the past 2 weeks. He admits to some right upper quadrant pain. He denies nausea, vomiting, diarrhea. He does have history of CHF and bilateral lower extremity edema. He denies fevers, chills, or other symptoms currently. ROS All systems reviewed and are negative except as per history of present illness. Medications Home Meds Active Scripts Furosemide* (Lasix*) 20 Mg Tablet, 20 MG PO DAILY, #5 TAB Prov:CARISSA NUNEZ PA-C 03/03/17 Ciprofloxacin Hcl* (Ciprofloxacin Hcl*) 500 Mg Tablet, 500 MG PO BID for 7 Days , #14 TAB Prov:CARISSA NUNEZ PA-C 03/03/17 Lisinopril* (Lisinopril*) 20 Mg Tablet, 20 MG PO BID for 30 Days, TAB Prov:JEANNA MYERS 09/02/16 Furosemide (Lasix) 20 Mg Tab, 20 MG PO DAILY for 30 Days, TAB Prov:JEANNA MYERS 09/02/16 Atorvastatin* (Atorvastatin*) 40 Mg Tablet, 40 MG PO HS for 30 Days, TAB Prov:JULIO MYERSLANA 09/02/16 Fenofibrate Nanocrystallized* (Fenofibrate*) 48 Mg Tablet, 48 MG PO DAILY for 30 Days, TAB Prov:JEANNA MYERS 09/02/16 Carvedilol* (Carvedilol*) 12.5 Mg Tablet, 12.5 MG PO BID for 30 Days, TAB Prov:JEANNA MYERS 09/02/16 Aspirin (Aspirin) 81 Mg Chew, 81 MG PO DAILY for 30 Days, TAB Prov:JEANNA MYERS 09/02/16 Lorazepam* (Lorazepam*) 1 Mg Tablet, 1 MG PO HS Y for ANXIETY, #20 TAB Prov:XAVIER HARVEY NP 10/20/15 Reported Medications Clonidine Hcl* (Clonidine Hcl*) 0.1 Mg Tab, 0.1 MG PO Q8, TAB 08/23/16 Allergies Allergies: Coded Allergies: No Known Allergy (Unverified , 10/16/15) PMhx/Soc History of Surgery: No Anesthesia Reaction: No Hx Neurological Disorder: Yes (DX: SUB ACUTE CVA) Hx Respiratory Disorders: No Hx Cardiac Disorders: Yes (HTN,CHF,HIGH CHOL) Hx Psychiatric Problems: Yes (ANXIETY) Hx Miscellaneous Medical Probl: No Hx Alcohol Use: Yes Hx Substance Use: Yes (METH. LAST USE 5 DAYS AGO) Hx Tobacco Use: Yes Smoking Status: Never smoker Physical Exam Vitals Vital Signs Date Time Temp Pulse Resp B/P Pulse Ox O2 Delivery O2 Flow Rate FiO2 03/02/17 22:27 98.4 103 20 152/85 100 Physical Exam Const: Nontoxic, well-appearing male in mild distress secondary to pain. Head: Atraumatic Eyes: Normal Conjunctiva ENT: Normal External Ears, Nose and Mouth. Neck: Full range of motion..~ No meningismus. Resp: Clear to auscultation bilaterally Cardio: Regular rate and rhythm, no murmurs Abd: Soft, tenderness to palpation of the right upper quadrant, non distended. Normal bowel sounds. No McBurney's point tenderness. Skin: No petechiae or rashes Back: No midline or flank tenderness Ext: No cyanosis, or edema Neur: Awake and alert Psych: Normal Mood and Affect Result Diagram: 03/03/17 0023 03/03/17 0023 Results 24 hrs Laboratory Tests Test 03/03/17 00:05 03/03/17 00:23 Urine Color CHRISTINE Urine Clarity SLIGHTLY CLOUDY Urine pH 5.0 Urine Specific [place] 1.027 Urine Ketones NEGATIVEmg/dL Urine Nitrite NEGATIVEmg/dL Urine Bilirubin NEGATIVEmg/dL Urine Urobilinogen 2+mg/dL Urine Leukocyte Esterase 1+Jaziel/ul Urine Microscopic RBC 15/HPF Urine Microscopic WBC 120/HPF Urine Bacteria FEW/HPF Urine Mucus MODERATE/HPF Urine Hemoglobin NEGATIVEmg/dL Urine Glucose NEGATIVEmg/dL Urine Total Protein 3+mg/dl White Blood Count 14.410^3/ul Red Blood Count 5.0710^6/ul Hemoglobin 13.4g/dl Hematocrit 43.5% Mean Corpuscular Volume 85.8fl Mean Corpuscular Hemoglobin 26.4pg Mean Corpuscular Hemoglobin Concent 30.8g/dl Red Cell Distribution Width 13.1% Platelet Count 77434^3/UL Mean Platelet Volume 9.7fl Neutrophils % 70.4% Lymphocytes % 17.9% Monocytes % 8.4% Eosinophils % 1.8% Basophils % 0.4% Nucleated Red Blood Cells % 0.1/100WBC Neutrophils # 10.110^3/ul Lymphocytes # 2.610^3/ul Monocytes # 1.210^3/ul Eosinophils # 0.310^3/ul Basophils # 0.110^3/ul Nucleated Red Blood Cells # 0.010^3/ul Prothrombin Time 16.1Sec Prothrombin Time Ratio 1.3 INR International Normalized Ratio 1.28 Activated Partial Thromboplast Time 30.9Sec Sodium Level 139mmol/L Potassium Level 4.0mmol/L Chloride Level 106mmol/L Carbon Dioxide Level 24mmol/L Anion Gap 13 Blood Urea Nitrogen 24mg/dl Creatinine 1.17mg/dl Glucose Level 103mg/dl Calcium Level 8.9mg/dl Total Bilirubin 1.1mg/dl Direct Bilirubin 0.00mg/dl Indirect Bilirubin 1.1mg/dl Aspartate Amino Transf (AST/SGOT) 57IU/L Alanine Aminotransferase (ALT/SGPT) 71IU/L Alkaline Phosphatase 97IU/L B-Type Natriuretic Peptide 3660PG/ML Total Protein 6.7g/dl Albumin 3.5g/dl Globulin 3.20g/dl Albumin/Globulin Ratio 1.09 Lipase 67U/L Current Medications Medications (Trade) Dose Ordered Sig/Umer Route PRN Reason Start Time Stop Time Status Last Admin Dose Admin Morphine Sulfate (morphine) 4 mg ONCE STAT IV 03/02/17 23:52 03/02/17 23:56 DC 03/03/17 00:25 Ondansetron HCl (Zofran Inj) 4 mg ONCE STAT IV 03/02/17 23:52 03/02/17 23:56 DC 03/03/17 00:24 Furosemide (Lasix) 40 mg ONCE ONCE IV 03/03/17 02:00 03/03/17 02:01 DC 03/03/17 02:09 Procedures/MDM Patient is a 31-year-old male presenting to the emergency department with complaints of cough and shortness of breath. The patient was given IV morphine and Zofran in the department and he was feeling improved on reevaluation. The patient was also put on oxygen. CBC showed leukocytosis with white count of 14.4, which is likely reactive in nature to his CHF. Chemistry was essentially normal, besides a mild elevation in BUN at 24. BNP was elevated at 3660. This is consistent with acute exacerbation of CHF. Urinalysis was concerning for a mild, uncomplicated urinary tract infection. Chest x-ray did show cardiomegaly , but lungs were clear. CT abdomen and pelvis did show cardiomegaly, mild bilateral perinephric edema, and otherwise unremarkable study. After workup in the department, the patient was given IV Lasix for elevated BNP. I discussed this case with attending physician, Dr. Rl Wills, who agreed with the overall ED course and recommended IV Lasix, with close follow-up with the PCP and lean process deployment consultant. The patient agreed with the discharge plan a diagnosis. Strict ER return precautions were discussed. He was given a prescription for antibiotics for his urinary tract infection as well as p.o. Lasix for a short course of treatment. Follow-up with PCP within 1-2 days. PROCEDURE: CT Abdomen and Pelvis without contrast. CLINICAL INDICATION: Abdominal and pelvic pain. TECHNIQUE: CT scan of the abdomen and pelvis without contrast was performed. Coronal and sagittal reformatted images were obtained from the axial source images. Images were reviewed on a high-resolution PACS workstation. Total exam DLP is 1606.98 mGy-cm. CTDIvol is 23.50 mGy. One or more of the following dose reduction techniques were used: Automated exposure control, adjustment of the mA and/or kV according to patient size, use of iterative reconstruction technique. COMPARISON: None. FINDINGS: The lung bases are normal. There is no pleural effusion or pericardial effusion. The heart is enlarged. The liver is normal in size and attenuation. There is no focal hepatic lesion. The gallbladder and bile ducts are normal. The spleen is normal in size. There is no focal splenic lesion. Both adrenals are normal with no enlargement or mass. The pancreas is unremarkable with no mass or evidence of pancreatitis. There is no renal mass or hydronephrosis. There is no renal calculus or ureteral calculus. There is mild bilateral perinephric edema. The abdominal aorta is not dilated. There is no retroperitoneal lymphadenopathy or mass. There is no pelvic lymphadenopathy or mass. The bladder and distal ureters are normal. The periappendiceal region is unremarkable with no evidence of appendicitis. The appendix is well seen and appears normal. The bowel and mesentery are normal. There is mild diffuse subcutaneous adipose tissue edema. A small amount of free fluid is present in the cul-de-sac. There is no free air. The osseous structures are unremarkable with no fracture or lytic lesion. IMPRESSION: 1. Cardiomegaly. 2. Mild bilateral perinephric edema. 3. Mild diffuse subcutaneous adipose tissue edema. 4. Small amount of free fluid in the cul-de-sac. 5. Otherwise unremarkable study. RPTAT: QQ .Fede Luis MD, Date Time Electronically viewed and signed by .Fede Luis MD, on 03/03/2017 01:00 PROCEDURE: XR Chest. CLINICAL INDICATION: Abdominal pain. TECHNIQUE: Single frontal view. COMPARISON: 08/28/2016. FINDINGS: The lungs are clear. The heart is enlarged. There is no pleural effusion. There is no pneumothorax. IMPRESSION: 1. Cardiomegaly. 2. Clear lungs. 3. No change from 08/28/2016. RPTAT: QQ .Fede Luis MD, MD Date Time Electronically viewed and signed by .Fede Luis MD, MD on 03/03/2017 00:55 Departure Diagnosis: Primary Impression: Edema Edema type: unspecified Qualified Code: R60.9 - Edema, unspecified type Additional Impression: Urinary tract infection Urinary tract infection type: site unspecified Hematuria presence: without hematuria Qualified Code: N39.0 - Urinary tract infection without hematuria, site unspecified Condition: Fair Patient Instructions: Understanding Urinary Tract Infections (UTIs), Peripheral Edema, Bilateral Referrals: COMMUNITY CLINICS YOU HAVE RECEIVED A MEDICAL SCREENING EXAM AND THE RESULTS INDICATE THAT YOU DO NOT HAVE A CONDITION THAT REQUIRES URGENT TREATMENT IN THE EMERGENCY DEPARTMENT. FURTHER EVALUATION AND TREATMENT OF YOUR CONDITION CAN WAIT UNTIL YOU ARE SEEN IN YOUR DOCTORS OFFICE WITHIN THE NEXT 1-2 DAYS. IT IS YOUR RESPONSIBILITY TO MAKE AN APPOINTMENT FOR FOLOW-UP CARE. IF YOU HAVE A PRIMARY DOCTOR --you should call your primary doctor and schedule an appointment IF YOU DO NOT HAVE A PRIMARY DOCTOR YOU CAN CALL OUR PHYSICIAN REFERRAL HOTLINE AT IF YOU CAN NOT AFFORD TO SEE A PHYSICIAN YOU CAN CHOSE FROM THE FOLLOWING [facility] [address] [facility] [address] [facility] [address] [facility] [address] [facility] [address] [facility]. [facility]. [address] Additional Instructions: Follow up with your PCP within the next 1-3 days for a repeat evaluation. If you require a referral to a specialist, your Primary Care Provider may be able to provide this for you. In most patient cases, a referral is not required. If you have further questions regarding this matter, please ask your Primary Care Provider. Return the the emergency department immediately if symptoms worsen or change. If you have any questions regarding medications, ask your pharmacist or us before you leave. If any adverse reactions, occur while taking your medications, discontinue the treatment and return to the emergency department immediately. If any new or worsening symptoms, uncontrolled fevers, or other unexplained symptoms occur, return to the emergency department immediately. Take your medications as directed, and complete the entire course of treatment. CARISSA NUNEZ PA-C Mar 03, 2017 03:00
[2017-03-03 03:10] VITALS: BP 168/98; PULSE 78; RESP 18; TEMP 98.4
== END 2017-03-03 03:15 | disposition home or self-care (01) ==
LOC: FTE 22:24
DX: R60.0 Localized edema (principal); N39.0 Urinary tract infection, site not specified; I10 Essential (primary) hypertension; R10.9 Unspecified abdominal pain; Z79.82 Long term (current) use of aspirin; Z87.891 Personal history of nicotine dependence
CPT/HCPCS: 71010; 74176; 80053; 81001; 83690; 83880; 85025; 85610; 85730; 96374; 96375; J1940; J2270; J2405; Z7502

== ENCOUNTER 2017-03-13 23:38 | Emergency (ER) | payer OTHER ==
[~2017-03-13] VITALS: Ht 185.4 cm; Wt 120.3 kg
[~2017-03-13 23:38] MED LIST changes: +CIPR500T4 PO; +FURO-110 PO
[2017-03-14] VITALS (12 sets, daily range): BP systolic 136–181; BP diastolic 61–115; PULSE 87–109; RESP 18; TEMP 97.8; Ht 185.4 cm; Wt 120.3 kg
[2017-03-14 00:49] LABS: BASOPHIL # 0.1 10^3/ul (0.0-0.1); BASOPHILS % 0.5 % (0.0-2.0); EOSINOPHILS # 0.1 10^3/ul (0.0-0.5); EOSINOPHILS % 0.9 % (0.0-7.0); HEMOGLOBIN 12.3 g/dl (14.0-18.0); LYMPHOCYTES # 1.5 10^3/ul (0.8-2.9); LYMPHOCYTES % 10.3 % (15.0-51.0); MEAN CORPUSCULAR HEMOGLOBIN 26.2 pg (29.0-33.0); MEAN CORPUSCULAR HGB CONC 31.5 g/dl (32.0-37.0); MEAN CORPUSCULAR VOLUME 83.2 fl (82.0-101.0); MEAN PLATELET VOLUME 9.7 fl (7.4-10.4); MONOCYTE # 0.9 10^3/ul (0.3-0.9); MONOCYTES % 6.5 % (0.0-11.0); NEUTROPHIL # 11.5 10^3/ul (1.6-7.5); NEUTROPHILS % 81.2 % (39.0-77.0); PLATELET COUNT 465 10^3/UL (140-415); RED BLOOD COUNT 4.69 10^6/ul (4.70-6.10); RED CELL DISTRIBUTION WIDTH 14.3 % (11.5-14.5); WHITE BLOOD COUNT 14.1 10^3/ul (4.8-10.8)
[2017-03-14 01:14] LABS: ALBUMIN 3.2 g/dl (3.3-4.9); ALBUMIN/GLOBULIN RATIO 0.94; CALCIUM 8.5 mg/dl (8.4-10.2); CREATININE 1.17 mg/dl (0.61-1.24); POTASSIUM 3.6 mmol/L (3.5-5.1); TOTAL PROTEIN 6.6 g/dl (6.1-8.1)
[2017-03-14 01:25] LABS: TROPONIN-I 0.082 ng/ml (0.00-0.12)
[2017-03-14] MEDS ORDERED: FUROSEMIDE 20 MG INJ ONE (01:38)
--- NOTE | 2017-03-14 01:50 | RADRPT ---
PROCEDURE: XR Chest. CLINICAL INDICATION: Chest pain. TECHNIQUE: Single frontal view of the chest. COMPARISON: 08/28/2016. FINDINGS: Cardiomegaly. The lungs are clear. No signs of pleural fluid or pneumothorax are seen. The osseous s tructures and soft tissues are unremarkable. IMPRESSION: No evidence for active cardiopulmonary disease. RPTAT: [facility] Physician Arthur Date Time Electronically viewed and signed by Kelly Hinkle Physician on 03/14/2017 01:50 RS/
[2017-03-14] MEDS ORDERED: FUROSEMIDE 40 MG INJ IV ONE (02:00)
--- NOTE | 2017-03-14 03:29 | ERA ---
ER Documentation Chief Complaint Date/Time DATE: 03/14/17 TIME: 03:28 Chief Complaint SOB; hx of CHF, shahrzad leg swelling HPI This is a very pleasant 31 year male comes in with shortness of breath. Patient has history of CHF with bilateral lower extremity swelling. No nausea no vomiting no fevers no chills. Shortness breath started 2 days ago getting progressively worse. Lower extremity swelling started 3 days ago has been getting gradually worse. No caio chest pain. No other current complaints. ROS All systems reviewed and are negative except as per history of present illness. Medications Home Meds Active Scripts Furosemide* (Lasix*) 20 Mg Tablet, 20 MG PO DAILY, #5 TAB Prov:CARISSA NUNEZ PA-C 03/03/17 Ciprofloxacin Hcl* (Ciprofloxacin Hcl*) 500 Mg Tablet, 500 MG PO BID for 7 Days , #14 TAB Prov:CARISSA NUNEZ PA-C 03/03/17 Lisinopril* (Lisinopril*) 20 Mg Tablet, 20 MG PO BID for 30 Days, TAB Prov:JEANNA MYERS 09/02/16 Atorvastatin* (Atorvastatin*) 40 Mg Tablet, 40 MG PO HS for 30 Days, TAB Prov:JEANNA MYERS 09/02/16 Fenofibrate Nanocrystallized* (Fenofibrate*) 48 Mg Tablet, 48 MG PO DAILY for 30 Days, TAB Prov:JEANNA MYERS 09/02/16 Carvedilol* (Carvedilol*) 12.5 Mg Tablet, 12.5 MG PO BID for 30 Days, TAB Prov:JEANNA MYERS 09/02/16 Aspirin (Aspirin) 81 Mg Chew, 81 MG PO DAILY for 30 Days, TAB Prov:JEANNA MYERS 09/02/16 Lorazepam* (Lorazepam*) 1 Mg Tablet, 1 MG PO HS Y for ANXIETY, #20 TAB Prov:XAVIER HARVEY MERCHANDISING SPECIALIST 10/20/15 Reported Medications Clonidine Hcl* (Clonidine Hcl*) 0.1 Mg Tab, 0.1 MG PO Q8, TAB 08/23/16 Discontinued Scripts Furosemide (Lasix) 20 Mg Tab, 20 MG PO DAILY for 30 Days, TAB Prov:JEANNA MYERS 09/02/16 Allergies Allergies: Coded Allergies: No Known Allergy (Unverified , 03/14/17) PMhx/Soc Medical and Surgical Hx: pt denies Surgical Hx History of Surgery: No Anesthesia Reaction: No Hx Neurological Disorder: Yes (DX: SUB ACUTE CVA) Hx Respiratory Disorders: No Hx Cardiac Disorders: Yes ("SOME CARDIAC PROBLEM"- RECOM. 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 Neck: Full range of motion..~ No meningismus. Resp: Clear to auscultation bilaterally Cardio: Regular rate and rhythm, no murmurs Abd: Soft, non tender, non distended. Normal bowel sounds Skin: No petechiae or rashes Back: No midline or flank tenderness Ext: No cyanosis, or edema Neur: Awake and alert Psych: Normal Mood and Affect Result Diagram: 03/14/17 0030 03/14/17 0030 Results 24 hrs Laboratory Tests Test 03/14/17 00:30 White Blood Count 14.110^3/ul Red Blood Count 4.6910^6/ul Hemoglobin 12.3g/dl Hematocrit 39.0% Mean Corpuscular Volume 83.2fl Mean Corpuscular Hemoglobin 26.2pg Mean Corpuscular Hemoglobin Concent 31.5g/dl Red Cell Distribution Width 14.3% Platelet Count 75961^3/UL Mean Platelet Volume 9.7fl Neutrophils % 81.2% Lymphocytes % 10.3% Monocytes % 6.5% Eosinophils % 0.9% Basophils % 0.5% Nucleated Red Blood Cells % 0.0/100WBC Neutrophils # 11.510^3/ul Lymphocytes # 1.510^3/ul Monocytes # 0.910^3/ul Eosinophils # 0.110^3/ul Basophils # 0.110^3/ul Nucleated Red Blood Cells # 0.010^3/ul Sodium Level 139mmol/L Potassium Level 3.6mmol/L Chloride Level 108mmol/L Carbon Dioxide Level 25mmol/L Anion Gap 10 Blood Urea Nitrogen 23mg/dl Creatinine 1.17mg/dl Glucose Level 103mg/dl Calcium Level 8.5mg/dl Total Bilirubin 1.0mg/dl Direct Bilirubin 0.00mg/dl Indirect Bilirubin 1.0mg/dl Aspartate Amino Transf (AST/SGOT) 56IU/L Alanine Aminotransferase (ALT/SGPT) 268IU/L Alkaline Phosphatase 105IU/L Troponin I 0.082ng/ml B-Type Natriuretic Peptide 4210PG/ML Total Protein 6.6g/dl Albumin 3.2g/dl Globulin 3.40g/dl Albumin/Globulin Ratio 0.94 Current Medications Medications (Trade) Dose Ordered Sig/Umer Route PRN Reason Start Time Stop Time Status Last Admin Dose Admin Furosemide (Lasix) 80 mg ONCE ONCE IV 03/14/17 02:00 03/14/17 02:01 DC 03/14/17 02:07 Furosemide (Lasix) 20 mg STK-MED ONCE .ROUTE 03/14/17 01:38 03/14/17 01:39 DC Procedures/MDM EKG: Rate/Rhythm: [Normal Sinus Rhythm] QRS, ST, T-waves: [No changes consistent w/ acute ischemia] Impression: [No evidence of ischemia or arrhythmia] Chest X-ray 1V Interpreted by me: Soft Tissue: No acute abnormalities Bones: No acute abnormalities Mediastinum/Cardiac Silhouette/Lungs: Cardiomegaly Patient's heart failure symptoms is concerning for acute decompensation and will require inpatient workup and monitoring. Further w/u for ischemia, arrhythmia, PE or dissection will be deferred to the inpatient team. Accepting Care Team: Current data and ongoing care discussed. Time: 2 AM Primary Provider: Hospitalist Consulting: [XOXOXO] Outstanding Data: none Departure Diagnosis: Primary Impression: CHF (congestive heart failure) Qualified Code: I50.9 - Congestive heart failure, unspecified congestive heart failure chronicity, unspecified congestive heart failure type Condition: Serious CARISSA CORRALES Mar 14, 2017 03:29
[2017-03-14] MEDS ORDERED: LORAZEPAM 1 MG TAB PO PRN ×3 (06:30→20:30)
[2017-03-14] MEDS: FUROSEMIDE 20 MG INJ IV SCH ×2 (07:30→17:14)
[2017-03-14] MEDS: POTASSIUM CHLORIDE (SR) 20 MEQ TAB PO SCH (08:34)
[2017-03-14] MEDS: FENOFIBRATE 48 MG TAB PO SCH (08:34)
[2017-03-14] MEDS: ASPIRIN 81 MG TAB PO SCH (08:35)
[2017-03-14] MEDS: LISINOPRIL 20 MG TAB PO SCH ×2 (08:35→21:00)
[2017-03-14 08:51] LABS: BASOPHIL # 0.1 10^3/ul (0.0-0.1); BASOPHILS % 0.7 % (0.0-2.0); EOSINOPHILS # 0.3 10^3/ul (0.0-0.5); EOSINOPHILS % 2.1 % (0.0-7.0); HEMATOCRIT 44.6 % (42.0-52.0); HEMOGLOBIN 13.8 g/dl (14.0-18.0); LYMPHOCYTES # 1.8 10^3/ul (0.8-2.9); LYMPHOCYTES % 14.7 % (15.0-51.0); MEAN CORPUSCULAR HEMOGLOBIN 25.8 pg (29.0-33.0); MEAN CORPUSCULAR HGB CONC 30.9 g/dl (32.0-37.0); MEAN CORPUSCULAR VOLUME 83.4 fl (82.0-101.0); MEAN PLATELET VOLUME 9.5 fl (7.4-10.4); MONOCYTE # 0.9 10^3/ul (0.3-0.9); MONOCYTES % 7.5 % (0.0-11.0); NEUTROPHILS % 74.3 % (39.0-77.0); PLATELET COUNT 482 10^3/UL (140-415); RED BLOOD COUNT 5.35 10^6/ul (4.70-6.10); RED CELL DISTRIBUTION WIDTH 14.2 % (11.5-14.5); WHITE BLOOD COUNT 12.1 10^3/ul (4.8-10.8)
[2017-03-14 09:02] LABS: CALCIUM 9.1 mg/dl (8.4-10.2); CREATININE 1.14 mg/dl (0.61-1.24)
[2017-03-14 09:06] LABS: POTASSIUM 2.8 mmol/L (3.5-5.1)
[2017-03-14] MEDS ORDERED: POTASSIUM CHLORIDE (SR) 20 MEQ TAB PO STA (09:49)
[2017-03-14] MEDS ORDERED: hydrALAzine 20 MG INJ IV PRN (10:00)
[2017-03-14] MEDS: morphine 2 MG INJ IV PRN (13:41)
--- NOTE | 2017-03-14 13:48 | RADRPT ---
PROCEDURE: Ultrasound of the bilateral lower extremity venous system. CLINICAL INDICATION: Bilateral lower extremity swelling. TECHNIQUE: Fitzgerald scale with and without compression, color doppler, spectral doppler of the venous system of the bilateral lower extremities was performed. Venous augmentation maneuvers were utilized . COMPARISON: No prior studies are available for comparison. FINDINGS: RIGHT: Common femoral vein:Patent and compressible. Femoral vein:Patent and compressible. Popliteal vein:Patent and compressible. Visualized calf veins:Patent and compressible. Soft tissues:Normal LEFT: Common femoral vein:Patent and compressible. Femoral vein:Patent and compressible. Popliteal vein:Patent and compressible. Visualized calf veins:Patent and compressible. Soft tissues:Normal IMPRESSION: 1. No evidence of deep vein thrombosis. RPTAT: [facility] Physician Kunal Date Time Electronically viewed and signed by Physician Kunal on 03/14/2017 13:47 /
--- NOTE | 2017-03-14 14:03 | HP ---
DATE OF ADMISSION: 03/14/2017 CHIEF COMPLAINT: Shortness of breath and bilateral lower extremity swelling. HISTORY OF PRESENT ILLNESS: The patient is a 31-year-old gentleman known to me from previous admiss ion. The patient is with history of cardiomyopathy with ejection fraction of 25%. The patient was previously admitted for acute right frontal lobe and motor cortex nonhemorrhagic infarct and punctat e right occipital cortical infarct. The patient also has hypertension, obesity and amphetamine use. The patient stated that he was noted to have bilateral lower extremity swelling that got progressi vely worse over the last couple of days. The patient also stated that he had occasional shortness o f breath, however, denies any chest pain, denies any fevers, denies any nausea, vomiting, denies abril rrhea. In the emergency room, the patient underwent 12-lead EKG, which revealed normal sinus rhythm with no ST segment elevation or depression. The patient also underwent a chest x-ray which reveale d no evidence for acute cardiopulmonary disease. The patient was given IV Lasix in the emergency ro om with improvement in symptoms. The patient will be admitted for further evaluation and management to telemetry floor. PAST MEDICAL HISTORY: Per HPI. PAST SURGICAL HISTORY: The patient denies having any surgeries in the past. FAMILY HISTORY: Positive for history of cardiac problem in patient's mother. SOCIAL HISTORY: The patient uses crystal meth, last use yesterday. The patient denies any alcohol use. Every day tobacco user. ALLERGIES: NO KNOWN ALLERGIES. HOME MEDICATIONS: 1. Lasix 20 mg daily. 2. Lisinopril. 3. Atorvastatin. 4. Fenofibrate. 5. Coreg. 6. Aspirin. 7. Ativan. REVIEW OF SYSTEMS: A 12-point review of systems is negative unless what is mentioned in the HPI. PHYSICAL ASSESSMENT: GENERAL: Well-developed, obese male in no acute distress, awake, alert. VITAL SIGNS: Temperature is 98.2, pulse is 100, blood pressure is 166/86, respiratory rate 18, oxyg en saturation 98% on room air. HEENT: Head is atraumatic, normocephalic. Pupils equal, round, reactive to light and accommodation . Oral mucosa is pink and moist. NECK: Supple, no cervical lymphadenopathy, no thyromegaly. CHEST: Lungs clear bilaterally. There are no rhonchi, wheezes, rales noted. CARDIOVASCULAR: Normal S1, S2. No murmurs, gallops, clicks, rubs noted. ABDOMEN: Round, soft, nondistended, nontender. Bowel sounds present. There is no guarding, no harleen ound tenderness. EXTREMITIES: Bilateral lower extremities edema 2+. Pulses equal. SKIN: There is no rash, petechiae noted. NEUROLOGICAL: The patient is awake, alert and oriented x4. No focal deficits noted. Motor strengt h 5/5 in all extremities. LABORATORY DATA: On admission, CBC: White blood cells 14.1, hemoglobin 12.3, hematocrit 39.0, plat elets 465. Chemistry: Sodium is 139, potassium 3.6, chloride 108, carbon dioxide 25, anion gap 10, BUN is 23, creatinine 1.17. AST 52, ALT is 268, alkaline phosphatase is 105. BNP is 4210. ASSESSMENT AND PLAN: 1. Acute on chronic systolic congestive heart failure with ejection fraction of 25%. We will jesus nue patient on Lasix. Ask Dr. Rowell to see the patient in cardiology consultation. 2. Rule out acute coronary syndrome. Will obtain cardiac enzymes q.8 hours x3. Continue patient o n aspirin. 3. Active crystal meth user. relocation services specialist requested to provide information about rehabilitation services. 4. Hypertension. Will continue the patient on Coreg and lisinopril, hydralazine p.r.n. for systoli c blood pressure above 170. 5. Hyperlipidemia. We will obtain lipid panel. Continue atorvastatin and fenofibrate. 6. Hypokalemia. Today's potassium 2.8. Will replace potassium and monitor electrolytes. Will sta rt Pepcid for peptic ulcer disease prophylaxis and Lovenox for deep venous thrombosis prophylaxis. Further recommendations based on clinical course. Plan of care discussed with Dr. Liriano. Dictated By: JEANNA MYERS TEMPLE MARKER for ZACHARIAH LIRIANO MD SR/NTS Conf#: [id number] DID#: [id number] CC: ZACHARIAH LIRIANO MD;*EndCC*
--- NOTE | 2017-03-14 17:19 | CONS ---
Date/Time of Note Date/Time of Note DATE: 03/14/17 TIME: 17:15 Assessment/Plan Assessment/Plan Additional Assessment/Plan Acute Systolic CHF Meth User HTN Severe Cardiomyopathy -recehcek echo to see if EF if still 20% since 08/19 -continue lasix - excellent diuresis -continue cv meds -poor candidate for BiVAICD -no coronary work up necessary Consultation Date/Type/Reason Admit Date/Time Mar 14, 2017 at 02:02 Hx of Present Illness The patient is a 31-year-old gentleman known to me from previous admission. The patient is with history of cardiomyopathy with ejection fraction of 25%. The patient was previously admitted for acute right frontal lobe and motor cortex nonhemorrhagic infarct and punctate right occipital cortical infarct. The patient also has hypertension, obesity and amphetamine use. The patient stated that he was noted to have bilateral lower extremity swelling that got progressively worse over the last couple of days. The patient also stated that he had occasional shortness of breath, however, denies any chest pain, denies any fevers, denies any nausea, vomiting, denies diarrhea. In the emergency room , the patient underwent 12-lead EKG, which revealed normal sinus rhythm with no ST segment elevation or depression. The patient also underwent a chest x-ray which revealed no evidence for acute cardiopulmonary disease. The patient was given IV Lasix in the emergency room with improvement in symptoms. The patient will be admitted for further evaluation and management to telemetry floor. Past Surgical History Past Surgical Hx: no surgical history Social History Smoking Status: Current every day smoker Exam/Review of Systems Vital Signs Vitals Vital Signs Date Time Temp Pulse Resp B/P Pulse Ox O2 Delivery O2 Flow Rate FiO2 03/14/17 16:31 97.9 86 18 136/61 91 03/14/17 04:10 Room Air Intake and Output 03/13/17 03/13/17 03/14/17 15:00 23:00 07:00 Intake Total 500 ml Output Total 4150 ml Balance -3650 ml Results Result Diagram: 03/14/17 0757 03/14/17 0757 Results 24 hrs Laboratory Tests Test 03/14/17 00:30 03/14/17 07:57 White Blood Count 14.1 H 12.1 H Red Blood Count 4.69 L 5.35 Hemoglobin 12.3 L 13.8 L Hematocrit 39.0 L 44.6 Mean Corpuscular Volume 83.2 83.4 Mean Corpuscular Hemoglobin 26.2 L 25.8 L Mean Corpuscular Hemoglobin Concent 31.5 L 30.9 L Red Cell Distribution Width 14.3 14.2 Platelet Count 465 H 482 H Mean Platelet Volume 9.7 9.5 Neutrophils % 81.2 H 74.3 Lymphocytes % 10.3 L 14.7 L Monocytes % 6.5 7.5 Eosinophils % 0.9 2.1 Basophils % 0.5 0.7 Nucleated Red Blood Cells % 0.0 0.0 Neutrophils # 11.5 H 9.0 H Lymphocytes # 1.5 1.8 Monocytes # 0.9 0.9 Eosinophils # 0.1 0.3 Basophils # 0.1 0.1 Nucleated Red Blood Cells # 0.0 0.0 Sodium Level 139 140 Potassium Level 3.6 2.8 *L Chloride Level 108 103 Carbon Dioxide Level 25 29 Anion Gap 10 11 Blood Urea Nitrogen 23 H 22 H Creatinine 1.17 1.14 Glucose Level 103 117 Calcium Level 8.5 9.1 Total Bilirubin 1.0 Direct Bilirubin 0.00 Indirect Bilirubin 1.0 Aspartate Amino Transf (AST/SGOT) 56 H Alanine Aminotransferase (ALT/SGPT) 268 H Alkaline Phosphatase 105 Troponin I 0.082 B-Type Natriuretic Peptide 4210 H Total Protein 6.6 Albumin 3.2 L Globulin 3.40 H Albumin/Globulin Ratio 0.94 Medications Medications Current Medications Aspirin (Aspirin) 81 mg DAILY PO Last administered on 03/14/17 08:35; Admin Dose 81 MG; Start 03/14/17 at 09:00 Atorvastatin Calcium (Lipitor) 40 mg HS PO ; Start 03/14/17 at 21:00 Carvedilol (Coreg) 12.5 mg BID PO Last administered on 03/14/17 08:35; Admin Dose 12.5 MG; Start 03/14/17 at 09:00 Clonidine (Catapres) 0.1 mg Q8 PO Last administered on 03/14/17 13:41; Admin Dose 0.1 MG; Start 03/14/17 at 07:00 Fenofibrate (Tricor) 48 mg DAILY PO Last administered on 03/14/17 08:34; Admin Dose 48 MG; Start 03/14/17 at 09:00 Lisinopril (Zestril) 20 mg BID PO Last administered on 03/14/17 08:35; Admin Dose 20 MG; Start 03/14/17 at 09:00 Potassium Chloride (Klor-Con 20) 20 meq DAILY PO Last administered on 08:34; Admin Dose 20 MEQ; Start 03/14/17 at 09:00 Influenza Virus Vaccine (Fluzone) 0.5 ml ONCE ONCE IM* ; Start 03/15/17 at 09: 00; Stop 03/15/17 at 09:01 Hydralazine HCl (Apresoline) 10 mg Q4H PRN IV SBP >170 Last administered on 10:07; Admin Dose 10 MG; Start 03/14/17 at 10:00 Morphine Sulfate (morphine) 2 mg Q4H PRN IV PAIN LEVEL 7-10 Last administered on 03/14/17 13:41; Admin Dose 2 MG; Start 03/14/17 at 12:30 Famotidine (Pepcid) 20 mg DAILY PO ; Start 03/15/17 at 09:00 Enoxaparin Sodium (Lovenox) 30 mg DAILY SC ; Start 03/15/17 at 09:00 Lorazepam (Ativan) 1 mg Q6H PRN PO ANXIETY; Start 03/14/17 at 20:30 Nicotine (Nicoderm 14 Mg/ 24hr) 1 patch DAILY TRANSDERM ; Start 03/15/17 at 09: 00 OTILIA LONDON MD Mar 14, 2017 17:19
[2017-03-14] MEDS: ATORVASTATIN 40 MG TAB PO SCH (21:00)
[2017-03-15] VITALS (11 sets, daily range): BP systolic 109–164; BP diastolic 53–96; PULSE 72–91; RESP 20
[2017-03-15] MEDS: LISINOPRIL 20 MG TAB PO SCH ×3 (00:43→21:07)
[2017-03-15] MEDS: ATORVASTATIN 40 MG TAB PO SCH ×2 (00:43→21:06)
[2017-03-15] MEDS: FUROSEMIDE 20 MG INJ IV SCH ×2 (05:19→17:44)
[2017-03-15 08:15] LABS: BASOPHIL # 0.1 10^3/ul (0.0-0.1); BASOPHILS % 0.7 % (0.0-2.0); EOSINOPHILS # 0.4 10^3/ul (0.0-0.5); EOSINOPHILS % 3.7 % (0.0-7.0); HEMATOCRIT 41.3 % (42.0-52.0); HEMOGLOBIN 12.5 g/dl (14.0-18.0); LYMPHOCYTES # 1.5 10^3/ul (0.8-2.9); LYMPHOCYTES % 13.4 % (15.0-51.0); MEAN CORPUSCULAR HEMOGLOBIN 25.4 pg (29.0-33.0); MEAN CORPUSCULAR HGB CONC 30.3 g/dl (32.0-37.0); MEAN CORPUSCULAR VOLUME 83.9 fl (82.0-101.0); MEAN PLATELET VOLUME 9.6 fl (7.4-10.4); MONOCYTE # 0.8 10^3/ul (0.3-0.9); MONOCYTES % 6.6 % (0.0-11.0); NEUTROPHIL # 8.6 10^3/ul (1.6-7.5); NEUTROPHILS % 75.2 % (39.0-77.0); PLATELET COUNT 451 10^3/UL (140-415); RED BLOOD COUNT 4.92 10^6/ul (4.70-6.10); RED CELL DISTRIBUTION WIDTH 14.4 % (11.5-14.5); WHITE BLOOD COUNT 11.4 10^3/ul (4.8-10.8)
[2017-03-15 08:44] LABS: CALCIUM 8.4 mg/dl (8.4-10.2); CREATININE 0.99 mg/dl (0.61-1.24); POTASSIUM 3.5 mmol/L (3.5-5.1)
--- NOTE | 2017-03-15 08:50 | PN ---
Date/Time of Note Date/Time of Note DATE: 03/15/17 TIME: 08:50 Assessment/Plan VTE Prophylaxis VTE Prophylaxis Intervention: SCD's Lines/Catheters IV Catheter Type (from Nrs): Saline Lock Urinary Cath still in place: No Assessment/Plan Assessment/Plan Acute Systolic CHF Meth User HTN Severe Cardiomyopathy -recehcek echo to see if EF if still 20% since 08/19 -will review -continue lasix - excellent diuresis -continue cv meds -poor candidate for BiVAICD -no coronary work up necessary Subjective 24 Hr Interval Summary Free Text/Dictation the patient improved Exam/Review of Systems Vital Signs Vitals Vital Signs Date Time Temp Pulse Resp B/P Pulse Ox O2 Delivery O2 Flow Rate FiO2 03/15/17 08:21 74 03/15/17 07:58 98.0 20 115/57 99 03/14/17 04:10 Room Air Intake and Output 03/14/17 03/14/17 03/15/17 15:00 23:00 07:00 Intake Total 800 ml 500 ml Balance 800 ml 500 ml Results Result Diagram: 03/15/17 0741 03/15/17 0741 Results 24 hrs Laboratory Tests Test 03/14/17 19:10 03/15/17 00:35 03/15/17 07:41 Troponin I 0.057 0.058 White Blood Count 11.4 H Red Blood Count 4.92 Hemoglobin 12.5 L Hematocrit 41.3 L Mean Corpuscular Volume 83.9 Mean Corpuscular Hemoglobin 25.4 L Mean Corpuscular Hemoglobin Concent 30.3 L Red Cell Distribution Width 14.4 Platelet Count 451 H Mean Platelet Volume 9.6 Neutrophils % 75.2 Lymphocytes % 13.4 L Monocytes % 6.6 Eosinophils % 3.7 Basophils % 0.7 Nucleated Red Blood Cells % 0.0 Neutrophils # 8.6 H Lymphocytes # 1.5 Monocytes # 0.8 Eosinophils # 0.4 Basophils # 0.1 Nucleated Red Blood Cells # 0.0 Sodium Level 138 Potassium Level 3.5 Chloride Level 106 Carbon Dioxide Level 27 Anion Gap 9 Blood Urea Nitrogen 22 H Creatinine 0.99 Glucose Level 94 Calcium Level 8.4 Triglycerides Level 72 Cholesterol Level 101 LDL Cholesterol, Calculated 67 HDL Cholesterol 20 L Cholesterol/HDL Ratio 5.0 Medications Medications Current Medications Aspirin (Aspirin) 81 mg DAILY PO Last administered on 03/14/17t 08:35; Admin Dose 81 MG; Start 03/14/17 at 09:00 Atorvastatin Calcium (Lipitor) 40 mg HS PO Last administered on 03/15/17 00: 43; Admin Dose 40 MG; Start 03/14/17 at 21:00 Carvedilol (Coreg) 12.5 mg BID PO Last administered on 03/15/17 00:43; Admin Dose 12.5 MG; Start 03/14/17 at 09:00 Clonidine (Catapres) 0.1 mg Q8 PO Last administered on 03/15/17 00:43; Admin Dose 0.1 MG; Start 03/14/17 at 07:00 Fenofibrate (Tricor) 48 mg DAILY PO Last administered on 03/14/17 08:34; Admin Dose 48 MG; Start 03/14/17 at 09:00 Lisinopril (Zestril) 20 mg BID PO Last administered on 03/15/17 00:43; Admin Dose 20 MG; Start 03/14/17 at 09:00 Potassium Chloride (Klor-Con 20) 20 meq DAILY PO Last administered on 08:34; Admin Dose 20 MEQ; Start 03/14/17 at 09:00 Influenza Virus Vaccine (Fluzone) 0.5 ml ONCE ONCE IM* ; Start 03/15/17 at 09: 00; Stop 03/15/17 at 09:01 Hydralazine HCl (Apresoline) 10 mg Q4H PRN IV SBP >170 Last administered on 10:07; Admin Dose 10 MG; Start 03/14/17 at 10:00 Morphine Sulfate (morphine) 2 mg Q4H PRN IV PAIN LEVEL 7-10 Last administered on 03/14/17 13:41; Admin Dose 2 MG; Start 03/14/17 at 12:30 Famotidine (Pepcid) 20 mg DAILY PO ; Start 03/15/17 at 09:00 Enoxaparin Sodium (Lovenox) 30 mg DAILY SC ; Start 03/15/17 at 09:00 Lorazepam (Ativan) 1 mg Q6H PRN PO ANXIETY; Start 03/14/17 at 20:30 Nicotine (Nicoderm 14 Mg/ 24hr) 1 patch DAILY TRANSDERM ; Start 03/15/17 at 09: 00 OTILIA LONDON MD Mar 15, 2017 08:50
[2017-03-15] MEDS ORDERED: INFLUENZA VIRUS VACCINE 0.5 ML (DISPENSING) IM* ONE (09:00)
[2017-03-15] MEDS: FENOFIBRATE 48 MG TAB PO SCH (09:20)
[2017-03-15] MEDS: FAMOTIDINE 20 MG TAB PO SCH (09:20)
[2017-03-15] MEDS: POTASSIUM CHLORIDE (SR) 20 MEQ TAB PO SCH (09:21)
[2017-03-15] MEDS: ASPIRIN 81 MG TAB PO SCH (09:22)
[2017-03-15] MEDS: NICOTINE (14 MG/24 HR) PATCH TRANSDERM SCH (09:23)
[2017-03-15] MEDS: ENOXAPARIN 30 MG/0.3 ML SYG SC SCH (09:24)
--- NOTE | 2017-03-15 17:45 | PN ---
Date/Time of Note Date/Time of Note DATE: 03/15/17 TIME: 17:42 Assessment/Plan VTE Prophylaxis VTE Prophylaxis Intervention: SCD's Lines/Catheters [facility] Saline Lock Urinary Cath still in place: No Assessment/Plan Chief Complaint/Hosp Course Patient denies any shortness of breath denies chest pain. Sinus rhythm with PVCs. Continue diuresis monitor electrolytes. Problems: Assessment/Plan 1. Acute on chronic systolic congestive heart failure with ejection fraction of 25%. Continue patient on Lasix. Dr. Rowell is following in cardiology consultation. Follow-up on 2D echo 2. Rule out acute coronary syndrome. Troponin is negative 3 3. Active crystal meth user. child protective services social worker requested to provide information about rehabilitation services. 4. Hypertension. Cntinue the patient on Coreg and lisinopril, hydralazine p.r.n. for systolic blood pressure above 170. 5. Hyperlipidemia. Continue atorvastatin and fenofibrate. Further recommendations based on clinical course. Plan of care discussed with Dr. Liriano. Exam/Review of Systems Vital Signs Vitals Vital Signs Date Time Temp Pulse Resp B/P Pulse Ox O2 Delivery O2 Flow Rate FiO2 03/15/17 16:16 91 03/15/17 15:57 98.7 20 149/76 100 03/14/17 04:10 Room Air Intake and Output 03/14/17 03/14/17 03/15/17 15:00 23:00 07:00 Intake Total 800 ml 500 ml Balance 800 ml 500 ml Exam Constitutional: alert, oriented Head: normocephalic Neck: supple Respiratory: normal air movement Cardiovascular: nl pulses, regular rate and rhythm Gastrointestinal: non-tender, soft Extremities: normal pulses Results Result Diagram: 03/15/17 0741 03/15/17 0741 Results 24 hrs Laboratory Tests Test 03/14/17 19:10 03/15/17 00:35 03/15/17 07:41 Troponin I 0.057 0.058 White Blood Count 11.4 H Red Blood Count 4.92 Hemoglobin 12.5 L Hematocrit 41.3 L Mean Corpuscular Volume 83.9 Mean Corpuscular Hemoglobin 25.4 L Mean Corpuscular Hemoglobin Concent 30.3 L Red Cell Distribution Width 14.4 Platelet Count 451 H Mean Platelet Volume 9.6 Neutrophils % 75.2 Lymphocytes % 13.4 L Monocytes % 6.6 Eosinophils % 3.7 Basophils % 0.7 Nucleated Red Blood Cells % 0.0 Neutrophils # 8.6 H Lymphocytes # 1.5 Monocytes # 0.8 Eosinophils # 0.4 Basophils # 0.1 Nucleated Red Blood Cells # 0.0 Sodium Level 138 Potassium Level 3.5 Chloride Level 106 Carbon Dioxide Level 27 Anion Gap 9 Blood Urea Nitrogen 22 H Creatinine 0.99 Glucose Level 94 Calcium Level 8.4 Triglycerides Level 72 Cholesterol Level 101 LDL Cholesterol, Calculated 67 HDL Cholesterol 20 L Cholesterol/HDL Ratio 5.0 Medications Medications Current Medications Aspirin (Aspirin) 81 mg DAILY PO Last administered on 03/15/17 09:22; Admin Dose 81 MG; Start 03/14/17 at 09:00 Atorvastatin Calcium (Lipitor) 40 mg HS PO Last administered on 03/15/17 00: 43; Admin Dose 40 MG; Start 03/14/17 at 21:00 Carvedilol (Coreg) 12.5 mg BID PO Last administered on 03/15/17 09:21; Admin Dose 12.5 MG; Start 03/14/17 at 09:00 Clonidine (Catapres) 0.1 mg Q8 PO Last administered on 03/15/17 13:18; Admin Dose 0.1 MG; Start 03/14/17 at 07:00 Fenofibrate (Tricor) 48 mg DAILY PO Last administered on 03/15/17 09:20; Admin Dose 48 MG; Start 03/14/17 at 09:00 Lisinopril (Zestril) 20 mg BID PO Last administered on 03/15/17 09:21; Admin Dose 20 MG; Start 03/14/17 at 09:00 Potassium Chloride (Klor-Con 20) 20 meq DAILY PO Last administered on 09:21; Admin Dose 20 MEQ; Start 03/14/17 at 09:00 Hydralazine HCl (Apresoline) 10 mg Q4H PRN IV SBP >170 Last administered on 10:07; Admin Dose 10 MG; Start 03/14/17 at 10:00 Morphine Sulfate (morphine) 2 mg Q4H PRN IV PAIN LEVEL 7-10 Last administered on 03/14/17 13:41; Admin Dose 2 MG; Start 03/14/17 at 12:30 Famotidine (Pepcid) 20 mg DAILY PO Last administered on 03/15/17 09:20; Admin Dose 20 MG; Start 03/15/17 at 09:00 Enoxaparin Sodium (Lovenox) 30 mg DAILY SC Last administered on 03/15/17 09: 24; Admin Dose 30 MG; Start 03/15/17 at 09:00 Lorazepam (Ativan) 1 mg Q6H PRN PO ANXIETY Last administered on 03/15/17 13: 17; Admin Dose 1 MG; Start 03/14/17 at 20:30 Nicotine (Nicoderm 14 Mg/ 24hr) 1 patch DAILY TRANSDERM Last administered on 09:23; Admin Dose 1 PATCH; Start 03/15/17 at 09:00 JEANNA MYERS Mar 15, 2017 17:45
[2017-03-15] MEDS: morphine 2 MG INJ IV PRN (21:06)
[2017-03-16] VITALS (10 sets, daily range): BP systolic 138–158; BP diastolic 76–94; PULSE 85–92; RESP 18–20
[2017-03-16] MEDS: morphine 2 MG INJ IV PRN ×2 (04:18→15:13)
[2017-03-16] MEDS: FUROSEMIDE 20 MG INJ IV SCH (04:18)
[2017-03-16 08:47] LABS: BASOPHIL # 0.1 10^3/ul (0.0-0.1); BASOPHILS % 0.8 % (0.0-2.0); EOSINOPHILS # 0.4 10^3/ul (0.0-0.5); EOSINOPHILS % 3.3 % (0.0-7.0); HEMATOCRIT 41.4 % (42.0-52.0); HEMOGLOBIN 12.5 g/dl (14.0-18.0); LYMPHOCYTES # 1.6 10^3/ul (0.8-2.9); MEAN CORPUSCULAR HEMOGLOBIN 25.5 pg (29.0-33.0); MEAN CORPUSCULAR HGB CONC 30.2 g/dl (32.0-37.0); MEAN CORPUSCULAR VOLUME 84.3 fl (82.0-101.0); MEAN PLATELET VOLUME 9.7 fl (7.4-10.4); MONOCYTE # 0.9 10^3/ul (0.3-0.9); MONOCYTES % 8.5 % (0.0-11.0); NEUTROPHIL # 7.6 10^3/ul (1.6-7.5); NEUTROPHILS % 71.7 % (39.0-77.0); PLATELET COUNT 475 10^3/UL (140-415); RED BLOOD COUNT 4.91 10^6/ul (4.70-6.10); RED CELL DISTRIBUTION WIDTH 13.9 % (11.5-14.5); WHITE BLOOD COUNT 10.6 10^3/ul (4.8-10.8)
--- NOTE | 2017-03-16 09:03 | RADRPT ---
Echocardiogram Report Patient Name: CYN GOODMAN Gender: Male Date: 1985 Study Date: 15-Mar-2017 Seal Extrusion Operator: Location: 5550-A Ref. Physician: OTILIA LONDON Quality: Good Procedures: Transthoracic echocardiogram with complete 2D, M-Mode, and doppler examination. Indications: Congestive Heart Failure. 2D/M Mode Doppler Measurement Value Normal Ranges Measurement Value Normal Ranges AoR Diam MM 2.8 cm HERMINIA Vmax 2.4 cm2 LA/Ao MM 1.9 HERMINIA VTI 2.4 cm2 LA Dimen MM 5.4 cm AV Peak Dexter 1.3 m/sec LVIDd 2D 6.4 3.5 - 5.6 cm AV Peak PG 6.4 mmHg LVIDs 2D 5.9 2.1 - 4.1 cm LVOT Peak Dexter 0.9 m/sec LVPWd 2D 1.1 0.6 - 1.1 cm LVOT Peak PG 3.0 mmHg IVSd 2D 1.1 0.6 - 1.1 cm MV E Peak Dexter 0.8 m/sec EDV 2D 212.2 cm3 MV A Peak Dexter 0.4 m/sec ESV 2D 200.8 cm3 MV E/A 2.1 LVOT Diam 2.1 cm MV Decel Time 162 msec MV Decel Gila 5 MV E/A 2.1 TR Peak Dexter 2.5 m/sec TR Peak PG 25.0 mmHg Findings Left Ventricle: Moderate enlargement of left ventricle cavity. Severe global left ventricular systolic dysfunction. Severe left ventricular systolic dysfunction. Ejection fraction is visually estimated at 20 %. Right Ventricle: Normal right ventricular size. Normal right ventricular systolic function. Left Atrium: There is severe enlargement of left atrium. Right Atrium: There is mild enlargement of right atrium. Mitral Valve: Moderate mitral valve regurgitation. Aortic Valve: Normal appearance of the aortic valve. Tricuspid Valve: Estimated peak PA systolic pressure 33 mmHg. Pulmonic Valve: Normal pulmonic valve appearance. Pericardium: Possible trace right pericardial effusion. Aorta: Normal aortic root. IVC: Normal size and normal respiratory collapse consistent with normal right atrial pressure. Conclusions 1.Moderate enlargement of left ventricle cavity. Severe global left ventricular systolic dysfunction. Severe left ventricular systolic dysfunction. Ejection fraction is visually estimated at 20 %. 2.Moderate mitral valve regurgitation. 3.Normal appearance of the aortic valve. 4.Estimated peak PA systolic pressure 33 mmHg. 5.Normal pulmonic valve appearance. 6.Possible trace right pericardial effusion. Electronically Signed By: Otilia London 16-Mar-2017 09:02:43 -0700 Patient Name: CYN GOODMAN Study Date: 15-Mar-2017 [id number]
[2017-03-16 09:28] LABS: CALCIUM 8.2 mg/dl (8.4-10.2); CREATININE 0.98 mg/dl (0.61-1.24); POTASSIUM 3.7 mmol/L (3.5-5.1)
[2017-03-16] MEDS: POTASSIUM CHLORIDE (SR) 20 MEQ TAB PO SCH (10:08)
[2017-03-16] MEDS: LISINOPRIL 20 MG TAB PO SCH (10:08)
[2017-03-16] MEDS: FAMOTIDINE 20 MG TAB PO SCH (10:09)
[2017-03-16] MEDS: ASPIRIN 81 MG TAB PO SCH (10:09)
[2017-03-16] MEDS: ENOXAPARIN 30 MG/0.3 ML SYG SC SCH (10:10)
[2017-03-16] MEDS: NICOTINE (14 MG/24 HR) PATCH TRANSDERM SCH (10:10)
[2017-03-16] MEDS: FENOFIBRATE 48 MG TAB PO SCH (10:11)
--- NOTE | 2017-03-16 13:00 | PN ---
Date/Time of Note Date/Time of Note DATE: 03/16/17 TIME: 12:59 Assessment/Plan VTE Prophylaxis VTE Prophylaxis Intervention: SCD's Lines/Catheters IV Catheter Type (from Nrsg): Saline Lock Urinary Cath still in place: No Assessment/Plan Assessment/Plan Acute Systolic CHF Meth User HTN Severe Cardiomyopathy -echo - EF 20% -continue lasix - excellent diuresis > change to po lasix/kcl -continue cv meds -poor candidate for BiVAICD -no coronary work up necessary -[facility] Subjective 24 Hr Interval Summary Free Text/Dictation The patient with no chest pain Exam/Review of Systems Vital Signs Vitals Vital Signs Date Time Temp Pulse Resp B/P Pulse Ox O2 Delivery O2 Flow Rate FiO2 03/16/17 11:54 98.9 88 20 158/79 98 03/14/17 04:10 Room Air Intake and Output 03/15/17 03/15/17 03/16/17 15:00 23:00 07:00 Intake Total 800 ml 800 ml Balance 800 ml 800 ml Results Result Diagram: 03/16/1738 03/16/17 0738 Results 24 hrs Laboratory Tests Test 03/16/17 07:38 White Blood Count 10.6 Red Blood Count 4.91 Hemoglobin 12.5 L Hematocrit 41.4 L Mean Corpuscular Volume 84.3 Mean Corpuscular Hemoglobin 25.5 L Mean Corpuscular Hemoglobin Concent 30.2 L Red Cell Distribution Width 13.9 Platelet Count 475 H Mean Platelet Volume 9.7 Neutrophils % 71.7 Lymphocytes % 15.0 Monocytes % 8.5 Eosinophils % 3.3 Basophils % 0.8 Nucleated Red Blood Cells % 0.0 Neutrophils # 7.6 H Lymphocytes # 1.6 Monocytes # 0.9 Eosinophils # 0.4 Basophils # 0.1 Nucleated Red Blood Cells # 0.0 Sodium Level 139 Potassium Level 3.7 Chloride Level 107 Carbon Dioxide Level 29 Anion Gap 7 L Blood Urea Nitrogen 22 H Creatinine 0.98 Glucose Level 89 Calcium Level 8.2 L Medications Medications Current Medications Aspirin (Aspirin) 81 mg DAILY PO Last administered on 03/16/17 10:09; Admin Dose 81 MG; Start 03/14/17 at 09:00 Atorvastatin Calcium (Lipitor) 40 mg HS PO Last administered on 03/15/17 21: 06; Admin Dose 40 MG; Start 03/14/17 at 21:00 Carvedilol (Coreg) 12.5 mg BID PO Last administered on 03/16/17 10:10; Admin Dose 12.5 MG; Start 03/14/17 at 09:00 Clonidine (Catapres) 0.1 mg Q8 PO Last administered on 03/16/17 04:18; Admin Dose 0.1 MG; Start 03/14/17 at 07:00 Fenofibrate (Tricor) 48 mg DAILY PO Last administered on 03/16/17 10:11; Admin Dose 48 MG; Start 03/14/17 at 09:00 Lisinopril (Zestril) 20 mg BID PO Last administered on 03/16/17 10:08; Admin Dose 20 MG; Start 03/14/17 at 09:00 Potassium Chloride (Klor-Con 20) 20 meq DAILY PO Last administered on 10:08; Admin Dose 20 MEQ; Start 03/14/17 at 09:00 Hydralazine HCl (Apresoline) 10 mg Q4H PRN IV SBP >170 Last administered on 10:07; Admin Dose 10 MG; Start 03/14/17 at 10:00 Morphine Sulfate (morphine) 2 mg Q4H PRN IV PAIN LEVEL 7-10 Last administered on 03/16/17 04:18; Admin Dose 2 MG; Start 03/14/17 at 12:30 Famotidine (Pepcid) 20 mg DAILY PO Last administered on 03/16/17 10:09; Admin Dose 20 MG; Start 03/15/17 at 09:00 Enoxaparin Sodium (Lovenox) 30 mg DAILY SC Last administered on 03/16/17 10: 10; Admin Dose 30 MG; Start 03/15/17 at 09:00 Lorazepam (Ativan) 1 mg Q6H PRN PO ANXIETY Last administered on 03/15/17 13: 17; Admin Dose 1 MG; Start 03/14/17 at 20:30 Nicotine (Nicoderm 14 Mg/ 24hr) 1 patch DAILY TRANSDERM Last administered on 10:10; Admin Dose 1 PATCH; Start 03/15/17 at 09:00 OTILIA LONDON MD Mar 16, 2017 13:00
--- NOTE | 2017-03-16 17:08 | PDOCDIS ---
Discharge Instructions CONDITION Patient Condition: Stable HOME CARE INSTRUCTIONS: Special Diet: Cardiac ACTIVITY: Activity Restrictions: Slowly Increase Activity Rest between Activity Do not Drive Do not operate Machinery Do not operate Power Tool Avoid Heavy Housework Bathing Restrictions: Sponge Bath FOLLOW UP/APPOINTMENTS Follow-up Plan FU with primary MD X 1 WEEK FU with cardiology as recommended. Call 911 or go to the nearest hospital if symptoms get worse- patient verbalized understanding dc instructions. Donald Liriano/family/staff DARRICK ZULUAGA Mar 16, 2017 17:08
[2017-03-16] MEDS ORDERED: LAS20 PO (17:11)
[2017-03-16] MEDS ORDERED: FAMO20TA18 PO (17:11)
[2017-03-16] MEDS ORDERED: POTA10TA37 PO (17:11)
[2017-03-17] MEDS ORDERED: POTASSIUM CHLORIDE (SR) 10 MEQ TAB PO SCH (09:00)
[2017-03-17] MEDS ORDERED: FUROSEMIDE 20 MG TAB PO SCH (09:00)
== END 2017-03-16 18:49 | disposition home or self-care (01) ==
LOC: E/R 23:38 → MS4 03-14 02:02 → UNDOADMOB 03-14 03:48 → MS4 03-14 03:48
PROVIDERS: ADMIT Internal Medicine; ATTEND Internal Medicine
DX: I11.0 Hypertensive heart disease with heart failure (principal); I50.23 Acute on chronic systolic (congestive) heart failure; R06.02 Shortness of breath; M79.89 Other specified soft tissue disorders; Z86.73 Personal history of transient ischemic attack (TIA), and cerebral infarction without residual deficits; I50.9 Heart failure, unspecified; F15.90 Other stimulant use, unspecified, uncomplicated; E78.5 Hyperlipidemia, unspecified; E87.6 Hypokalemia; I42.9 Cardiomyopathy, unspecified
CPT/HCPCS: 36415; 71010; 80048; 80053; 80061; 83880; 84484; 85025; 90686; 93005; 93306; 93970; 96374; J0360; J1650; J1940; J2270; Z7500; Z7502; Z7610; G0378

== ENCOUNTER 2017-04-17 19:38 | Inpatient (IN) | payer OTHER ==
[~2017-04-17] VITALS: Ht 185.4 cm; Wt 131.3 kg
[~2017-04-17 19:38] MED LIST changes: -CIPR500T4 PO; +FAMO20TA18 PO; +POTA10TA37 PO
[2017-04-17 23:31] LABS: BASOPHIL # 0.1 10^3/ul (0.0-0.1); BASOPHILS % 0.5 % (0.0-2.0); EOSINOPHILS # 0.2 10^3/ul (0.0-0.5); EOSINOPHILS % 1.8 % (0.0-7.0); HEMATOCRIT 38.7 % (42.0-52.0); HEMOGLOBIN 11.6 g/dl (14.0-18.0); LYMPHOCYTES # 1.8 10^3/ul (0.8-2.9); LYMPHOCYTES % 16.2 % (15.0-51.0); MEAN CORPUSCULAR HEMOGLOBIN 24.1 pg (29.0-33.0); MEAN CORPUSCULAR VOLUME 80.5 fl (82.0-101.0); MEAN PLATELET VOLUME 9.6 fl (7.4-10.4); MONOCYTES % 8.9 % (0.0-11.0); NEUTROPHIL # 7.8 10^3/ul (1.6-7.5); NEUTROPHILS % 72.2 % (39.0-77.0); PLATELET COUNT 386 10^3/UL (140-415); RED BLOOD COUNT 4.81 10^6/ul (4.70-6.10); RED CELL DISTRIBUTION WIDTH 15.3 % (11.5-14.5); WHITE BLOOD COUNT 10.8 10^3/ul (4.8-10.8)
[2017-04-17 23:51] LABS: ALBUMIN 2.8 g/dl (3.3-4.9); ALBUMIN/GLOBULIN RATIO 0.93; BILIRUBIN,INDIRECT 0.7 mg/dl (0-1.1); BILIRUBIN,TOTAL 0.7 mg/dl (0.2-1.3); CREATININE 1.05 mg/dl (0.61-1.24); POTASSIUM 4.1 mmol/L (3.5-5.1); TOTAL PROTEIN 5.8 g/dl (6.1-8.1)
[2017-04-18] VITALS (8 sets, daily range): BP systolic 124–180; BP diastolic 58–131; PULSE 83–97; RESP 16–20; TEMP 97.4; Ht 185.4 cm; Wt 131.3 kg
[2017-04-18 00:02] LABS: TROPONIN-I 0.108 ng/ml (0.00-0.12)
--- NOTE | 2017-04-18 00:31 | RADRPT ---
PROCEDURE: CHEST - 1 VIEW CLINICAL INDICATION: 31-year-old male with chest pain. TECHNIQUE: A single frontal AP semi-erect view of the chest was performed. The images were review ed on a PACS workstation. COMPARISON: Chest x-ray March 14, 2017. FINDINGS: The cardiomediastinal silhouette is markedly enlarged. There is mild pulmonary vascular congestion. There is no evidence for an infiltrate. There is no evidence for pneumothorax. There is an old rig ht clavicular fracture deformity again noted. IMPRESSION: 1. Marked cardiomegaly. 2. Mild pulmonary vascular congestion. 3. Old right clavicular fracture deformity. .Madan Lam MD, MD Date Time Electronically viewed and signed by .Madan Lam MD, on 04/18/2017 00:30 .M/
--- NOTE | 2017-04-18 00:32 | ERD ---
ER Documentation Chief Complaint Chief Complaint pain with inspiration for 2 days HPI 31-year-old male with shortness of breath for the past 2 days. 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 Patient says the shortness has been getting progressively worse over the past 2 days and he also has chest pain that is mild to moderate in intensity, substernal pressure-like with no exacerbating or alleviating factors. No fevers no chills. No nausea no vomiting. No diaphoresis. Positive orthopnea. Positive dyspnea on exertion. ROS All systems reviewed and are negative except as per history of present illness. Medications Home Meds Active Scripts Potassium Chloride* (K-Dur*) 10 Meq Tab.prt.sr, 10 MEQ PO DAILY for 30 Days Prov:DARRICK ZULUAGA 03/16/17 Furosemide (Lasix) 20 Mg Tab, 20 MG PO DAILY for 30 Days, TAB Prov:DARRICK ZULUAGA 03/16/17 Famotidine* (Famotidine*) 20 Mg Tablet, 20 MG PO DAILY for 30 Days, TAB Prov:DARRICK ZULUAGA 03/16/17 Furosemide* (Lasix*) 20 Mg Tablet, 20 MG PO DAILY, #5 TAB Prov:CARISSA NUNEZ PA-C 03/03/17 Lisinopril* (Lisinopril*) 20 Mg Tablet, 20 MG PO BID for 30 Days, TAB Prov:JEANNA MYERS 09/02/16 Atorvastatin* (Atorvastatin*) 40 Mg Tablet, 40 MG PO HS for 30 Days, TAB Prov:JEANNA MYERS 09/02/16 Fenofibrate Nanocrystallized* (Fenofibrate*) 48 Mg Tablet, 48 MG PO DAILY for 30 Days, TAB Prov:JEANNA MYERS 09/02/16 Carvedilol* (Carvedilol*) 12.5 Mg Tablet, 12.5 MG PO BID for 30 Days, TAB Prov:JEANNA MYERS 09/02/16 Aspirin (Aspirin) 81 Mg Chew, 81 MG PO DAILY for 30 Days, TAB Prov:JEANNA MYERS 09/02/16 Lorazepam* (Lorazepam*) 1 Mg Tablet, 1 MG PO HS Y for ANXIETY, #20 TAB Prov:XAVIER HARVEY NP 10/20/15 Reported Medications Clonidine Hcl* (Clonidine Hcl*) 0.1 Mg Tab, 0.1 MG PO Q8, TAB 08/23/16 Allergies Allergies: Coded Allergies: No Known Allergy (Unverified , 04/17/17) PMhx/Soc Medical and Surgical Hx: pt denies Surgical Hx History of Surgery: No Anesthesia Reaction: No Hx Neurological Disorder: Yes (STROKE) Hx Respiratory Disorders: Yes Hx Cardiac Disorders: Yes (HTN , HIGH CHOLESTEROL) Hx Psychiatric Problems: No Hx Miscellaneous Medical Probl: No Hx Alcohol Use: Yes (social ) Hx Substance Use: Yes (meth) Hx Tobacco Use: Yes Smoking Status: Current every day smoker Physical Exam Vitals Vital Signs Date Time Temp Pulse Resp B/P Pulse Ox O2 Delivery O2 Flow Rate FiO2 04/17/17 20:16 97.3 82 16 168/119 99 Physical Exam Const: [] Head: Atraumatic Eyes: Normal Conjunctiva ENT: Normal External Ears, Nose and Mouth. Neck: Full range of motion..~ No meningismus. Resp: Clear to auscultation bilaterally Cardio: Regular rate and rhythm, no murmurs Abd: Soft, non tender, non distended. Normal bowel sounds Skin: No petechiae or rashes Back: No midline or flank tenderness Ext: No cyanosis, or edema Neur: Awake and alert Psych: Normal Mood and Affect Result Diagram: 04/17/17231604/17/172316 Results 24 hrs Laboratory Tests Test 04/17/17 23:17 White Blood Count 10.810^3/ul Red Blood Count 4.8110^6/ul Hemoglobin 11.6g/dl Hematocrit 38.7% Mean Corpuscular Volume 80.5fl Mean Corpuscular Hemoglobin 24.1pg Mean Corpuscular Hemoglobin Concent 30.0g/dl Red Cell Distribution Width 15.3% Platelet Count 14463^3/UL Mean Platelet Volume 9.6fl Neutrophils % 72.2% Lymphocytes % 16.2% Monocytes % 8.9% Eosinophils % 1.8% Basophils % 0.5% Nucleated Red Blood Cells % 0.0/100WBC Neutrophils # 7.810^3/ul Lymphocytes # 1.810^3/ul Monocytes # 1.010^3/ul Eosinophils # 0.210^3/ul Basophils # 0.110^3/ul Nucleated Red Blood Cells # 0.010^3/ul Sodium Level 140mmol/L Potassium Level 4.1mmol/L Chloride Level 106mmol/L Carbon Dioxide Level 27mmol/L Anion Gap 11 Blood Urea Nitrogen 29mg/dl Creatinine 1.05mg/dl Glucose Level 103mg/dl Calcium Level 8.0mg/dl Total Bilirubin 0.7mg/dl Direct Bilirubin 0.00mg/dl Indirect Bilirubin 0.7mg/dl Aspartate Amino Transf (AST/SGOT) 38IU/L Alanine Aminotransferase (ALT/SGPT) 73IU/L Alkaline Phosphatase 86IU/L Troponin I 0.108ng/ml B-Type Natriuretic Peptide 2950PG/ML Total Protein 5.8g/dl Albumin 2.8g/dl Globulin 3.00g/dl Albumin/Globulin Ratio 0.93 Procedures/MDM EKG: Rate/Rhythm: [Normal Sinus Rhythm] QRS, ST, T-waves: [No changes consistent w/ acute ischemia] Impression: [No evidence of ischemia or arrhythmia] Chest X-ray 1V Interpreted by me: Soft Tissue: No acute abnormalities Bones: No acute abnormalities Mediastinum/Cardiac Silhouette/Lungs: Increased interstitial fluid markings. Impression: CHF Patient's heart failure symptoms is concerning for acute decompensation and will require inpatient workup and monitoring. Further w/u for ischemia, arrhythmia, PE or dissection will be deferred to the inpatient team. Accepting Care Team: Current data and ongoing care discussed. Time: 1 AM Primary Provider: Dr. Page Consulting: [XOXOXO] Outstanding Data: none Departure Diagnosis: Primary Impression: CHF (congestive heart failure), NYHA class III Congestive heart failure type: unspecified congestive heart failure type Qualified Code: I50.9 - Congestive heart failure, NYHA class 3, unspecified congestive heart failure type Condition: Serious CARISSA CORRALES Apr 18, 2017 00:32
[2017-04-18] MEDS ORDERED: FUROSEMIDE 40 MG INJ IV ONE (01:00)
[2017-04-18] MEDS ORDERED: ONDANSETRON 4 MG INJ IV STA (06:35)
[2017-04-18] MEDS ORDERED: morphine 4 MG/ML VIAL IV STA (06:35)
[2017-04-18] MEDS: hydrALAzine 20 MG INJ IV PRN (11:25)
[2017-04-18] MEDS ORDERED: POTASSIUM CHLORIDE (SR) 10 MEQ TAB PO SCH (11:30)
[2017-04-18] MEDS: ASPIRIN 81 MG TAB PO SCH (11:40)
[2017-04-18] MEDS: FAMOTIDINE 20 MG TAB PO SCH (11:40)
[2017-04-18] MEDS: LISINOPRIL 20 MG TAB PO SCH ×2 (12:03→21:20)
[2017-04-18] MEDS ORDERED: ONDANSETRON 4 MG INJ IV PRN (13:00)
--- NOTE | 2017-04-18 13:32 | HP ---
DATE OF ADMISSION: 04/18/2017 CHIEF COMPLAINT: Shortness of breath for the last couple of days, chest pain and increased bilatera l lower extremity edema. HISTORY OF PRESENT ILLNESS: The patient is a 31-year-old male with history of cardiomyopathy with d ecreased ejection fraction of 25% per last echo, congestive heart failure. The patient with history of acute right frontal lobe nonhemorrhagic infarct and punctate right occipital cortical infa rct, hypertension, obesity, history of amphetamine use. The patient developed shortness of breath f or the last couple of days, which got progressively worse. Patient also complains of chest pain whi ch was mild to moderate in intensity, substernal, pressure-like, with no exacerbating or alleviating factors. Patient also stated an increase in bilateral lower extremity edema and orthopnea. Patien t denies any fever, chills, denies any diarrhea. Patient stated that he feels slightly nauseated. Denies any emesis. The patient also complains of shortness of breath on exertion. The patient unde rwent a chest x-ray which revealed marked cardiomegaly, mild pulmonary vascular congestion, and old right clavicular fracture deformity. The patient was given IV Lasix with slight improvement in symp toms. The patient's troponin was 0.1, on admission, BNP was 2950. Patient also stated that he was not taking Lasix lately because that was not prescribed by his primary care physician ran out of his prescriptions and was giving patient on discharge. At last admission, the patient also noted to be hypertensive with blood pressure went up to 180/131. Patient was given Zofran and morphine in the emergency room and patient is admitted for further evaluation and management. PAST MEDICAL HISTORY: Per HPI. PAST SURGICAL HISTORY: Patient denies having any surgeries in the past. FAMILY HISTORY: Positive for history of cardiac disease in patient's mother. SOCIAL HISTORY: Patient is an everyday tobacco user, also has a history of crystal meth use. Patie nt denies any alcohol use. ALLERGIES: NO KNOWN ALLERGIES. HOME MEDICATIONS: 1. Lisinopril. 2. Atorvastatin. 3. Fenofibrate. 4. Coreg. 5. Aspirin. 6. Ativan. 7. Lasix. REVIEW OF SYSTEMS: A 12-point review of systems is negative unless what mentioned in the HPI. PHYSICAL ASSESSMENT: GENERAL: Well-developed, obese gentleman currently is awake, alert. VITAL SIGNS: Temperature 98.0, pulse is 79, blood pressure 152/90, respiratory rate 18, oxygen satu ration 100% on 3 liters nasal cannula, pulse 92. HEENT: Head is atraumatic, normocephalic. Pupils equal and rounded reactive to light and accommoda tion. Oral mucosa is pink and moist. NECK: Supple, no cervical lymphadenopathy, no thyromegaly. LUNGS: Clear bilaterally, slightly diminished at the bases. There is no rhonchi, wheezes, rales no christiana. CARDIOVASCULAR: Normal S1, S2. No murmurs, gallops, clicks, rubs noted. ABDOMEN: Protuberant, soft, nondistended, nontender. Bowel sounds present. No guarding, no reboun d tenderness. MUSCULOSKELETAL: Extremities edema, 2+ pulses equal bilaterally. SKIN: There is no rash, petechiae noted. NEUROLOGIC: Patient is awake, alert and oriented x4. No focal deficits noted. Motor strength 5/5 in all extremities. LABORATORY DATA: On admission, CBC: White blood cells 10.8, hemoglobin 11.6, hematocrit 38.7, plat elets 386. Chemistry: Sodium is 140, potassium 4.1, chloride 106, carbon dioxide 27, anion gap 11, BUN is 29, creatinine 1.05, glucose 103, calcium 8.0, AST 38, ALT 73, alkaline phosphatase 86. ASSESSMENT AND PLAN: 1. Acute on chronic systolic congestive heart failure exacerbation. 2. Cardiomegaly with ejection fraction of 25%. 3. Rule out acute coronary syndrome. We will obtain cardiac enzymes q.8 h. x3. Continue aspirin. Dr. Montelongo is asked to see patient in cardiology consultation. 4. Hypertension. Continue Coreg, lisinopril and Hydralazine p.r.n. 5. Hyperlipidemia. Continue Atorvastatin and fenofibrate. 6. Will continue Lovenox for deep venous thrombosis prophylaxis and Pepcid for peptic ulcer disease prophylaxis. 7 . Further recommendations based on clinical course. Plan of care discussed with Dr. Liriano. Dictated By: JEANNA MYERS COMPLEX DIRECTOR for ZACHARIAH LIRIANO MD SR/NTS Conf#: [id number] DID#: [id number] CC: ZACHARIAH LIRIANO MD;*EndCC*
[2017-04-18] MEDS ORDERED: LISINOPRIL 20 MG TAB PO SCH (21:00)
[2017-04-18] MEDS: ATORVASTATIN 40 MG TAB PO SCH (21:20)
[2017-04-19] VITALS (14 sets, daily range): BP systolic 131–170; BP diastolic 60–130; PULSE 75–149; RESP 18–26
[2017-04-19] MEDS: ACETAMINOPHEN 325 MG TAB PO PRN (00:56)
[2017-04-19] MEDS: hydrALAzine 20 MG INJ IV PRN (00:56)
[2017-04-19] MEDS: FUROSEMIDE 40 MG INJ IV SCH ×3 (01:39→18:08)
[2017-04-19] MEDS: morphine 2 MG INJ IV PRN ×3 (03:37→18:12)
[2017-04-19 07:40] LABS: BASOPHIL # 0.1 10^3/ul (0.0-0.1); BASOPHILS % 0.7 % (0.0-2.0); EOSINOPHILS # 0.3 10^3/ul (0.0-0.5); EOSINOPHILS % 3.1 % (0.0-7.0); HEMATOCRIT 37.3 % (42.0-52.0); HEMOGLOBIN 11.4 g/dl (14.0-18.0); LYMPHOCYTES % 21.6 % (15.0-51.0); MEAN CORPUSCULAR HEMOGLOBIN 23.9 pg (29.0-33.0); MEAN CORPUSCULAR HGB CONC 30.6 g/dl (32.0-37.0); MEAN CORPUSCULAR VOLUME 78.4 fl (82.0-101.0); MEAN PLATELET VOLUME 9.7 fl (7.4-10.4); MONOCYTE # 1.1 10^3/ul (0.3-0.9); MONOCYTES % 11.5 % (0.0-11.0); NEUTROPHIL # 5.8 10^3/ul (1.6-7.5); NEUTROPHILS % 62.8 % (39.0-77.0); PLATELET COUNT 405 10^3/UL (140-415); RED BLOOD COUNT 4.76 10^6/ul (4.70-6.10); RED CELL DISTRIBUTION WIDTH 15.8 % (11.5-14.5); WHITE BLOOD COUNT 9.2 10^3/ul (4.8-10.8)
[2017-04-19 08:06] LABS: CALCIUM 8.8 mg/dl (8.4-10.2); CREATININE 0.95 mg/dl (0.61-1.24); POTASSIUM 4.1 mmol/L (3.5-5.1)
[2017-04-19] MEDS: ASPIRIN 81 MG TAB PO SCH (09:45)
[2017-04-19] MEDS: POTASSIUM CHLORIDE (SR) 10 MEQ TAB PO SCH (09:45)
[2017-04-19] MEDS: FAMOTIDINE 20 MG TAB PO SCH (09:45)
[2017-04-19] MEDS: LISINOPRIL 20 MG TAB PO SCH ×2 (09:46→20:43)
[2017-04-19] MEDS: ENOXAPARIN 40 MG/0.4 ML SYG SC SCH (09:46)
[2017-04-19] MEDS: FENOFIBRATE 48 MG TAB PO SCH (09:46)
--- NOTE | 2017-04-19 13:02 | CONS ---
Date/Time of Note Date/Time of Note DATE: 04/19/17 TIME: 12:55 Assessment/Plan Assessment/Plan Additional Assessment/Plan Acute decompensated systolic congestive heart failure Severe cardiomyopathy with ejection fraction 20% Elevated troponins Recent crystal meth use NSVT Poor medication compliance -Patient with decompensated congestive heart failure secondary to morning medication compliance and continued methamphetamine use. Medications have been restarted, continue diuretics as renal function and blood pressure permits, maintain potassium above 4.0 and magnesium above 2.0. Troponins minimally elevated and likely secondary to decompensated congestive heart failure, hypertension and methamphetamine use. Continue antiplatelet therapy, statin therapy. Of importance is cessation of illicit drug use and medication compliance Consultation Date/Type/Reason Admit Date/Time Apr 18, 2017 at 00:32 Type of Consultation: cv Reason for Consultation Shortness of breath Hx of Present Illness This is a 31-year-old male with past medical history of severe cardiomyopathy with congestive heart failure, CVA, active meth use who presents with progressive worsening shortness of breath over the past week. Patient states he has not taken his medications for over a month secondary to running out after his discharge medicines were not refilled by his primary physician. He denies any fevers or chills, denies any chest pain, shortness of breath has improved. He does admit to methamphetamine use most recently proximal and one week ago. 12 point review of systems was performed with all pertinent positives and negatives mentioned above and all else is negative Past Medical History CVA Medical History: congestive heart failure, hypertension Past Surgical History Past Surgical Hx: no surgical history Family History Significant Family History: no pertinent family hx Social History Smoking Status: Current some day smoker Drug Use: other (Meth) Exam/Review of Systems Vital Signs Vitals Vital Signs Date Time Temp Pulse Resp B/P Pulse Ox O2 Delivery O2 Flow Rate FiO2 04/19/17 12:21 88 04/19/17 11:30 97.0 18 152/95 100 04/18/17 21:15 Room Air 04/18/17 08:18 3.0 Intake and Output 04/18/17 04/18/17 04/19/17 15:00 23:00 07:00 Intake Total 400 ml 350 ml Output Total 4000 ml Balance 400 ml -3650 ml Exam Sleeping but arousable and follows commands and able to give history, no apparent distress Head: normocephalic Respiratory: other (Coarse breath sounds bilaterally, no wheezing) Cardiovascular: other (S1-S2 heard), regular rate and rhythm Gastrointestinal: bowel sounds, non-tender, soft Extremities: edema Results Result Diagram: 04/19/17 0649 04/19/17 0649 Results 24 hrs Laboratory Tests Test 04/19/17 06:49 White Blood Count 9.2 Red Blood Count 4.76 Hemoglobin 11.4 L Hematocrit 37.3 L Mean Corpuscular Volume 78.4 L Mean Corpuscular Hemoglobin 23.9 L Mean Corpuscular Hemoglobin Concent 30.6 L Red Cell Distribution Width 15.8 H Platelet Count 405 Mean Platelet Volume 9.7 Neutrophils % 62.8 Lymphocytes % 21.6 Monocytes % 11.5 H Eosinophils % 3.1 Basophils % 0.7 Nucleated Red Blood Cells % 0.0 Neutrophils # 5.8 Lymphocytes # 2.0 Monocytes # 1.1 H Eosinophils # 0.3 Basophils # 0.1 Nucleated Red Blood Cells # 0.0 Sodium Level 140 Potassium Level 4.1 Chloride Level 105 Carbon Dioxide Level 29 Anion Gap 10 Blood Urea Nitrogen 29 H Creatinine 0.95 Glucose Level 101 Calcium Level 8.8 Troponin I 0.254 *H Medications Medications Current Medications Hydralazine HCl (Apresoline) 10 mg Q4H PRN IV SBP>170;DBP >95 Last administered on 04/19/17 00:56; Admin Dose 10 MG; Start 04/18/17 at 11:00 Aspirin (Aspirin) 81 mg DAILY PO Last administered on 04/19/17 09:45; Admin Dose 81 MG; Start 04/18/17 at 11:30 Atorvastatin Calcium (Lipitor) 40 mg HS PO Last administered on 04/18/17 21: 20; Admin Dose 40 MG; Start 04/18/17 at 21:00 Famotidine (Pepcid) 20 mg DAILY PO Last administered on 04/19/17 09:45; Admin Dose 20 MG; Start 04/18/17 at 11:30 Fenofibrate (Tricor) 48 mg DAILY PO Last administered on 04/19/17 09:46; Admin Dose 48 MG; Start 04/19/17 at 09:00 Carvedilol (Coreg) 12.5 mg BID PO Last administered on 04/19/17 09:46; Admin Dose 12.5 MG; Start 04/18/17 at 12:00 Lisinopril (Zestril) 20 mg BID PO Last administered on 04/19/17 09:46; Admin Dose 20 MG; Start 04/18/17 at 12:00 Morphine Sulfate (morphine) 2 mg Q4H PRN IV PAIN LEVEL 8-10 Last administered on 04/19/17 03:37; Admin Dose 2 MG; Start 04/18/17 at 13:00 Acetaminophen (Tylenol Tab) 650 mg Q4H PRN PO PAIN AND OR ELEVATED TEMP Last administered on 04/19/17 00:56; Admin Dose 650 MG; Start 04/18/17 at 13:00 Ondansetron HCl (Zofran Inj) 4 mg Q6H PRN IV NAUSEA AND/OR VOMITING Last administered on 04/19/17 03:36; Admin Dose 4 MG; Start 04/18/17 at 13:00 Potassium Chloride (Klor-Con 10) 20 meq DAILY PO Last administered on 09:45; Admin Dose 20 MEQ; Start 04/19/17 at 09:00 Hydralazine HCl (Apresoline) 25 mg TID PO Last administered on 04/19/17 09:45 ; Admin Dose 25 MG; Start 04/19/17 at 09:00 Enoxaparin Sodium (Lovenox) 40 mg DAILY SC Last administered on 04/19/17 09: 46; Admin Dose 40 MG; Start 04/19/17 at 09:00 Procedures Procedures ECG demonstrates sinus rhythm at 75 bpm, first-degree AV block, QRS 120 ms, nonspecific T-wave abnormalities Redd Montelongo DO Apr 19, 2017 13:01
--- NOTE | 2017-04-19 17:32 | PN ---
Date/Time of Note Date/Time of Note DATE: 04/19/17 TIME: 17:23 Assessment/Plan VTE Prophylaxis VTE Prophylaxis Intervention: SCD's Lines/Catheters IV Catheter Type (from [facility]): Peripheral IV Urinary Cath still in place: No Assessment/Plan Assessment/Plan - Acute on chronic systolic congestive heart failure exacerbation. Continue Lasix, monitor electrolytes. - Cardiomegaly with ejection fraction of 25%. - Elevated troponin continue aspirin. Dr. Montelongo is following in cardiology consultation. - Hypertension. Continue Coreg, lisinopril and Hydralazine p.r.n. - Hyperlipidemia. Continue Atorvastatin and fenofibrate. - Poor medical compliance methamphetamine use - Methamphetamine use Further recommendations based on clinical course. Plan of care discussed with Dr. Liriano. Exam/Review of Systems Vital Signs Vitals Vital Signs Date Time Temp Pulse Resp B/P Pulse Ox O2 Delivery O2 Flow Rate FiO2 04/19/17 16:34 81 04/19/17 15:34 98.6 21 135/80 99 04/18/17 21:15 Room Air 04/18/17 08:18 3.0 Intake and Output 04/18/17 04/18/17 04/19/17 15:00 23:00 07:00 Intake Total 400 ml 350 ml Output Total 4000 ml Balance 400 ml -3650 ml Exam Constitutional: alert, oriented Head: normocephalic Neck: supple Respiratory: clear to auscultation Cardiovascular: nl pulses Gastrointestinal: non-tender, soft Musculoskeletal: nl extremities to inspection Extremities: normal pulses Results Result Diagram: 04/19/17 0649 04/19/17 0649 Results 24 hrs Laboratory Tests Test 04/19/17 06:49 04/19/17 14:52 White Blood Count 9.2 Red Blood Count 4.76 Hemoglobin 11.4 L Hematocrit 37.3 L Mean Corpuscular Volume 78.4 L Mean Corpuscular Hemoglobin 23.9 L Mean Corpuscular Hemoglobin Concent 30.6 L Red Cell Distribution Width 15.8 H Platelet Count 405 Mean Platelet Volume 9.7 Neutrophils % 62.8 Lymphocytes % 21.6 Monocytes % 11.5 H Eosinophils % 3.1 Basophils % 0.7 Nucleated Red Blood Cells % 0.0 Neutrophils # 5.8 Lymphocytes # 2.0 Monocytes # 1.1 H Eosinophils # 0.3 Basophils # 0.1 Nucleated Red Blood Cells # 0.0 Sodium Level 140 Potassium Level 4.1 Chloride Level 105 Carbon Dioxide Level 29 Anion Gap 10 Blood Urea Nitrogen 29 H Creatinine 0.95 Glucose Level 101 Calcium Level 8.8 Troponin I 0.254 *H 0.169 *H Medications Medications Current Medications Hydralazine HCl (Apresoline) 10 mg Q4H PRN IV SBP>170;DBP >95 Last administered on 04/19/17 00:56; Admin Dose 10 MG; Start 04/18/17 at 11:00 Aspirin (Aspirin) 81 mg DAILY PO Last administered on 04/19/17 09:45; Admin Dose 81 MG; Start 04/18/17 at 11:30 Atorvastatin Calcium (Lipitor) 40 mg HS PO Last administered on 04/18/17 21: 20; Admin Dose 40 MG; Start 04/18/17 at 21:00 Famotidine (Pepcid) 20 mg DAILY PO Last administered on 04/19/17 09:45; Admin Dose 20 MG; Start 04/18/17 at 11:30 Fenofibrate (Tricor) 48 mg DAILY PO Last administered on 04/19/17 09:46; Admin Dose 48 MG; Start 04/19/17 at 09:00 Carvedilol (Coreg) 12.5 mg BID PO Last administered on 04/19/17 09:46; Admin Dose 12.5 MG; Start 04/18/17 at 12:00 Lisinopril (Zestril) 20 mg BID PO Last administered on 04/19/17 09:46; Admin Dose 20 MG; Start 04/18/17 at 12:00 Morphine Sulfate (morphine) 2 mg Q4H PRN IV PAIN LEVEL 8-10 Last administered on 04/19/17 13:54; Admin Dose 2 MG; Start 04/18/17 at 13:00 Acetaminophen (Tylenol Tab) 650 mg Q4H PRN PO PAIN AND OR ELEVATED TEMP Last administered on 04/19/17 00:56; Admin Dose 650 MG; Start 04/18/17 at 13:00 Ondansetron HCl (Zofran Inj) 4 mg Q6H PRN IV NAUSEA AND/OR VOMITING Last administered on 04/19/17 03:36; Admin Dose 4 MG; Start 04/18/17 at 13:00 Potassium Chloride (Klor-Con 10) 20 meq DAILY PO Last administered on 09:45; Admin Dose 20 MEQ; Start 04/19/17 at 09:00 Hydralazine HCl (Apresoline) 25 mg TID PO Last administered on 04/19/17 13:54 ; Admin Dose 25 MG; Start 04/19/17 at 09:00 Enoxaparin Sodium (Lovenox) 40 mg DAILY SC Last administered on 04/19/17 09: 46; Admin Dose 40 MG; Start 04/19/17 at 09:00 JEANNA MYERS Apr 19, 2017 17:32
[2017-04-19] MEDS: ATORVASTATIN 40 MG TAB PO SCH (20:42)
[2017-04-20] VITALS (13 sets, daily range): BP systolic 118–173; BP diastolic 58–110; PULSE 78–94; RESP 16–19
[2017-04-20] MEDS: hydrALAzine 20 MG INJ IV PRN (04:14)
[2017-04-20] MEDS: FUROSEMIDE 40 MG INJ IV SCH ×2 (05:39→17:24)
[2017-04-20] MEDS: ACETAMINOPHEN 325 MG TAB PO PRN ×2 (06:22→20:46)
[2017-04-20 08:39] LABS: BASOPHIL # 0.1 10^3/ul (0.0-0.1); BASOPHILS % 0.5 % (0.0-2.0); EOSINOPHILS # 0.3 10^3/ul (0.0-0.5); HEMATOCRIT 41.4 % (42.0-52.0); HEMOGLOBIN 12.3 g/dl (14.0-18.0); LYMPHOCYTES # 1.8 10^3/ul (0.8-2.9); LYMPHOCYTES % 18.2 % (15.0-51.0); MEAN CORPUSCULAR HEMOGLOBIN 23.3 pg (29.0-33.0); MEAN CORPUSCULAR HGB CONC 29.7 g/dl (32.0-37.0); MEAN CORPUSCULAR VOLUME 78.4 fl (82.0-101.0); MEAN PLATELET VOLUME 9.5 fl (7.4-10.4); MONOCYTES % 10.8 % (0.0-11.0); NEUTROPHIL # 6.4 10^3/ul (1.6-7.5); PLATELET COUNT 507 10^3/UL (140-415); RED BLOOD COUNT 5.28 10^6/ul (4.70-6.10); RED CELL DISTRIBUTION WIDTH 15.8 % (11.5-14.5); WHITE BLOOD COUNT 9.6 10^3/ul (4.8-10.8)
[2017-04-20 09:06] LABS: CALCIUM 9.3 mg/dl (8.4-10.2); CREATININE 1.12 mg/dl (0.61-1.24); POTASSIUM 3.9 mmol/L (3.5-5.1)
[2017-04-20] MEDS: LISINOPRIL 20 MG TAB PO SCH ×2 (09:30→20:49)
[2017-04-20] MEDS: ASPIRIN 81 MG TAB PO SCH (09:30)
[2017-04-20] MEDS: FENOFIBRATE 48 MG TAB PO SCH (09:31)
[2017-04-20] MEDS: POTASSIUM CHLORIDE (SR) 10 MEQ TAB PO SCH (09:31)
[2017-04-20] MEDS: FAMOTIDINE 20 MG TAB PO SCH (09:31)
[2017-04-20] MEDS: ENOXAPARIN 40 MG/0.4 ML SYG SC SCH (09:33)
[2017-04-20] MEDS: morphine 2 MG INJ IV PRN (12:50)
--- NOTE | 2017-04-20 16:10 | PN ---
Date/Time of Note Date/Time of Note DATE: 04/20/17 TIME: 16:08 Assessment/Plan VTE Prophylaxis VTE Prophylaxis Intervention: SCD's Lines/Catheters IV [facility] Type (from [facility]): Saline Lock Urinary Cath still in place: No Assessment/Plan Chief Complaint/Hosp Course Patient is comfortable at rest, complains of shortness of breath breath on exertion, magnesium replaced Assessment/Plan - Acute on chronic systolic congestive heart failure exacerbation. Continue Lasix, monitor electrolytes. - Cardiomegaly with ejection fraction of 25%. - Elevated troponin continue aspirin. Dr. Montelongo is following in cardiology consultation. - Hypertension. Continue Coreg, lisinopril and Hydralazine p.r.n. - Hyperlipidemia. Continue Atorvastatin and fenofibrate. 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 Plan of care discussed with Dr. Liriano. Problems: Exam/Review of Systems Vital Signs Vitals Vital Signs Date Time Temp Pulse Resp B/P Pulse Ox O2 Delivery O2 Flow Rate FiO2 04/20/17 15:17 98.0 87 16 126/79 99 04/20/17 05:00 Room Air 04/18/17 08:18 3.0 Intake and Output 04/19/17 04/19/17 04/20/17 14:59 22:59 06:59 Intake Total 800 ml Output Total 3000 ml Balance -2200 ml Exam Constitutional: alert, oriented Head: normocephalic Neck: supple Respiratory: clear to auscultation Cardiovascular: nl pulses Gastrointestinal: non-tender, soft Musculoskeletal: nl extremities to inspection Extremities: normal pulses Results Result Diagram: 04/20/17 0726 04/20/17 0726 Results 24 hrs Laboratory Tests Test 04/20/17 07:26 White Blood Count 9.6 Red Blood Count 5.28 Hemoglobin 12.3 L Hematocrit 41.4 L Mean Corpuscular Volume 78.4 L Mean Corpuscular Hemoglobin 23.3 L Mean Corpuscular Hemoglobin Concent 29.7 L Red Cell Distribution Width 15.8 H Platelet Count 507 #H Mean Platelet Volume 9.5 Neutrophils % 67.0 Lymphocytes % 18.2 Monocytes % 10.8 Eosinophils % 3.0 Basophils % 0.5 Nucleated Red Blood Cells % 0.0 Neutrophils # 6.4 Lymphocytes # 1.8 Monocytes # 1.0 H Eosinophils # 0.3 Basophils # 0.1 Nucleated Red Blood Cells # 0.0 Sodium Level 143 Potassium Level 3.9 Chloride Level 102 Carbon Dioxide Level 32 H Anion Gap 13 Blood Urea Nitrogen 24 H Creatinine 1.12 Glucose Level 91 Calcium Level 9.3 Magnesium Level 1.6 L Medications Medications Current Medications Hydralazine HCl (Apresoline) 10 mg Q4H PRN IV SBP>170;DBP >95 Last administered on 04/20/17 04:14; Admin Dose 10 MG; Start 04/18/17 at 11:00 Aspirin (Aspirin) 81 mg DAILY PO Last administered on 04/20/17 09:30; Admin Dose 81 MG; Start 04/18/17 at 11:30 Atorvastatin Calcium (Lipitor) 40 mg HS PO Last administered on 04/19/17 20: 42; Admin Dose 40 MG; Start 04/18/17 at 21:00 Famotidine (Pepcid) 20 mg DAILY PO Last administered on 04/20/17 09:31; Admin Dose 20 MG; Start 04/18/17 at 11:30 Fenofibrate (Tricor) 48 mg DAILY PO Last administered on 04/20/17 09:31; Admin Dose 48 MG; Start 04/19/17 at 09:00 Carvedilol (Coreg) 12.5 mg BID PO Last administered on 04/20/17 09:31; Admin Dose 12.5 MG; Start 04/18/17 at 12:00 Lisinopril (Zestril) 20 mg BID PO Last administered on 04/20/17 09:30; Admin Dose 20 MG; Start 04/18/17 at 12:00 Morphine Sulfate (morphine) 2 mg Q4H PRN IV PAIN LEVEL 8-10 Last administered on 04/20/17 12:50; Admin Dose 2 MG; Start 04/18/17 at 13:00 Acetaminophen (Tylenol Tab) 650 mg Q4H PRN PO PAIN AND OR ELEVATED TEMP Last administered on 04/20/17 06:22; Admin Dose 650 MG; Start 04/18/17 at 13:00 Ondansetron HCl (Zofran Inj) 4 mg Q6H PRN IV NAUSEA AND/OR VOMITING Last administered on 04/19/17 03:36; Admin Dose 4 MG; Start 04/18/17 at 13:00 Potassium Chloride (Klor-Con 10) 20 meq DAILY PO Last administered on 09:31; Admin Dose 20 MEQ; Start 04/19/17 at 09:00 Hydralazine HCl (Apresoline) 25 mg TID PO Last administered on 04/20/17 12:33 ; Admin Dose 25 MG; Start 04/19/17 at 09:00 Enoxaparin Sodium (Lovenox) 40 mg DAILY SC Last administered on 04/20/17 09: 33; Admin Dose 40 MG; Start 04/19/17 at 09:00 JEANNA MYERS Apr 20, 2017 16:10
[2017-04-20] MEDS ORDERED: MAGNESIUM SULFATE 2 GM/50 ML 50 ML IVPB ONE (16:30)
--- NOTE | 2017-04-20 18:24 | PN ---
Date/Time of Note Date/Time of Note DATE: 04/20/17 TIME: 18:20 Assessment/Plan VTE Prophylaxis VTE Prophylaxis Intervention: SCD's Lines/Catheters IV Catheter Type (from [facility]): Saline Lock Urinary Cath still in place: No Assessment/Plan Assessment/Plan Acute decompensated systolic congestive heart failure Severe cardiomyopathy with ejection fraction 20% Elevated troponins Recent crystal meth use NSVT Poor medication compliance -Patient with decompensated congestive heart failure secondary to morning medication compliance and continued methamphetamine use. Medications have been restarted, continue diuretics as renal function and blood pressure permits, maintain potassium above 4.0 and magnesium above 2.0. Troponins minimally elevated and likely secondary to decompensated congestive heart failure, hypertension and methamphetamine use. Continue antiplatelet therapy, statin therapy. Of importance is cessation of illicit drug use and medication compliancew -possible po lasix in the next 1-2 days Subjective 24 Hr Interval Summary Free Text/Dictation The patient improving Exam/Review of Systems Vital Signs Vitals Vital Signs Date Time Temp Pulse Resp B/P Pulse Ox O2 Delivery O2 Flow Rate FiO2 04/20/17 16:12 78 04/20/17:17 98.0 16 126/79 99 04/20/17 05:00 Room Air 04/18/17 08:18 3.0 Intake and Output 04/19/17 04/19/17 04/20/17 15:00 23:00 07:00 Intake Total 800 ml Output Total 3000 ml Balance -2200 ml Results Result Diagram: 04/20/17 0726 04/20/17 0726 Results 24 hrs Laboratory Tests Test 04/20/17 07:26 White Blood Count 9.6 Red Blood Count 5.28 Hemoglobin 12.3 L Hematocrit 41.4 L Mean Corpuscular Volume 78.4 L Mean Corpuscular Hemoglobin 23.3 L Mean Corpuscular Hemoglobin Concent 29.7 L Red Cell Distribution Width 15.8 H Platelet Count 507 #H Mean Platelet Volume 9.5 Neutrophils % 67.0 Lymphocytes % 18.2 Monocytes % 10.8 Eosinophils % 3.0 Basophils % 0.5 Nucleated Red Blood Cells % 0.0 Neutrophils # 6.4 Lymphocytes # 1.8 Monocytes # 1.0 H Eosinophils # 0.3 Basophils # 0.1 Nucleated Red Blood Cells # 0.0 Sodium Level 143 Potassium Level 3.9 Chloride Level 102 Carbon Dioxide Level 32 H Anion Gap 13 Blood Urea Nitrogen 24 H Creatinine 1.12 Glucose Level 91 Calcium Level 9.3 Magnesium Level 1.6 L Medications Medications Current Medications Hydralazine HCl (Apresoline) 10 mg Q4H PRN IV SBP>170;DBP >95 Last administered on 04/20/17 04:14; Admin Dose 10 MG; Start 04/18/17 at 11:00 Aspirin (Aspirin) 81 mg DAILY PO Last administered on 04/20/17 09:30; Admin Dose 81 MG; Start 04/18/17 at 11:30 Atorvastatin Calcium (Lipitor) 40 mg HS PO Last administered on 04/19/17 20: 42; Admin Dose 40 MG; Start 04/18/17 at 21:00 Famotidine (Pepcid) 20 mg DAILY PO Last administered on 04/20/17 09:31; Admin Dose 20 MG; Start 04/18/17 at 11:30 Fenofibrate (Tricor) 48 mg DAILY PO Last administered on 04/20/17 09:31; Admin Dose 48 MG; Start 04/19/17 at 09:00 Carvedilol (Coreg) 12.5 mg BID PO Last administered on 04/20/17 09:31; Admin Dose 12.5 MG; Start 04/18/17 at 12:00 Lisinopril (Zestril) 20 mg BID PO Last administered on 04/20/17 09:30; Admin Dose 20 MG; Start 04/18/17 at 12:00 Morphine Sulfate (morphine) 2 mg Q4H PRN IV PAIN LEVEL 8-10 Last administered on 04/20/17 12:50; Admin Dose 2 MG; Start 04/18/17 at 13:00 Acetaminophen (Tylenol Tab) 650 mg Q4H PRN PO PAIN AND OR ELEVATED TEMP Last administered on 04/20/17 06:22; Admin Dose 650 MG; Start 04/18/17 at 13:00 Ondansetron HCl (Zofran Inj) 4 mg Q6H PRN IV NAUSEA AND/OR VOMITING Last administered on 04/19/17 03:36; Admin Dose 4 MG; Start 04/18/17 at 13:00 Potassium Chloride (Klor-Con 10) 20 meq DAILY PO Last administered on 09:31; Admin Dose 20 MEQ; Start 04/19/17 at 09:00 Hydralazine HCl (Apresoline) 25 mg TID PO Last administered on 04/20/17 12:33 ; Admin Dose 25 MG; Start 04/19/17 at 09:00 Enoxaparin Sodium 40 mg 40 mg DAILY SC Last administered on 04/20/17 09:33; Admin Dose 40 MG; Start 04/19/17 at 09:00 Magnesium Sulfate (Magnesium Sulfate 2 Gm/50 ml) 50 ml @ 25 mls/hr ONCE ONCE IVPB Last administered on 04/20/17 17:24; Admin Dose 25 MLS/HR; Start at 16:30; Stop 04/20/17 at 18:29 OTILIA LONDON MD Apr 20, 2017 18:24
[2017-04-20] MEDS: ATORVASTATIN 40 MG TAB PO SCH (20:47)
[2017-04-21] VITALS (11 sets, daily range): BP systolic 129–176; BP diastolic 67–95; PULSE 82–102; RESP 16–20
[2017-04-21] MEDS: FUROSEMIDE 40 MG INJ IV SCH ×2 (05:10→17:42)
[2017-04-21 08:28] LABS: BASOPHIL # 0.1 10^3/ul (0.0-0.1); BASOPHILS % 0.7 % (0.0-2.0); EOSINOPHILS # 0.3 10^3/ul (0.0-0.5); EOSINOPHILS % 3.4 % (0.0-7.0); HEMATOCRIT 42.9 % (42.0-52.0); HEMOGLOBIN 12.7 g/dl (14.0-18.0); LYMPHOCYTES # 1.9 10^3/ul (0.8-2.9); LYMPHOCYTES % 18.7 % (15.0-51.0); MEAN CORPUSCULAR HEMOGLOBIN 23.6 pg (29.0-33.0); MEAN CORPUSCULAR HGB CONC 29.6 g/dl (32.0-37.0); MEAN CORPUSCULAR VOLUME 79.6 fl (82.0-101.0); MEAN PLATELET VOLUME 9.5 fl (7.4-10.4); MONOCYTE # 1.2 10^3/ul (0.3-0.9); MONOCYTES % 11.9 % (0.0-11.0); NEUTROPHIL # 6.6 10^3/ul (1.6-7.5); NEUTROPHILS % 64.8 % (39.0-77.0); PLATELET COUNT 537 10^3/UL (140-415); RED BLOOD COUNT 5.39 10^6/ul (4.70-6.10); RED CELL DISTRIBUTION WIDTH 15.8 % (11.5-14.5); WHITE BLOOD COUNT 10.1 10^3/ul (4.8-10.8)
[2017-04-21 08:58] LABS: CALCIUM 9.4 mg/dl (8.4-10.2); CREATININE 1.07 mg/dl (0.61-1.24); POTASSIUM 4.2 mmol/L (3.5-5.1)
[2017-04-21] MEDS: FENOFIBRATE 48 MG TAB PO SCH (09:57)
[2017-04-21] MEDS: FAMOTIDINE 20 MG TAB PO SCH (09:57)
[2017-04-21] MEDS: ASPIRIN 81 MG TAB PO SCH (09:57)
[2017-04-21] MEDS: LISINOPRIL 20 MG TAB PO SCH ×2 (09:57→21:41)
[2017-04-21] MEDS: POTASSIUM CHLORIDE (SR) 10 MEQ TAB PO SCH (09:58)
[2017-04-21] MEDS: ENOXAPARIN 40 MG/0.4 ML SYG SC SCH (10:11)
--- NOTE | 2017-04-21 13:09 | PN ---
Date/Time of Note Date/Time of Note DATE: 04/21/17 TIME: 13:08 Assessment/Plan VTE Prophylaxis VTE Prophylaxis Intervention: SCD's Lines/Catheters [facility] Saline Lock Urinary Cath still in place: No Assessment/Plan Chief Complaint/Hosp Course Patient is comfortable at rest, complains of shortness of breath breath on exertion. Assessment/Plan - Acute on chronic systolic congestive heart failure exacerbation. Continue Lasix, monitor electrolytes. - Cardiomegaly with ejection fraction of 25%. - Elevated troponin continue aspirin. Dr. Montelongo is following in cardiology consultation. - Hypertension. Continue Coreg, lisinopril and Hydralazine p.r.n. - Hyperlipidemia. Continue Atorvastatin and fenofibrate. 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 Plan of care discussed with Dr. Liriano. Problems: Exam/Review of Systems Vital Signs Vitals Vital Signs Date Time Temp Pulse Resp B/P Pulse Ox O2 Delivery O2 Flow Rate FiO2 04/21/17 12:41 90 04/21/17 11:30 98.1 16 154/86 97 04/20/17 05:00 Room Air 04/18/17 08:18 3.0 Intake and Output 04/20/17 04/20/17 04/21/17 15:00 23:00 07:00 Intake Total 940 ml 900 ml Output Total 2600 ml 2700 ml Balance -1660 ml -1800 ml Exam Constitutional: alert, oriented Head: normocephalic Neck: supple Respiratory: clear to auscultation Cardiovascular: nl pulses Gastrointestinal: non-tender, soft Musculoskeletal: nl extremities to inspection Extremities: normal pulses Results Result Diagram: 04/21/1772604/21/17726 Results 24 hrs Laboratory Tests Test 04/21/17 07:27 White Blood Count 10.1 Red Blood Count 5.39 Hemoglobin 12.7 L Hematocrit 42.9 Mean Corpuscular Volume 79.6 L Mean Corpuscular Hemoglobin 23.6 L Mean Corpuscular Hemoglobin Concent 29.6 L Red Cell Distribution Width 15.8 H Platelet Count 537 H Mean Platelet Volume 9.5 Neutrophils % 64.8 Lymphocytes % 18.7 Monocytes % 11.9 H Eosinophils % 3.4 Basophils % 0.7 Nucleated Red Blood Cells % 0.0 Neutrophils # 6.6 Lymphocytes # 1.9 Monocytes # 1.2 H Eosinophils # 0.3 Basophils # 0.1 Nucleated Red Blood Cells # 0.0 Sodium Level 144 Potassium Level 4.2 Chloride Level 102 Carbon Dioxide Level 33 H Anion Gap 13 Blood Urea Nitrogen 22 H Creatinine 1.07 Glucose Level 86 Calcium Level 9.4 Medications Medications Current Medications Hydralazine HCl (Apresoline) 10 mg Q4H PRN IV SBP>170;DBP >95 Last administered on 04/20/17 04:14; Admin Dose 10 MG; Start 04/18/17 at 11:00 Aspirin (Aspirin) 81 mg DAILY PO Last administered on 04/21/17 09:57; Admin Dose 81 MG; Start 04/18/17 at 11:30 Atorvastatin Calcium (Lipitor) 40 mg HS PO Last administered on 04/20/17 20: 47; Admin Dose 40 MG; Start 04/18/17 at 21:00 Famotidine (Pepcid) 20 mg DAILY PO Last administered on 04/21/17 09:57; Admin Dose 20 MG; Start 04/18/17 at 11:30 Fenofibrate (Tricor) 48 mg DAILY PO Last administered on 04/21/17 09:57; Admin Dose 48 MG; Start 04/19/17 at 09:00 Carvedilol (Coreg) 12.5 mg BID PO Last administered on 04/21/17 09:58; Admin Dose 12.5 MG; Start 04/18/17 at 12:00 Lisinopril (Zestril) 20 mg BID PO Last administered on 04/21/17 09:57; Admin Dose 20 MG; Start 04/18/17 at 12:00 Morphine Sulfate (morphine) 2 mg Q4H PRN IV PAIN LEVEL 8-10 Last administered on 04/20/17 12:50; Admin Dose 2 MG; Start 04/18/17 at 13:00 Acetaminophen (Tylenol Tab) 650 mg Q4H PRN PO PAIN AND OR ELEVATED TEMP Last administered on 04/20/17 20:46; Admin Dose 650 MG; Start 04/18/17 at 13:00 Ondansetron HCl (Zofran Inj) 4 mg Q6H PRN IV NAUSEA AND/OR VOMITING Last administered on 04/19/17 03:36; Admin Dose 4 MG; Start 04/18/17 at 13:00 Potassium Chloride (Klor-Con 10) 20 meq DAILY PO Last administered on 09:58; Admin Dose 20 MEQ; Start 04/19/17 at 09:00 Hydralazine HCl (Apresoline) 25 mg TID PO Last administered on 04/21/17 09:59 ; Admin Dose 25 MG; Start 04/19/17 at 09:00 Enoxaparin Sodium (Lovenox) 40 mg DAILY SC Last administered on 04/21/17 10: 11; Admin Dose 40 MG; Start 04/19/17 at 09:00 JEANNA MYERS Apr 21, 2017 13:09
--- NOTE | 2017-04-21 13:15 | RADRPT ---
Vent Rate: 75 bpm RR Interval: 0 msec NM Interval: 216 msec QRS Duration: 120 msec QT Interval: 424 msec QTC Interval: 473 msec P-R-T [place]: 35 - 48 - 0 degrees Sinus rhythm with 1st degree AV block Possible Left atrial enlargement Incomplete left bundle branch block T wave abnormality, consider inferolateral ischemia Abnormal ECG Electronically Signed By: Carlos Enrique Barber [id number]
--- NOTE | 2017-04-21 13:28 | PN ---
Date/Time of Note Date/Time of Note DATE: 04/21/17 TIME: 13:27 Assessment/Plan VTE Prophylaxis VTE Prophylaxis Intervention: SCD's Lines/Catheters IV [facility]ter Type (from [facility]): Saline Lock Urinary Cath still in place: No Assessment/Plan Assessment/Plan Acute decompensated systolic congestive heart failure Severe cardiomyopathy with ejection fraction 20% Elevated troponins Recent crystal meth use NSVT Poor medication compliance -Patient with decompensated congestive heart failure secondary to morning medication compliance and continued methamphetamine use. Medications have been restarted, continue diuretics as renal function and blood pressure permits, maintain potassium above 4.0 and magnesium above 2.0. Troponins minimally elevated and likely secondary to decompensated congestive heart failure, hypertension and methamphetamine use. Continue antiplatelet therapy, statin therapy. Of importance is cessation of illicit drug use and medication compliancew -possible po lasix in the next 1-2 days Subjective 24 Hr Interval Summary Free Text/Dictation the patient with no change Exam/Review of Systems Vital Signs Vitals Vital Signs Date Time Temp Pulse Resp B/P Pulse Ox O2 Delivery O2 Flow Rate FiO2 04/21/17 12:41 90 04/21/17 11:30 98.1 16 154/86 97 04/20/17 05:00 Room Air 04/18/17 08:18 3.0 Intake and Output 04/20/17 04/20/17 04/21/17 15:00 23:00 07:00 Intake Total 940 ml 900 ml Output Total 2600 ml 2700 ml Balance -1660 ml -1800 ml Results Result Diagram: 04/21/17 0727 04/21/17 0727 Results 24 hrs Laboratory Tests Test 04/21/17 07:27 White Blood Count 10.1 Red Blood Count 5.39 Hemoglobin 12.7 L Hematocrit 42.9 Mean Corpuscular Volume 79.6 L Mean Corpuscular Hemoglobin 23.6 L Mean Corpuscular Hemoglobin Concent 29.6 L Red Cell Distribution Width 15.8 H Platelet Count 537 H Mean Platelet Volume 9.5 Neutrophils % 64.8 Lymphocytes % 18.7 Monocytes % 11.9 H Eosinophils % 3.4 Basophils % 0.7 Nucleated Red Blood Cells % 0.0 Neutrophils # 6.6 Lymphocytes # 1.9 Monocytes # 1.2 H Eosinophils # 0.3 Basophils # 0.1 Nucleated Red Blood Cells # 0.0 Sodium Level 144 Potassium Level 4.2 Chloride Level 102 Carbon Dioxide Level 33 H Anion Gap 13 Blood Urea Nitrogen 22 H Creatinine 1.07 Glucose Level 86 Calcium Level 9.4 Medications Medications Current Medications Hydralazine HCl (Apresoline) 10 mg Q4H PRN IV SBP>170;DBP >95 Last administered on 04/20/17 04:14; Admin Dose 10 MG; Start 04/18/17 at 11:00 Aspirin (Aspirin) 81 mg DAILY PO Last administered on 04/21/17 09:57; Admin Dose 81 MG; Start 04/18/17 at 11:30 Atorvastatin Calcium (Lipitor) 40 mg HS PO Last administered on 04/20/17 20: 47; Admin Dose 40 MG; Start 04/18/17 at 21:00 Famotidine (Pepcid) 20 mg DAILY PO Last administered on 04/21/17 09:57; Admin Dose 20 MG; Start 04/18/17 at 11:30 Fenofibrate (Tricor) 48 mg DAILY PO Last administered on 04/21/17 09:57; Admin Dose 48 MG; Start 04/19/17 at 09:00 Carvedilol (Coreg) 12.5 mg BID PO Last administered on 04/21/17 09:58; Admin Dose 12.5 MG; Start 04/18/17 at 12:00 Lisinopril (Zestril) 20 mg BID PO Last administered on 04/21/17 09:57; Admin Dose 20 MG; Start 04/18/17 at 12:00 Morphine Sulfate (morphine) 2 mg Q4H PRN IV PAIN LEVEL 8-10 Last administered on 04/20/17 12:50; Admin Dose 2 MG; Start 04/18/17 at 13:00 Acetaminophen (Tylenol Tab) 650 mg Q4H PRN PO PAIN AND OR ELEVATED TEMP Last administered on 04/20/17 20:46; Admin Dose 650 MG; Start 04/18/17 at 13:00 Ondansetron HCl (Zofran Inj) 4 mg Q6H PRN IV NAUSEA AND/OR VOMITING Last administered on 04/19/17 03:36; Admin Dose 4 MG; Start 04/18/17 at 13:00 Potassium Chloride (Klor-Con 10) 20 meq DAILY PO Last administered on 09:58; Admin Dose 20 MEQ; Start 04/19/17 at 09:00 Hydralazine HCl (Apresoline) 25 mg TID PO Last administered on 04/21/17 09:59 ; Admin Dose 25 MG; Start 04/19/17 at 09:00 Enoxaparin Sodium (Lovenox) 40 mg DAILY SC Last administered on 04/21/17 10: 11; Admin Dose 40 MG; Start 04/19/17 at 09:00 OTILIA LONDON MD Apr 21, 2017 13:28
[2017-04-21] MEDS: morphine 2 MG INJ IV PRN ×2 (14:02→22:06)
[2017-04-21] MEDS: ATORVASTATIN 40 MG TAB PO SCH (21:40)
[2017-04-22] VITALS (13 sets, daily range): BP systolic 127–175; BP diastolic 64–120; PULSE 86–99; RESP 16–20
[2017-04-22] MEDS: FUROSEMIDE 40 MG INJ IV SCH ×2 (06:03→18:10)
[2017-04-22] MEDS: hydrALAzine 20 MG INJ IV PRN (06:06)
[2017-04-22] MEDS: ENOXAPARIN 40 MG/0.4 ML SYG SC SCH (08:08)
[2017-04-22] MEDS: ASPIRIN 81 MG TAB PO SCH (08:09)
[2017-04-22] MEDS: FAMOTIDINE 20 MG TAB PO SCH (08:09)
[2017-04-22] MEDS: FENOFIBRATE 48 MG TAB PO SCH (08:09)
[2017-04-22] MEDS: POTASSIUM CHLORIDE (SR) 10 MEQ TAB PO SCH (08:09)
[2017-04-22] MEDS: LISINOPRIL 20 MG TAB PO SCH ×2 (08:10→20:27)
[2017-04-22] MEDS: ACETAMINOPHEN 325 MG TAB PO PRN (08:11)
[2017-04-22 09:13] LABS: CALCIUM 9.3 mg/dl (8.4-10.2); CREATININE 1.01 mg/dl (0.61-1.24); MAGNESIUM 1.9 mg/dl (1.7-2.5); POTASSIUM 3.9 mmol/L (3.5-5.1)
[2017-04-22] MEDS: morphine 2 MG INJ IV PRN ×2 (10:48→20:30)
--- NOTE | 2017-04-22 11:47 | PN ---
Date/Time of Note Date/Time of Note DATE: 04/22/17 TIME: 10:29 Assessment/Plan VTE Prophylaxis VTE Prophylaxis Intervention: other Lines/Catheters IV Catheter Type (from [facility]): Saline Lock Urinary Cath still in place: No Assessment/Plan Assessment/Plan - Acute on chronic systolic congestive heart failure exacerbation- no chest pain at present. - Continue Lasix, monitor electrolytes. - Cardiomegaly with ejection fraction of 25%. - Elevated troponin continue aspirin. Dr. Montelongo is following in cardiology consultation. - Hypertension. Continue Coreg, lisinopril and Hydralazine p.r.n. - Hyperlipidemia. Continue Atorvastatin and fenofibrate. - Poor medical compliance methamphetamine use - Methamphetamine use, social media senior associate consult Further recommendations based on clinical course. Plan of care discussed with Dr. Liriano. Subjective 24 Hr Interval Summary Free Text/Dictation BP elevated, afebrile denies any chest pain, shortness of breath dw staff Respiratory: no complaints Cardiovascular: no complaints Gastrointestinal: no complaints Genitourinary: no complaints Musculoskeletal: no complaints Neurologic: headache Exam/Review of Systems Vital Signs Vitals Vital Signs Date Time Temp Pulse Resp B/P Pulse Ox O2 Delivery O2 Flow Rate FiO2 04/22/17 08:15 95 04/22/17 07:21 98.0 18 160/89 96 04/20/17 05:00 Room Air 04/18/17 08:18 3.0 Intake and Output 04/21/17 04/21/17 04/22/17 15:00 23:00 07:00 Intake Total 1200 ml 1100 ml Output Total 2200 ml 1800 ml Balance -1000 ml -700 ml Exam Constitutional: alert, obese Respiratory: clear to auscultation, diminished breath sounds Cardiovascular: nl pulses, other (s1s2) Gastrointestinal: non-tender, soft Musculoskeletal: nl extremities to inspection Extremities: normal pulses Neurological: nl mental status, nl speech, other (alert, awake, responsive) Results Result Diagram: 04/21/17 0727 04/22/17 0814 Results 24 hrs Laboratory Tests Test 04/22/17 08:14 Sodium Level 145 H Potassium Level 3.9 Chloride Level 101 Carbon Dioxide Level 32 H Anion Gap 16 Blood Urea Nitrogen 19 Creatinine 1.01 Glucose Level 110 Calcium Level 9.3 Magnesium Level 1.9 Medications Medications Current Medications Hydralazine HCl (Apresoline) 10 mg Q4H PRN IV SBP>170;DBP >95 Last administered on 04/22/17 06:06; Admin Dose 10 MG; Start 04/18/17 at 11:00 Aspirin (Aspirin) 81 mg DAILY PO Last administered on 04/22/17 08:09; Admin Dose 81 MG; Start 04/18/17 at 11:30 Atorvastatin Calcium (Lipitor) 40 mg HS PO Last administered on 04/21/17 21: 40; Admin Dose 40 MG; Start 04/18/17 at 21:00 Famotidine (Pepcid) 20 mg DAILY PO Last administered on 04/22/17 08:09; Admin Dose 20 MG; Start 04/18/17 at 11:30 Fenofibrate (Tricor) 48 mg DAILY PO Last administered on 04/22/17 08:09; Admin Dose 48 MG; Start 04/19/17 at 09:00 Carvedilol (Coreg) 12.5 mg BID PO Last administered on 04/22/17 08:11; Admin Dose 12.5 MG; Start 04/18/17 at 12:00 Lisinopril (Zestril) 20 mg BID PO Last administered on 04/22/17 08:10; Admin Dose 20 MG; Start 04/18/17 at 12:00 Morphine Sulfate (morphine) 2 mg Q4H PRN IV PAIN LEVEL 8-10 Last administered on 04/21/17 22:06; Admin Dose 2 MG; Start 04/18/17 at 13:00 Acetaminophen (Tylenol Tab) 650 mg Q4H PRN PO PAIN AND OR ELEVATED TEMP Last administered on 04/22/17 08:11; Admin Dose 650 MG; Start 04/18/17 at 13:00 Ondansetron HCl (Zofran Inj) 4 mg Q6H PRN IV NAUSEA AND/OR VOMITING Last administered on 04/19/17 03:36; Admin Dose 4 MG; Start 04/18/17 at 13:00 Potassium Chloride (Klor-Con 10) 20 meq DAILY PO Last administered on 08:09; Admin Dose 20 MEQ; Start 04/19/17 at 09:00 Hydralazine HCl (Apresoline) 25 mg TID PO Last administered on 04/22/17 08:10 ; Admin Dose 25 MG; Start 04/19/17 at 09:00 Enoxaparin Sodium (Lovenox) 40 mg DAILY SC Last administered on 04/22/17t 08: 08; Admin Dose 40 MG; Start 04/19/17 at 09:00 DARRICK ZULUAGA Apr 22, 2017 10:42
[2017-04-22 12:02] LABS: BASOPHIL # 0.1 10^3/ul (0.0-0.1); BASOPHILS % 0.8 % (0.0-2.0); EOSINOPHILS # 0.4 10^3/ul (0.0-0.5); EOSINOPHILS % 4.1 % (0.0-7.0); HEMATOCRIT 46.8 % (42.0-52.0); HEMOGLOBIN 13.6 g/dl (14.0-18.0); LYMPHOCYTES # 1.5 10^3/ul (0.8-2.9); LYMPHOCYTES % 17.3 % (15.0-51.0); MEAN CORPUSCULAR HEMOGLOBIN 23.1 pg (29.0-33.0); MEAN CORPUSCULAR HGB CONC 29.1 g/dl (32.0-37.0); MEAN CORPUSCULAR VOLUME 79.5 fl (82.0-101.0); MEAN PLATELET VOLUME 9.6 fl (7.4-10.4); MONOCYTE # 0.8 10^3/ul (0.3-0.9); MONOCYTES % 9.3 % (0.0-11.0); NEUTROPHIL # 5.7 10^3/ul (1.6-7.5); NEUTROPHILS % 67.9 % (39.0-77.0); PLATELET COUNT 620 10^3/UL (140-415); RED BLOOD COUNT 5.89 10^6/ul (4.70-6.10); RED CELL DISTRIBUTION WIDTH 15.9 % (11.5-14.5); WHITE BLOOD COUNT 8.5 10^3/ul (4.8-10.8)
[2017-04-22] MEDS: ATORVASTATIN 40 MG TAB PO SCH (20:27)
[2017-04-23] VITALS (10 sets, daily range): BP systolic 134–169; BP diastolic 68–96; PULSE 83–97; RESP 17–20
[2017-04-23] MEDS: FUROSEMIDE 40 MG INJ IV SCH ×2 (05:45→18:34)
[2017-04-23] MEDS: FENOFIBRATE 48 MG TAB PO SCH (08:32)
[2017-04-23] MEDS: LISINOPRIL 20 MG TAB PO SCH ×2 (08:33→20:38)
[2017-04-23] MEDS: POTASSIUM CHLORIDE (SR) 10 MEQ TAB PO SCH (08:33)
[2017-04-23] MEDS: FAMOTIDINE 20 MG TAB PO SCH (08:33)
[2017-04-23] MEDS: ASPIRIN 81 MG TAB PO SCH (08:33)
[2017-04-23] MEDS: ENOXAPARIN 40 MG/0.4 ML SYG SC SCH (08:35)
[2017-04-23 08:37] LABS: CALCIUM 9.3 mg/dl (8.4-10.2); CREATININE 1.04 mg/dl (0.61-1.24); POTASSIUM 3.9 mmol/L (3.5-5.1)
--- NOTE | 2017-04-23 10:27 | PN ---
Date/Time of Note Date/Time of Note DATE: 04/23/17 TIME: 10:22 Assessment/Plan VTE Prophylaxis VTE Prophylaxis Intervention: other Lines/Catheters IV [facility] Type [facility]from [facility] Saline Lock Urinary Cath still in place: No Assessment/Plan Assessment/Plan - Acute on chronic systolic congestive heart failure exacerbation- no chest pain at present. - Continue Lasix, monitor electrolytes. - Cardiomegaly with ejection fraction of 25%. - Elevated troponin continue aspirin. Dr. Montelongo is following in cardiology consultation. - Hypertension. Continue Coreg, lisinopril and Hydralazine p.r.n. - Hyperlipidemia. Continue Atorvastatin and fenofibrate. - Poor medical compliance methamphetamine use - Methamphetamine use, social insurance administrator consult When cleared by cardiology- will dc patient home.Further recommendations based on clinical course. Plan of care discussed with Dr. Liriano. Subjective 24 Hr Interval Summary Constitutional: improved Respiratory: no complaints Cardiovascular: other (ELEVATED b) Gastrointestinal: no complaints Musculoskeletal: no complaints Exam/Review of Systems Vital Signs Vitals Vital Signs Date Time Temp Pulse Resp B/P Pulse Ox O2 Delivery O2 Flow Rate FiO2 04/23/17 08:12 97.8 99 18 169/96 97 04/20/17 05:00 Room Air Intake and Output 04/22/17 04/22/17 04/23/17 14:59 22:59 06:59 Intake Total 1850 ml 1500 ml Output Total 2100 ml 1900 ml Balance -250 ml -400 ml Exam Constitutional: alert, oriented, well developed Respiratory: clear to auscultation, normal air movement Cardiovascular: nl pulses, other (S1S2) Gastrointestinal: non-tender, soft Musculoskeletal: nl extremities to inspection Extremities: normal pulses Neurological: nl mental status, nl speech Results Result Diagram: 04/22/17 0812 04/23/17 0734 Results 24 hrs Laboratory Tests Test 04/23/17 07:34 Sodium Level 144 Potassium Level 3.9 Chloride Level 101 Carbon Dioxide Level 31 Anion Gap 16 Blood Urea Nitrogen 21 H Creatinine 1.04 Glucose Level 105 Calcium Level 9.3 Medications Medications Current Medications Hydralazine HCl (Apresoline) 10 mg Q4H PRN IV SBP>170;DBP >95 Last administered on 04/22/17t 06:06; Admin Dose 10 MG; Start 04/18/17 at 11:00 Aspirin (Aspirin) 81 mg DAILY PO Last administered on 04/23/17 08:33; Admin Dose 81 MG; Start 04/18/17 at 11:30 Atorvastatin Calcium (Lipitor) 40 mg HS PO Last administered on 04/22/17 20: 27; Admin Dose 40 MG; Start 04/18/17 at 21:00 Famotidine (Pepcid) 20 mg DAILY PO Last administered on 04/23/17 08:33; Admin Dose 20 MG; Start 04/18/17 at 11:30 Fenofibrate (Tricor) 48 mg DAILY PO Last administered on 04/23/17 08:32; Admin Dose 48 MG; Start 04/19/17 at 09:00 Carvedilol (Coreg) 12.5 mg BID PO Last administered on 04/23/17 08:34; Admin Dose 12.5 MG; Start 04/18/17 at 12:00 Lisinopril (Zestril) 20 mg BID PO Last administered on 04/23/17 08:33; Admin Dose 20 MG; Start 04/18/17 at 12:00 Morphine Sulfate (morphine) 2 mg Q4H PRN IV PAIN LEVEL 8-10 Last administered on 04/22/17 20:30; Admin Dose 2 MG; Start 04/18/17 at 13:00 Acetaminophen (Tylenol Tab) 650 mg Q4H PRN PO PAIN AND OR ELEVATED TEMP Last administered on 04/22/17 08:11; Admin Dose 650 MG; Start 04/18/17 at 13:00 Ondansetron HCl (Zofran Inj) 4 mg Q6H PRN IV NAUSEA AND/OR VOMITING Last administered on 04/19/17 03:36; Admin Dose 4 MG; Start 04/18/17 at 13:00 Potassium Chloride (Klor-Con 10) 20 meq DAILY PO Last administered on 08:33; Admin Dose 20 MEQ; Start 04/19/17 at 09:00 Hydralazine HCl (Apresoline) 25 mg TID PO Last administered on 04/23/17 08:34 ; Admin Dose 25 MG; Start 04/19/17 at 09:00 Enoxaparin Sodium (Lovenox) 40 mg DAILY SC Last administered on 04/23/17 08: 35; Admin Dose 40 MG; Start 04/19/17 at 09:00 DARRICK ZULUAGA Apr 23, 2017 10:27
[2017-04-23] MEDS: morphine 2 MG INJ IV PRN ×2 (10:35→18:32)
[2017-04-23] MEDS: ATORVASTATIN 40 MG TAB PO SCH (20:39)
[2017-04-24] VITALS (7 sets, daily range): BP systolic 123–158; BP diastolic 66–89; PULSE 77–95; RESP 18–20
[2017-04-24] MEDS: FUROSEMIDE 40 MG INJ IV SCH (06:07)
[2017-04-24] MEDS: morphine 2 MG INJ IV PRN (07:53)
[2017-04-24] MEDS: ASPIRIN 81 MG TAB PO SCH (08:38)
[2017-04-24] MEDS: FAMOTIDINE 20 MG TAB PO SCH (08:39)
[2017-04-24] MEDS: FENOFIBRATE 48 MG TAB PO SCH (08:39)
[2017-04-24] MEDS: LISINOPRIL 20 MG TAB PO SCH (08:39)
[2017-04-24] MEDS: POTASSIUM CHLORIDE (SR) 10 MEQ TAB PO SCH (08:39)
[2017-04-24] MEDS: ENOXAPARIN 40 MG/0.4 ML SYG SC SCH (08:41)
--- NOTE | 2017-04-24 10:49 | PDOCDIS ---
Discharge Instructions CONDITION Patient Condition: Stable HOME CARE INSTRUCTIONS: Special Diet: cardiac diet ACTIVITY: Activity Restrictions: Slowly Increase Activity Rest between Activity Avoid heavy lifting Do not Drive Do not operate Machinery Do not operate Power Tool Avoid Heavy Housework Keep Limb Elevated Bathing Restrictions: Sponge Bath FOLLOW UP/APPOINTMENTS Follow-up Plan Follow-up with up with primary in 1 week FU with cardiology as recommended. Call 911 or go to the nearest hospital if symptoms get worse. Patient verbalized understanding of discharge instructions Dw Dr Liriano/staff/pt. DARRICK ZULUAGA Apr 24, 2017 10:49
--- NOTE | 2017-04-24 10:56 | DS ---
Date/Time of Note Date/Time of Note DATE: 04/24/17 TIME: 10:50 Discharge Summary Admission/Discharge Info Admit Date/Time Apr 18, 2017 at 00:32 Discharge Date/Time Discharge Diagnosis - Acute on chronic systolic congestive heart failure exacerbation. - Cardiomegaly with ejection fraction of 25%. - Elevated troponin continue aspirin. - BLE edema resolved - Hypertension. - Hyperlipidemia. 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 The patient got admitted with c/o shortness of breath and chest pain, nausea, increase in bilateral lower extremity edema and orthopnea. - chest x-ray revealed marked cardiomegaly, mild pulmonary vascular congestion , and old right clavicular fracture deformity. - troponin was 0.1, on admission, BNP was 2950 - patient was admitted for further evaluation and management. Cardiology cleared the patient and is discharged home in a stable condition Constitutional: alert, oriented, well developed Respiratory: clear to auscultation, normal air movement Cardiovascular: nl pulses, other (S1S2) Gastrointestinal: non-tender, soft Musculoskeletal: nl extremities to inspection. BLE edema resolved Extremities: normal pulses Neurological: nl mental status, nl speech discussed with Dr. Liriano. Home Meds Active Scripts Potassium Chloride* (K-Dur*) 10 Meq Tab.prt.sr, 10 MEQ PO DAILY for 30 Days Prov:DARRICK ZULUAGA 03/16/17 Furosemide (Lasix) 20 Mg Tab, 20 MG PO DAILY for 30 Days, TAB Prov:DARRICK ZULUAGA 03/16/17 Famotidine* (Famotidine*) 20 Mg Tablet, 20 MG PO DAILY for 30 Days, TAB Prov:DARRICK ZULUAGA 03/16/17 Furosemide* (Lasix*) 20 Mg Tablet, 20 MG PO DAILY, #5 TAB Prov:CARISSA NUNEZ PA-C 03/03/17 Lisinopril* (Lisinopril*) 20 Mg Tablet, 20 MG PO BID for 30 Days, TAB Prov:JEANNA MYERS 09/02/16 Atorvastatin* (Atorvastatin*) 40 Mg Tablet, 40 MG PO HS for 30 Days, TAB Prov:DAYAMI MYERSA 09/02/16 Fenofibrate Nanocrystallized* (Fenofibrate*) 48 Mg Tablet, 48 MG PO DAILY for 30 Days, TAB Prov:LOUIS,JEANNA 09/02/16 Carvedilol* (Carvedilol*) 12.5 Mg Tablet, 12.5 MG PO BID for 30 Days, TAB Prov:LOUIS,JEANNA 09/02/16 Aspirin (Aspirin) 81 Mg Chew, 81 MG PO DAILY for 30 Days, TAB Prov:LOUIS,JEANNA 09/02/16 Lorazepam* (Lorazepam*) 1 Mg Tablet, 1 MG PO HS Y for ANXIETY, #20 TAB Prov:XAVIER HARVEY QM CONSULTANT 10/20/15 Reported Medications Clonidine Hcl* (Clonidine Hcl*) 0.1 Mg Tab, 0.1 MG PO Q8, TAB 08/23/16 Follow-up Plan Follow-up with up with primary in 1 week FU with cardiology as recommended. Call 911 or go to the nearest hospital if symptoms get worse. Patient verbalized understanding of discharge instructions Dw Dr Liriano/staff/pt. Primary Care Provider [facility] Time spent on discharge: < 30 minutes DARRICK ZULUAGA Apr 24, 2017 10:56
[2017-04-24] MEDS ORDERED: FURO-109 PO (11:29)
[2017-04-24] MEDS ORDERED: POTA10TA37 PO (11:29)
== END 2017-04-24 11:50 | disposition home or self-care (01) | DRG 292 ==
LOC: FTE 19:38 → MS3 04-18 00:32 → MS4 04-18 23:42
PROVIDERS: ADMIT Internal Medicine; ATTEND Internal Medicine
DX: I11.0 Hypertensive heart disease with heart failure (principal); I50.23 Acute on chronic systolic (congestive) heart failure; I47.1 Supraventricular tachycardia; I42.9 Cardiomyopathy, unspecified; E78.5 Hyperlipidemia, unspecified; F17.200 Nicotine dependence, unspecified, uncomplicated; F15.90 Other stimulant use, unspecified, uncomplicated; Z91.19 Patient's noncompliance with other medical treatment and regimen
CPT/HCPCS: 36415; 71010; 80048; 80053; 83735; 83880; 84484; 85025; 93005; 96374; 96375; J0360; J1650; J1940; J2270; J2405; J3475

== ENCOUNTER 2018-01-25 07:54 | Emergency (ER) | END 2018-01-25 14:43 | disposition home or self-care (01) ==

== ENCOUNTER 2018-04-29 23:10 | Emergency (ER) | END 2018-04-30 01:41 | disposition home or self-care (01) ==